=== PATIENT | female | born 1940 | race Caucasian/White ===

== ENCOUNTER → 2016-08-07 | Outpatient (CLI) | payer OTHER, BC ==
[~2016-08-07] MED LIST: ADVAIR HFA 230M12 GM INH; ADVAIR HFA115 MCG/21 INH; ALBUTEROL2.5 MG/31 INH; APAP500 PO; ASPIR 8181 MG PO; ASPIRIN325 PO; BUDEPRION XL300 MG PO; BYSTOLIC 5 MG5 M1 PO; BYSTOLIC10 MG PO; CALCIUM 600 +1 EA15 PO; CALCIUM 600 +1 EAC5 PO; CALCIUM CARBON600 MG PO; CELEXA 10 MG TA10 M1 PO; CELEXA20 MG PO; CENTRUM SILVER1 EAC4 PO; COLACE 100 MG100 MG PO; DIFLUCAN50 MG PO; DIOVAN HCT 1601 EACH PO; DIOVAN HCT 3201 EAC1 PO; DURAGESIC1 EAC2 TD; EFFIENT10 MG PO; ESTRACE1 MG PO; ESTRADIOL 1 MG T1 M1 PO; FISH OIL 1,0001 EAC7 PO; FISH OIL 1,0001 EAC8 PO; FISH OIL300 MG PO; GABAPENTIN 100100 MG PO; HYDROCHLOROTHIA25 M2 PO; IRON325 PO; LIPITOR 20 MG T20 M1 PO; LIPITOR40 MG PO; MAGNESIUM250 M1 PO; MIRALAX17 GM PO; MIRALAX255 GM PO; NORCO 10-325 T1 EACH PO; PLAVIX 75 MG TA75 M1 PO; PROTONIX40 M2 PO; SENNA S TABLET1 EACH PO; SPIRIVA INH; STIOLTO RESPIMAT4 GM INH; TRAMADOL 50 MG50 MG PO; VENTOLIN HFA INH8 GM INH; VITAMIN C500 M1 PO; VITAMINC500 PO; VOLTAREN 50MG T50 MG PO; VOLTAREN GEL 1100 G1 TRANSDERM; VOLTAREN GEL 1100 G2 TOP; WELLBUTRIN XL150 MG PO
== END ==
LOC: HYPER 07:12
DX: L97.212 Non-pressure chronic ulcer of right calf with fat layer exposed (principal); I70.203 Unspecified atherosclerosis of native arteries of extremities, bilateral legs; I50.20 Unspecified systolic (congestive) heart failure; I25.10 Atherosclerotic heart disease of native coronary artery without angina pectoris; I73.9 Peripheral vascular disease, unspecified; K21.9 Gastro-esophageal reflux disease without esophagitis; M19.90 Unspecified osteoarthritis, unspecified site; Z86.718 Personal history of other venous thrombosis and embolism; Z87.891 Personal history of nicotine dependence; Z72.89 Other problems related to lifestyle

== ENCOUNTER → 2016-10-21 | Outpatient (CLI) | payer OTHER, BC | LOC: HYPER 10-10 15:15 | DX: T63.301D Toxic effect of unspecified spider venom, accidental (unintentional), subsequent encounter (principal); L97.212 Non-pressure chronic ulcer of right calf with fat layer exposed; I70.203 Unspecified atherosclerosis of native arteries of extremities, bilateral legs; I50.20 Unspecified systolic (congestive) heart failure; I25.10 Atherosclerotic heart disease of native coronary artery without angina pectoris; K21.9 Gastro-esophageal reflux disease without esophagitis; M19.90 Unspecified osteoarthritis, unspecified site; Z90.710 Acquired absence of both cervix and uterus; Z87.891 Personal history of nicotine dependence; Z72.89 Other problems related to lifestyle ==

== ENCOUNTER → 2016-10-22 | Outpatient (CLI) | payer OTHER, BC ==
[2016-10-22 11:05] VITALS: BP 126/41
[2016-10-22 13:05] VITALS: BP 127/37
== END ==
LOC: OPONC 10-21 08:21
DX: D50.9 Iron deficiency anemia, unspecified (principal)
CPT/HCPCS: 95000

== ENCOUNTER → 2016-10-28 | Outpatient (CLI) | payer OTHER, BC ==
[~2016-10-28] MED LIST changes: +ASPIRIN EC81 M1 PO; +FISH OIL 1,2001 EAC4 PO; +NEURONTIN 300300 M1 PO; +NEURONTIN300 MG PO
[2016-10-28 11:10] VITALS: BP 125/34
[2016-10-28 12:30] VITALS: BP 130/34
== END ==
LOC: OPONC 08:11
DX: D50.9 Iron deficiency anemia, unspecified (principal)
CPT/HCPCS: 95000

== ENCOUNTER → 2016-11-04 | Outpatient (CLI) | payer OTHER, BC ==
[~2016-11-04] MED LIST changes: -ASPIRIN EC81 M1 PO; -FISH OIL 1,2001 EAC4 PO; -NEURONTIN 300300 M1 PO; -NEURONTIN300 MG PO
[2016-11-04 12:17] VITALS: BP 127/38
== END ==
LOC: OPONC 06:23
DX: D50.9 Iron deficiency anemia, unspecified (principal)
CPT/HCPCS: 95000

== ENCOUNTER → 2016-11-11 | Outpatient (CLI) | payer OTHER, BC ==
[2016-11-11 11:20] VITALS: BP 112/32
[2016-11-11 13:30] VITALS: BP 138/46
== END ==
LOC: OPONC 07:01
DX: D50.8 Other iron deficiency anemias (principal)
CPT/HCPCS: 95000; 95001

== ENCOUNTER → 2016-11-29 | Outpatient (CLI) | payer OTHER, BC ==
[~2016-11-29] MED LIST changes: +ASPIRIN EC81 M1 PO; +FISH OIL 1,2001 EAC4 PO; +NEURONTIN 300300 M1 PO; +NEURONTIN300 MG PO
[2016-11-29 09:58] VITALS: BP 145/50; BP 151/55
== END ==
LOC: OPONC 06:20
DX: D50.0 Iron deficiency anemia secondary to blood loss (chronic) (principal)
CPT/HCPCS: 91030

== ENCOUNTER → 2016-12-02 | Outpatient (CLI) | payer OTHER, BC | LOC: HYPER 07:09 | DX: L97.212 Non-pressure chronic ulcer of right calf with fat layer exposed (principal); I70.203 Unspecified atherosclerosis of native arteries of extremities, bilateral legs; I50.20 Unspecified systolic (congestive) heart failure; I25.10 Atherosclerotic heart disease of native coronary artery without angina pectoris; I73.9 Peripheral vascular disease, unspecified; K21.9 Gastro-esophageal reflux disease without esophagitis; M19.90 Unspecified osteoarthritis, unspecified site; Z86.718 Personal history of other venous thrombosis and embolism; Z87.891 Personal history of nicotine dependence; Z72.89 Other problems related to lifestyle ==

== ENCOUNTER → 2017-01-01 | Outpatient (CLI) | payer OTHER, BC | LOC: HYPER 07:09 | DX: T63.301D Toxic effect of unspecified spider venom, accidental (unintentional), subsequent encounter (principal); L97.212 Non-pressure chronic ulcer of right calf with fat layer exposed; I70.203 Unspecified atherosclerosis of native arteries of extremities, bilateral legs; R60.0 Localized edema; I50.20 Unspecified systolic (congestive) heart failure; I25.10 Atherosclerotic heart disease of native coronary artery without angina pectoris; K21.9 Gastro-esophageal reflux disease without esophagitis; M19.90 Unspecified osteoarthritis, unspecified site; Z90.710 Acquired absence of both cervix and uterus; Z87.891 Personal history of nicotine dependence; Z72.89 Other problems related to lifestyle; Z68.27 Body mass index [BMI] 27.0-27.9, adult ==

== ENCOUNTER → 2017-01-08 | Outpatient (CLI) | payer OTHER, BC | LOC: HYPER 07:10 | DX: L97.212 Non-pressure chronic ulcer of right calf with fat layer exposed (principal); I70.203 Unspecified atherosclerosis of native arteries of extremities, bilateral legs; I25.10 Atherosclerotic heart disease of native coronary artery without angina pectoris; I50.9 Heart failure, unspecified; I73.9 Peripheral vascular disease, unspecified; K21.9 Gastro-esophageal reflux disease without esophagitis; M19.90 Unspecified osteoarthritis, unspecified site; Z86.718 Personal history of other venous thrombosis and embolism; Z87.891 Personal history of nicotine dependence; Z72.89 Other problems related to lifestyle ==

== ENCOUNTER → 2017-01-15 | Outpatient (CLI) | payer OTHER, BC ==
[2017-01-15 11:00] VITALS: BP 108/39; BP 116/42
== END ==
LOC: OPONC 06:21
DX: D50.9 Iron deficiency anemia, unspecified (principal)
CPT/HCPCS: 91030

== ENCOUNTER → 2017-01-22 | Outpatient (CLI) | payer OTHER, BC | LOC: HYPER 07:06 | DX: I70.232 Atherosclerosis of native arteries of right leg with ulceration of calf (principal); L97.212 Non-pressure chronic ulcer of right calf with fat layer exposed; I50.20 Unspecified systolic (congestive) heart failure; I25.10 Atherosclerotic heart disease of native coronary artery without angina pectoris; K21.9 Gastro-esophageal reflux disease without esophagitis; M19.90 Unspecified osteoarthritis, unspecified site; Z90.710 Acquired absence of both cervix and uterus; Z87.891 Personal history of nicotine dependence; Z72.89 Other problems related to lifestyle ==

== ENCOUNTER → 2017-01-23 | Outpatient (CLI) | payer OTHER, BC ==
[2017-01-23 12:12] VITALS: BP 114/39
[2017-01-23 12:17] LABS: HEMATOCRIT 24.6 % (37.0-47.0); HEMOGLOBIN 8.2 gm/dL (12.0-15.0)
[2017-01-23 13:05] VITALS: BP 123/66
== END ==
LOC: OPONC 06:24
PROVIDERS: Internal Medicine
DX: D50.9 Iron deficiency anemia, unspecified (principal); R53.83 Other fatigue; R06.02 Shortness of breath
CPT/HCPCS: 95000

== ENCOUNTER → 2017-01-29 | Outpatient (CLI) | payer OTHER, BC ==
[2017-01-29 12:50] VITALS: BP 144/49
[2017-01-29 14:05] VITALS: BP 144/51
== END ==
LOC: OPONC 00:34
DX: D50.9 Iron deficiency anemia, unspecified (principal); R06.02 Shortness of breath; R53.83 Other fatigue
CPT/HCPCS: 95000

== ENCOUNTER → 2017-01-31 | Outpatient (CLI) | payer OTHER, BC ==
[2017-01-31 13:00] VITALS: BP 114/33
[2017-01-31 13:30] VITALS: BP 104/38
== END ==
LOC: OPONC 01:36
DX: D50.9 Iron deficiency anemia, unspecified (principal)
CPT/HCPCS: 95000

== ENCOUNTER → 2017-02-03 | Outpatient (CLI) | payer OTHER, BC ==
[2017-02-03 10:20] VITALS: BP 110/33
[2017-02-03 11:35] VITALS: BP 154/47
== END ==
LOC: OPONC 02:08
DX: D50.9 Iron deficiency anemia, unspecified (principal)
CPT/HCPCS: 95000

== ENCOUNTER → 2017-02-12 | Outpatient (CLI) | payer OTHER, BC | LOC: HYPER 06:56 | DX: L97.212 Non-pressure chronic ulcer of right calf with fat layer exposed (principal); I70.203 Unspecified atherosclerosis of native arteries of extremities, bilateral legs; I25.10 Atherosclerotic heart disease of native coronary artery without angina pectoris; I73.9 Peripheral vascular disease, unspecified; K21.9 Gastro-esophageal reflux disease without esophagitis; I50.9 Heart failure, unspecified; Z86.718 Personal history of other venous thrombosis and embolism; M19.90 Unspecified osteoarthritis, unspecified site; Z90.710 Acquired absence of both cervix and uterus; Z87.891 Personal history of nicotine dependence; Z72.89 Other problems related to lifestyle ==

== ENCOUNTER → 2017-02-28 | Outpatient (CLI) | payer OTHER, BC | LOC: OPONC 01:00 | DX: D50.0 Iron deficiency anemia secondary to blood loss (chronic) (principal) | CPT/HCPCS: 95116 ==

== ENCOUNTER → 2017-03-06 | Outpatient (CLI) | payer OTHER, BC | LOC: HYPER 02-27 13:34 | DX: T63.301D Toxic effect of unspecified spider venom, accidental (unintentional), subsequent encounter (principal); I70.203 Unspecified atherosclerosis of native arteries of extremities, bilateral legs; L97.212 Non-pressure chronic ulcer of right calf with fat layer exposed; R60.0 Localized edema; I50.20 Unspecified systolic (congestive) heart failure; I25.10 Atherosclerotic heart disease of native coronary artery without angina pectoris; I73.9 Peripheral vascular disease, unspecified; K21.9 Gastro-esophageal reflux disease without esophagitis; M19.90 Unspecified osteoarthritis, unspecified site; Z90.710 Acquired absence of both cervix and uterus; Z87.891 Personal history of nicotine dependence; Z72.89 Other problems related to lifestyle; W57.XXXD Bitten or stung by nonvenomous insect and other nonvenomous arthropods, subsequent encounter ==

== ENCOUNTER → 2017-03-13 | Outpatient (CLI) | payer OTHER, BC | LOC: HYPER 07:09 | DX: I70.232 Atherosclerosis of native arteries of right leg with ulceration of calf (principal); L97.212 Non-pressure chronic ulcer of right calf with fat layer exposed; I50.20 Unspecified systolic (congestive) heart failure; I25.10 Atherosclerotic heart disease of native coronary artery without angina pectoris; K21.9 Gastro-esophageal reflux disease without esophagitis; M19.90 Unspecified osteoarthritis, unspecified site; Z90.710 Acquired absence of both cervix and uterus; Z87.891 Personal history of nicotine dependence; Z72.89 Other problems related to lifestyle ==

== ENCOUNTER → 2017-03-20 | Outpatient (CLI) | payer OTHER, BC ==
[~2017-03-20] MED LIST changes: +CALCIUM 600 +1 EAC1 PO; +TYLENOL EXTRA500 MG PO; +VALSARTAN-HCTZ1 EAC1 PO; +VOLTAREN GEL 1100 G1 TOP; -VOLTAREN GEL 1100 G1 TRANSDERM; +ZYVOX600 MG PO
== END ==
LOC: HYPER 03-19 14:31
DX: L97.212 Non-pressure chronic ulcer of right calf with fat layer exposed (principal); I70.203 Unspecified atherosclerosis of native arteries of extremities, bilateral legs; I50.20 Unspecified systolic (congestive) heart failure; B95.62 Methicillin resistant Staphylococcus aureus infection as the cause of diseases classified elsewhere; I25.10 Atherosclerotic heart disease of native coronary artery without angina pectoris; I73.9 Peripheral vascular disease, unspecified; K21.9 Gastro-esophageal reflux disease without esophagitis; M19.90 Unspecified osteoarthritis, unspecified site; Z87.891 Personal history of nicotine dependence; Z72.89 Other problems related to lifestyle; Z90.710 Acquired absence of both cervix and uterus

== ENCOUNTER → 2017-03-21 | Outpatient (CLI) | payer OTHER, BC ==
[~2017-03-21] VITALS: Ht 152.4 cm; Wt 64.4 kg
--- NOTE | ~2017-03-21 | P ---
[facility] [place] [address] PROCEDURE REPORT Name: LUISTHIAGO NELSON Room #: REG [facility]#: [id number] Admission: 03/21/17 Attend Phys: Nikhil Eagle Discharge: Date of : 40 Report #: [id number] THIS REPORT FOR: //name// CC: Nikhil Reid MD DATE OF PROCEDURE: 03/21/2017. PROCEDURE PERFORMED: Upper endoscopy with small bowel enteroscopy and bleeding control. 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 The patient has a history of anticoagulation therapy due to atrial fibrillation, this has been held for the last several days. Plan is for EGD with enteroscopy. DESCRIPTION OF PROCEDURE: The risks and benefits of the procedure were explained to the patient, those risks including but not limited to bleeding, perforation, the risk of sedation. She understood these risks and gave informed consent. Sedation was given using propofol per anesthesia. Next, using [employer] small bowel enteroscope, the scope was placed in the patient's mouth and advanced under direct vision through the esophagus, stomach and into the duodenum and into the jejunum, I was able to advance the scope to approximately 130 cm. The scope was then slowly withdrawn. Two nonbleeding small AVMs were noted within the jejunum both were cauterized with a 7-Tuvaluan bipolar cautery. No evidence of bleeding after cauterization. A single AVM was also noted in the stomach, not nonbleeding also cauterized, otherwise normal exam, the scope was then withdrawn and the procedure terminated. The patient tolerated the procedure well. IMPRESSION: 1. Two small nonbleeding AVMs noted in the jejunum, both were cauterized. 2. Small gastric AVM also cauterized. RECOMMENDATIONS: 1. Observe the patient post-procedure. 2. Continue IV iron therapy and monitoring hemoglobin. Thank you for allowing me to participate in her care. By: [id number] Nikhil Glover MD /nt
== END | disposition home or self-care (01) ==
LOC: GI 08:21
DX: K55.20 Angiodysplasia of colon without hemorrhage (principal); K31.819 Angiodysplasia of stomach and duodenum without bleeding; I13.0 Hypertensive heart and chronic kidney disease with heart failure and stage 1 through stage 4 chronic kidney disease, or unspecified chronic kidney disease; I50.9 Heart failure, unspecified; N18.9 Chronic kidney disease, unspecified; I25.2 Old myocardial infarction; I25.10 Atherosclerotic heart disease of native coronary artery without angina pectoris; J43.9 Emphysema, unspecified; E78.00 Pure hypercholesterolemia, unspecified; M19.90 Unspecified osteoarthritis, unspecified site; K21.9 Gastro-esophageal reflux disease without esophagitis; F32.89 Other specified depressive episodes; G47.33 Obstructive sleep apnea (adult) (pediatric); Z95.5 Presence of coronary angioplasty implant and graft; Z88.8 Allergy status to other drugs, medicaments and biological substances; Z90.710 Acquired absence of both cervix and uterus; Z98.890 Other specified postprocedural states; Z87.891 Personal history of nicotine dependence; Z86.73 Personal history of transient ischemic attack (TIA), and cerebral infarction without residual deficits; Z87.19 Personal history of other diseases of the digestive system; Z79.82 Long term (current) use of aspirin; Z79.899 Other long term (current) drug therapy
CPT/HCPCS: 62110

== ENCOUNTER → 2017-03-27 | Outpatient (CLI) | payer OTHER, BC | LOC: HYPER 07:10 | DX: L97.312 Non-pressure chronic ulcer of right ankle with fat layer exposed (principal); I70.203 Unspecified atherosclerosis of native arteries of extremities, bilateral legs; I50.20 Unspecified systolic (congestive) heart failure; I25.10 Atherosclerotic heart disease of native coronary artery without angina pectoris; K21.9 Gastro-esophageal reflux disease without esophagitis; M19.90 Unspecified osteoarthritis, unspecified site; Z87.891 Personal history of nicotine dependence; Z72.89 Other problems related to lifestyle; Z90.710 Acquired absence of both cervix and uterus ==

== ENCOUNTER → 2017-04-03 | Outpatient (CLI) | payer OTHER, BC | LOC: HYPER 06:55 | DX: T63.301D Toxic effect of unspecified spider venom, accidental (unintentional), subsequent encounter (principal); L97.212 Non-pressure chronic ulcer of right calf with fat layer exposed; I70.203 Unspecified atherosclerosis of native arteries of extremities, bilateral legs; R60.0 Localized edema; I50.20 Unspecified systolic (congestive) heart failure; L03.115 Cellulitis of right lower limb; B95.62 Methicillin resistant Staphylococcus aureus infection as the cause of diseases classified elsewhere; I25.10 Atherosclerotic heart disease of native coronary artery without angina pectoris; I73.9 Peripheral vascular disease, unspecified; K21.9 Gastro-esophageal reflux disease without esophagitis; M19.90 Unspecified osteoarthritis, unspecified site; Z90.710 Acquired absence of both cervix and uterus; Z87.891 Personal history of nicotine dependence; Z72.89 Other problems related to lifestyle; W57.XXXD Bitten or stung by nonvenomous insect and other nonvenomous arthropods, subsequent encounter ==

== ENCOUNTER → 2017-04-15 | Outpatient (CLI) | payer OTHER, BC | LOC: HYPER 06:51 | DX: L97.212 Non-pressure chronic ulcer of right calf with fat layer exposed (principal); I70.203 Unspecified atherosclerosis of native arteries of extremities, bilateral legs; I50.20 Unspecified systolic (congestive) heart failure; I25.10 Atherosclerotic heart disease of native coronary artery without angina pectoris; I73.9 Peripheral vascular disease, unspecified; K21.9 Gastro-esophageal reflux disease without esophagitis; M19.90 Unspecified osteoarthritis, unspecified site; Z87.891 Personal history of nicotine dependence; Z72.89 Other problems related to lifestyle; Z90.710 Acquired absence of both cervix and uterus ==

== ENCOUNTER → 2017-04-21 | Outpatient (CLI) | payer OTHER, BC | LOC: HYPER 06:43 | DX: L97.212 Non-pressure chronic ulcer of right calf with fat layer exposed (principal); I70.203 Unspecified atherosclerosis of native arteries of extremities, bilateral legs; I50.20 Unspecified systolic (congestive) heart failure; B95.62 Methicillin resistant Staphylococcus aureus infection as the cause of diseases classified elsewhere; I25.10 Atherosclerotic heart disease of native coronary artery without angina pectoris; I73.9 Peripheral vascular disease, unspecified; K21.9 Gastro-esophageal reflux disease without esophagitis; M19.90 Unspecified osteoarthritis, unspecified site; Z90.710 Acquired absence of both cervix and uterus; Z87.891 Personal history of nicotine dependence; Z72.89 Other problems related to lifestyle ==

== ENCOUNTER → 2017-05-06 | Outpatient (CLI) | payer OTHER, BC | LOC: HYPER 07:09 | DX: L97.212 Non-pressure chronic ulcer of right calf with fat layer exposed (principal); I70.203 Unspecified atherosclerosis of native arteries of extremities, bilateral legs; I50.20 Unspecified systolic (congestive) heart failure; B95.62 Methicillin resistant Staphylococcus aureus infection as the cause of diseases classified elsewhere; I25.10 Atherosclerotic heart disease of native coronary artery without angina pectoris; K21.9 Gastro-esophageal reflux disease without esophagitis; M19.90 Unspecified osteoarthritis, unspecified site; Z87.891 Personal history of nicotine dependence; Z72.89 Other problems related to lifestyle; Z90.710 Acquired absence of both cervix and uterus ==

== ENCOUNTER → 2017-05-20 | Outpatient (CLI) | payer OTHER, BC | LOC: CAT 05-12 06:32 | DX: R91.1 Solitary pulmonary nodule (principal) ==

== ENCOUNTER → 2017-05-28 | Outpatient (CLI) | payer OTHER, BC | LOC: HYPER 07:01 | DX: T63.301D Toxic effect of unspecified spider venom, accidental (unintentional), subsequent encounter (principal); L97.212 Non-pressure chronic ulcer of right calf with fat layer exposed; R60.0 Localized edema; I50.20 Unspecified systolic (congestive) heart failure; B95.62 Methicillin resistant Staphylococcus aureus infection as the cause of diseases classified elsewhere; I25.10 Atherosclerotic heart disease of native coronary artery without angina pectoris; K21.9 Gastro-esophageal reflux disease without esophagitis; M19.90 Unspecified osteoarthritis, unspecified site; Z90.710 Acquired absence of both cervix and uterus; Z87.891 Personal history of nicotine dependence; Z72.89 Other problems related to lifestyle; W57.XXXD Bitten or stung by nonvenomous insect and other nonvenomous arthropods, subsequent encounter ==

== ENCOUNTER → 2017-06-19 | Outpatient (CLI) | payer OTHER, BC | LOC: HYPER 06-18 10:15 | DX: L97.212 Non-pressure chronic ulcer of right calf with fat layer exposed (principal); I70.203 Unspecified atherosclerosis of native arteries of extremities, bilateral legs; I50.20 Unspecified systolic (congestive) heart failure; B95.62 Methicillin resistant Staphylococcus aureus infection as the cause of diseases classified elsewhere; I25.10 Atherosclerotic heart disease of native coronary artery without angina pectoris; K21.9 Gastro-esophageal reflux disease without esophagitis; M19.90 Unspecified osteoarthritis, unspecified site; Z87.891 Personal history of nicotine dependence; Z72.89 Other problems related to lifestyle; Z90.710 Acquired absence of both cervix and uterus ==

== ENCOUNTER → 2017-07-17 | Outpatient (CLI) | payer OTHER, BC | LOC: HYPER 06-25 10:42 | DX: I70.242 Atherosclerosis of native arteries of left leg with ulceration of calf (principal); L97.212 Non-pressure chronic ulcer of right calf with fat layer exposed; I50.20 Unspecified systolic (congestive) heart failure; I25.10 Atherosclerotic heart disease of native coronary artery without angina pectoris; K21.9 Gastro-esophageal reflux disease without esophagitis; M19.90 Unspecified osteoarthritis, unspecified site; Z90.710 Acquired absence of both cervix and uterus; Z87.891 Personal history of nicotine dependence; Z72.89 Other problems related to lifestyle ==

== ENCOUNTER → 2017-08-05 | Outpatient (CLI) | payer OTHER, BC | LOC: HYPER 06:56 | DX: T63.301D Toxic effect of unspecified spider venom, accidental (unintentional), subsequent encounter (principal); I70.203 Unspecified atherosclerosis of native arteries of extremities, bilateral legs; L97.212 Non-pressure chronic ulcer of right calf with fat layer exposed; R60.0 Localized edema; I50.20 Unspecified systolic (congestive) heart failure; I25.10 Atherosclerotic heart disease of native coronary artery without angina pectoris; K21.9 Gastro-esophageal reflux disease without esophagitis; M19.90 Unspecified osteoarthritis, unspecified site; Z90.710 Acquired absence of both cervix and uterus; Z87.891 Personal history of nicotine dependence; Z72.89 Other problems related to lifestyle; Y83.8 Other surgical procedures as the cause of abnormal reaction of the patient, or of later complication, without mention of misadventure at the time of the procedure ==

== ENCOUNTER → 2017-08-25 | Outpatient (CLI) | payer OTHER, BC | LOC: HYPER 07:02 | DX: I70.203 Unspecified atherosclerosis of native arteries of extremities, bilateral legs (principal); L97.212 Non-pressure chronic ulcer of right calf with fat layer exposed; I11.0 Hypertensive heart disease with heart failure; I50.20 Unspecified systolic (congestive) heart failure; I25.10 Atherosclerotic heart disease of native coronary artery without angina pectoris; K21.9 Gastro-esophageal reflux disease without esophagitis; M19.90 Unspecified osteoarthritis, unspecified site; B95.62 Methicillin resistant Staphylococcus aureus infection as the cause of diseases classified elsewhere; Z90.710 Acquired absence of both cervix and uterus; Z72.89 Other problems related to lifestyle; Z87.891 Personal history of nicotine dependence ==

== ENCOUNTER → 2017-09-01 | Outpatient (CLI) | payer OTHER, BC | LOC: HYPER 06:45 | DX: T63.301D Toxic effect of unspecified spider venom, accidental (unintentional), subsequent encounter (principal); L97.212 Non-pressure chronic ulcer of right calf with fat layer exposed; I70.203 Unspecified atherosclerosis of native arteries of extremities, bilateral legs; R60.0 Localized edema; I50.20 Unspecified systolic (congestive) heart failure; B95.62 Methicillin resistant Staphylococcus aureus infection as the cause of diseases classified elsewhere; I25.10 Atherosclerotic heart disease of native coronary artery without angina pectoris; I73.9 Peripheral vascular disease, unspecified; K21.9 Gastro-esophageal reflux disease without esophagitis; M19.90 Unspecified osteoarthritis, unspecified site; Z90.710 Acquired absence of both cervix and uterus; Z87.891 Personal history of nicotine dependence; Z72.89 Other problems related to lifestyle; Y83.8 Other surgical procedures as the cause of abnormal reaction of the patient, or of later complication, without mention of misadventure at the time of the procedure ==

== ENCOUNTER → 2017-09-15 | Outpatient (CLI) | payer OTHER, BC | LOC: HYPER 07:03 | DX: L97.212 Non-pressure chronic ulcer of right calf with fat layer exposed (principal); I70.203 Unspecified atherosclerosis of native arteries of extremities, bilateral legs; I50.20 Unspecified systolic (congestive) heart failure; I25.10 Atherosclerotic heart disease of native coronary artery without angina pectoris; K21.9 Gastro-esophageal reflux disease without esophagitis; M19.90 Unspecified osteoarthritis, unspecified site; Z90.710 Acquired absence of both cervix and uterus; Z87.891 Personal history of nicotine dependence; Z72.89 Other problems related to lifestyle ==

== ENCOUNTER → 2017-09-29 | Outpatient (CLI) | payer OTHER, BC | LOC: HYPER 07:02 | DX: L97.212 Non-pressure chronic ulcer of right calf with fat layer exposed (principal); I70.238 Atherosclerosis of native arteries of right leg with ulceration of other part of lower leg; I50.20 Unspecified systolic (congestive) heart failure; I25.10 Atherosclerotic heart disease of native coronary artery without angina pectoris; K21.9 Gastro-esophageal reflux disease without esophagitis; M19.90 Unspecified osteoarthritis, unspecified site; Z87.891 Personal history of nicotine dependence; Z72.89 Other problems related to lifestyle; Z90.710 Acquired absence of both cervix and uterus ==

== ENCOUNTER → 2017-10-13 | Outpatient (CLI) | payer OTHER, BC | LOC: HYPER 06:49 | DX: T63.301D Toxic effect of unspecified spider venom, accidental (unintentional), subsequent encounter (principal); I70.203 Unspecified atherosclerosis of native arteries of extremities, bilateral legs; L97.212 Non-pressure chronic ulcer of right calf with fat layer exposed; R60.0 Localized edema; I50.20 Unspecified systolic (congestive) heart failure; I25.10 Atherosclerotic heart disease of native coronary artery without angina pectoris; I50.9 Heart failure, unspecified; I73.9 Peripheral vascular disease, unspecified; K21.9 Gastro-esophageal reflux disease without esophagitis; M19.90 Unspecified osteoarthritis, unspecified site; Z90.710 Acquired absence of both cervix and uterus; Z87.891 Personal history of nicotine dependence; Z72.89 Other problems related to lifestyle; X58.XXXD Exposure to other specified factors, subsequent encounter ==

== ENCOUNTER → 2017-10-27 | Outpatient (CLI) | payer OTHER, BC | LOC: HYPER 07:01 | DX: T63.301D Toxic effect of unspecified spider venom, accidental (unintentional), subsequent encounter (principal); L97.212 Non-pressure chronic ulcer of right calf with fat layer exposed; I70.203 Unspecified atherosclerosis of native arteries of extremities, bilateral legs; R60.0 Localized edema; I50.20 Unspecified systolic (congestive) heart failure; I25.10 Atherosclerotic heart disease of native coronary artery without angina pectoris; I73.9 Peripheral vascular disease, unspecified; M19.90 Unspecified osteoarthritis, unspecified site; K21.9 Gastro-esophageal reflux disease without esophagitis; Z90.710 Acquired absence of both cervix and uterus; Z87.891 Personal history of nicotine dependence; X58.XXXD Exposure to other specified factors, subsequent encounter ==

== ENCOUNTER → 2017-11-10 | Outpatient (CLI) | payer OTHER, BC | LOC: HYPER 06:57 | DX: T63.301D Toxic effect of unspecified spider venom, accidental (unintentional), subsequent encounter (principal); L97.212 Non-pressure chronic ulcer of right calf with fat layer exposed; I70.203 Unspecified atherosclerosis of native arteries of extremities, bilateral legs; R60.0 Localized edema; I50.20 Unspecified systolic (congestive) heart failure; B95.62 Methicillin resistant Staphylococcus aureus infection as the cause of diseases classified elsewhere; I25.10 Atherosclerotic heart disease of native coronary artery without angina pectoris; I50.9 Heart failure, unspecified; K21.9 Gastro-esophageal reflux disease without esophagitis; I73.9 Peripheral vascular disease, unspecified; M19.90 Unspecified osteoarthritis, unspecified site; Z90.710 Acquired absence of both cervix and uterus; Z87.891 Personal history of nicotine dependence; Y83.8 Other surgical procedures as the cause of abnormal reaction of the patient, or of later complication, without mention of misadventure at the time of the procedure ==

== ENCOUNTER → 2017-11-24 | Outpatient (CLI) | payer OTHER, BC | LOC: HYPER 06:49 | DX: T63.301D Toxic effect of unspecified spider venom, accidental (unintentional), subsequent encounter (principal); I70.203 Unspecified atherosclerosis of native arteries of extremities, bilateral legs; L97.212 Non-pressure chronic ulcer of right calf with fat layer exposed; L97.222 Non-pressure chronic ulcer of left calf with fat layer exposed; I50.20 Unspecified systolic (congestive) heart failure; R60.0 Localized edema; I25.10 Atherosclerotic heart disease of native coronary artery without angina pectoris; I73.9 Peripheral vascular disease, unspecified; K21.9 Gastro-esophageal reflux disease without esophagitis; M19.90 Unspecified osteoarthritis, unspecified site; Z90.710 Acquired absence of both cervix and uterus; Z87.891 Personal history of nicotine dependence; X58.XXXD Exposure to other specified factors, subsequent encounter ==

== ENCOUNTER → 2017-12-08 | Outpatient (CLI) | payer OTHER, BC | LOC: HYPER 07:06 | DX: T63.301D Toxic effect of unspecified spider venom, accidental (unintentional), subsequent encounter (principal); I70.203 Unspecified atherosclerosis of native arteries of extremities, bilateral legs; L97.212 Non-pressure chronic ulcer of right calf with fat layer exposed; R60.0 Localized edema; I50.20 Unspecified systolic (congestive) heart failure; L03.115 Cellulitis of right lower limb; B95.62 Methicillin resistant Staphylococcus aureus infection as the cause of diseases classified elsewhere; I25.10 Atherosclerotic heart disease of native coronary artery without angina pectoris; I73.9 Peripheral vascular disease, unspecified; K21.9 Gastro-esophageal reflux disease without esophagitis; M19.90 Unspecified osteoarthritis, unspecified site; Z90.710 Acquired absence of both cervix and uterus; Z87.891 Personal history of nicotine dependence; W57.XXXD Bitten or stung by nonvenomous insect and other nonvenomous arthropods, subsequent encounter ==

== ENCOUNTER → 2017-12-24 | Outpatient (CLI) | payer OTHER, BC | LOC: HYPER 12-22 06:58 | DX: T63.301D Toxic effect of unspecified spider venom, accidental (unintentional), subsequent encounter (principal); L97.212 Non-pressure chronic ulcer of right calf with fat layer exposed; I70.203 Unspecified atherosclerosis of native arteries of extremities, bilateral legs; R60.0 Localized edema; I50.20 Unspecified systolic (congestive) heart failure; B95.62 Methicillin resistant Staphylococcus aureus infection as the cause of diseases classified elsewhere; I25.10 Atherosclerotic heart disease of native coronary artery without angina pectoris; K21.9 Gastro-esophageal reflux disease without esophagitis; M19.90 Unspecified osteoarthritis, unspecified site; Z87.891 Personal history of nicotine dependence ==

== ENCOUNTER → 2018-01-14 | Outpatient (CLI) | payer OTHER, BC | LOC: HYPER 07:05 | DX: S81.802A Unspecified open wound, left lower leg, initial encounter (principal); L97.212 Non-pressure chronic ulcer of right calf with fat layer exposed; T63.301D Toxic effect of unspecified spider venom, accidental (unintentional), subsequent encounter; I50.20 Unspecified systolic (congestive) heart failure; I25.10 Atherosclerotic heart disease of native coronary artery without angina pectoris; I73.9 Peripheral vascular disease, unspecified; K21.9 Gastro-esophageal reflux disease without esophagitis; M19.90 Unspecified osteoarthritis, unspecified site; Z90.710 Acquired absence of both cervix and uterus; Z87.891 Personal history of nicotine dependence; X58.XXXA Exposure to other specified factors, initial encounter; Y93.89 Activity, other specified; Y92.89 Other specified places as the place of occurrence of the external cause; Y99.8 Other external cause status ==

== ENCOUNTER → 2018-03-04 | Outpatient (CLI) | payer OTHER, BC | LOC: HYPER 02-11 10:56 | DX: L97.212 Non-pressure chronic ulcer of right calf with fat layer exposed (principal); S80.862D Insect bite (nonvenomous), left lower leg, subsequent encounter; I70.203 Unspecified atherosclerosis of native arteries of extremities, bilateral legs; I50.20 Unspecified systolic (congestive) heart failure; B95.62 Methicillin resistant Staphylococcus aureus infection as the cause of diseases classified elsewhere; I25.10 Atherosclerotic heart disease of native coronary artery without angina pectoris; K21.9 Gastro-esophageal reflux disease without esophagitis; M19.90 Unspecified osteoarthritis, unspecified site; Z90.710 Acquired absence of both cervix and uterus; Z87.891 Personal history of nicotine dependence; W57.XXXD Bitten or stung by nonvenomous insect and other nonvenomous arthropods, subsequent encounter ==

== ENCOUNTER 2018-03-05 18:01 | Inpatient (IN) | payer OTHER, BC ==
[~2018-03-05] VITALS: Ht 152.4 cm; Wt 64.4 kg
--- NOTE | ~2018-03-05 | HC ---
[facility] [place] [address] CONSULTATION Name: THIAGO SMITH Room #: 227-P ADM IN M.R.#: [id number] Admission: 03/05/18 Attend Phys: Durga Brambila MD Discharge: Date of : 40 Report #: [id number] THIS REPORT FOR: //name// CC: Durga Brambila DATE OF SERVICE: 03/06/2018 PERSONAL PHYSICIAN: Durga Brambila MD. CHIEF COMPLAINT: Right leg ulcerations. HISTORY OF PRESENT ILLNESS: This is a 77-year-old white female who has been a longstanding patient of [facility] for chronic care of ulcerations on her right lower extremity. The patient has currently been admitted for urinary retention. We were asked to follow the patient while she is in the hospital for her ulcerations. PAST MEDICAL HISTORY: Includes peripheral vascular disease, coronary artery disease, arthritis, chronic kidney disease, anemia, sleep apnea, hypertension, congestive heart failure, and gastroesophageal reflux disease. CURRENT MEDICATIONS: Multiple. Review the patient's medication list. DRUG ALLERGIES: VANCOMYCIN and SULINDAC. SOCIAL HISTORY: The patient still smokes approximately one and half pack of cigarettes daily, drinks alcohol socially. FAMILY HISTORY: Not pertinent to current medical condition. REVIEW OF SYSTEMS: CONSTITUTIONAL: The patient denies fevers or chills. NEUROLOGIC: The patient denies numbness, tingling in arms or legs. EYES: No complaints. ENT: No complaints. CARDIAC: The patient denies chest pain, palpitations, peripheral edema. RESPIRATORY: The patient denies shortness breath, cough or wheezes. GASTROINTESTINAL: The patient denies nausea, vomiting or abdominal pain. GENITOURINARY: The patient denies urgency or frequency, but is currently being admitted for urinary retention. MUSCULOSKELETAL: No complaints. SKIN: There is open ulceration on the right lower extremity. PHYSICAL EXAMINATION: VITAL SIGNS: Stable. The patient is afebrile. GENERAL: This is alert and oriented times 3, pleasant white female who is in [address] [place] [address] CONSULTATION Name: THIAGO SMITH Room #: 227-P ADM IN .R.#: [id number] Admission: 03/05/18 Attend Phys: Durga Brambila MD Discharge: Date of : 40 Report #: [id number] absolutely no distress. HEENT: Normocephalic, atraumatic. Extraocular movements are moist. Pupils are round. Sclerae are white. NECK: Supple, nontender, without JVD. LUNGS: Clear. HEART: Regular, without murmur. ABDOMEN: Soft, nontender. EXTREMITIES: The patient moves all extremities without difficulty. Distal pulses are 1+, dorsalis pedis and posterior tibial. Bilateral heels, foot, and toes are all without ulceration. On the right lower extremity, there is an ulceration noted, which is chronic. It is nearly totally epithelialized. There is minimal serous drainage noted without signs of infection. It is limited to breakdown of skin without signs if infection. Periulcer is otherwise intact without signs of erythema and warmth of maceration. There is no significant tunneling, tracking or undermining. Evaluation of the ulceration on the right medial calf, there is an open ulceration, which is clean and granulating, superficial, limited to breakdown of skin. There are no signs of infection. Periulcer is intact without erythema, warmth or cellulitis. There is no tunneling, tracking or undermining. Wound is otherwise clean. There is minimal serosanguineous drainage without odor. NEUROLOGIC: Cranial nerves 2-12 grossly intact. Motor and sensory grossly intact. LABORATORY VALUES: White count 7.0, hemoglobin 7.7. Albumin is 2.7. IMPRESSION: 1. Chronic ulceration, right lower extremity, on both medial and lateral calf, both limited to breakdown of the skin. Both superficial and not infected. 2. Protein-calorie malnutrition - moderate with albumin 2.7. 3. Venous insufficiency. 4. History of peripheral arterial disease. 5. History of urinary obstruction. PLAN: We will start the patient on silver foam dressings to both the ulceration, to be changed 3 times weekly. Use Kerlix and Chris for the toes to knee for control of any minor edema the patient might occur. We will continue all other current medications. We will maximize the patient's oral protein supplementation for healing. We will continue to follow the patient on an outpatient basis once she is discharged. By: [id number] Rogelio Deleon MD /nt
--- NOTE | ~2018-03-05 | HC ---
[facility] [place] [address] CONSULTATION Name: THIAGO SMITH Room #: 453-P ADM IN M.R.#: [id number] Admission: 03/05/18 Attend Phys: Durga Brambila MD Discharge: Date of : 40 Report #: [id number] THIS REPORT FOR: //name// CC: Durga Brambila CHIEF COMPLAINT: Urinary retention. HISTORY OF PRESENT ILLNESS: The patient is a 77-year-old woman who is being seen today at the request of Dr. Brambila for evaluation and management of urinary retention. She reports she has been unable to void for about 2 days prior to coming into the hospital. She does report that she has intermittent constipation and takes MiraLax. She is also under the care of Dr. Deleon for a wound on her right leg. ILLNESSES: Include vascular disease, multiple peripheral cardiac and possibly renal artery stents. Arthritis, chronic kidney disease and anemia, sleep apnea, GERD, congestive heart failure, and hypertension. MEDICATIONS: Home meds are listed and include Protonix, AccuNeb, Wellbutrin, Centrum Silver, Lipitor, Plavix, Ultram, Bystolic, Celexa, Estrace, Voltaren, aspirin, Neurontin, losartan/HCTZ, Caltrate, Tylenol ES, Zyvox, and ascorbic acid. ALLERGIES: SULINDAC, and VANCOMYCIN. SOCIAL HISTORY: She is a smoker. She does drink alcohol daily. REVIEW OF SYSTEMS: She denies shortness of breath or chest pain. PHYSICAL EXAMINATION: GENERAL: She is a comfortable appearing woman. VITAL SIGNS: Temperature is 36.7, pulse 64, respirations 18, and blood pressure 135/53. ABDOMEN: Soft, without masses. Urine is clear in the Spencer. LABORATORY DATA: White count 18.1 thousand, hemoglobin 8.8, hematocrit 26.3, platelets 384,000. Sodium 124, potassium 4.5, chloride 92, BUN 51, and creatinine 3.4. Urinalysis is clear yellow, specific gravity is 1.010, pH is 5.5, negative for protein, ketones, blood, nitrites, bilirubin, and leukocyte esterase and glucose. CT scan shows normal kidneys with a Spencer in the bladder, probable renal cysts. IMPRESSION: Urinary retention, chronic kidney disease. PLAN: 1. Leave Spencer in for several days. 2. Consider tamsulosin. [address] [address] CONSULTATION Name: THIAGO SMITH Room #: 453-P [facility] IN M.R.#: [id number] Admission: 03/05/18 Attend Phys: Durga Brambila MD Discharge: Date of : 40 Report #: [id number] 3. I would recommend that she be discharged with the Spencer and to followup with Dr. Morel who has managed her bladder previously. I am happy to reassess at any time. By: [id number] MD jt Wagner
[2018-03-05 18:03] VITALS: BP 143/121
[2018-03-05 18:39] LABS: URINE BILIRUBIN NEGATIVE (Negative); URINE BLOOD NEGATIVE (Negative); URINE CLARITY CLEAR; URINE COLOR YELLOW; URINE GLUCOSE-RANDOM* NEGATIVE (Negative); URINE KETONES NEGATIVE (Negative); URINE LEUKOCYTES-REFLEX NEGATIVE (Negative); URINE NITRITE-REFLEX NEGATIVE (Negative); URINE PROTEIN (DIPSTICK) NEGATIVE (Negative); URINE UROBILINOGEN 0.2 E.U./dl (0.2-1.0)
[2018-03-05 18:48] LABS: BASOPHILS 0.3 % (0.0-2.0); EOSINOPHILS 1.4 % (0.0-3.0); HEMATOCRIT 26.3 % (37.0-47.0); HEMOGLOBIN 8.8 gm/dL (12.0-15.0); LYMPHOCYTES 2.1 % (24.0-44.0); MCH 28.5 pg (26.0-34.0); MCHC 33.3 g/dL (28.0-37.0); MCV 85.6 fL (80.0-100.0); MONOCYTES 2.3 % (1.0-8.0); PLATELET COUNT 384 thou/uL (150-400); POLYS 93.9 % (36.0-66.0); RBC 3.08 mil/uL (4.20-5.00); RDW 14.5 % (10.5-14.5); WBC 18.1 thou/uL (4.0-11.0)
[2018-03-05 19:04] LABS: CREATININE 3.4 mg/dL (0.6-1.0); POTASSIUM 4.5 mmol/L (3.5-5.1)
[2018-03-05 19:09] LABS: ALBUMIN 2.7 g/dL (3.4-5.0); TOTAL BILIRUBIN 0.5 mg/dL (<0.1-1.0); TOTAL PROTEIN 7.3 g/dL (6.4-8.2)
[2018-03-05 20:38] VITALS: BP 124/44
[2018-03-05 21:08] VITALS: BP 124/44
[2018-03-05 21:21] VITALS: BP 120/51
[2018-03-06 05:06] VITALS: BP 135/53
[2018-03-06 07:50] VITALS: BP 108/47
[2018-03-06 08:06] LABS: HEMATOCRIT 22.3 % (37.0-47.0); HEMOGLOBIN 7.6 gm/dL (12.0-15.0); MCHC 34.1 g/dL (28.0-37.0); MCV 85.2 fL (80.0-100.0); RBC 2.61 mil/uL (4.20-5.00); RDW 14.4 % (10.5-14.5); WBC 8.5 thou/uL (4.0-11.0)
[2018-03-06 08:14] LABS: CALCIUM 8.2 mg/dL (8.5-10.1); CREATININE 2.7 mg/dL (0.6-1.0); POTASSIUM 4.1 mmol/L (3.5-5.1)
[2018-03-06 15:35] VITALS: BP 126/52
[2018-03-06 20:32] VITALS: BP 107/35
[2018-03-07 04:35] VITALS: BP 120/56
[2018-03-07 10:16] LABS: HEMATOCRIT 22.5 % (37.0-47.0); HEMOGLOBIN 7.7 gm/dL (12.0-15.0); MCH 29.8 pg (26.0-34.0); MCHC 34.5 g/dL (28.0-37.0); MCV 86.4 fL (80.0-100.0); RBC 2.6 mil/uL (4.20-5.00); RDW 14.7 % (10.5-14.5)
[2018-03-07 10:19] VITALS: BP 128/48
[2018-03-07 10:22] LABS: CALCIUM 8.3 mg/dL (8.5-10.1); CREATININE 1.7 mg/dL (0.6-1.0); POTASSIUM 4.3 mmol/L (3.5-5.1)
[2018-03-07 10:27] VITALS: BP 128/48
[2018-03-07 17:00] VITALS: BP 120/41
[2018-03-08 07:20] VITALS: BP 136/49
[2018-03-08 19:05] VITALS: BP 141/38
[2018-03-09 08:11] VITALS: BP 138/46
[2018-03-09 19:55] VITALS: BP 144/59
[2018-03-10 07:30] VITALS: BP 140/46
== END 2018-03-10 14:47 | DRG 682 ==
LOC: ER 18:01 → EROBS 20:18 → 4W 20:18 → SICU 03-07 19:00
PROVIDERS: Family Medicine; Physician Assistant
DX: N17.9 Acute kidney failure, unspecified (principal); E43 Unspecified severe protein-calorie malnutrition; L03.115 Cellulitis of right lower limb; I13.0 Hypertensive heart and chronic kidney disease with heart failure and stage 1 through stage 4 chronic kidney disease, or unspecified chronic kidney disease; L97.929 Non-pressure chronic ulcer of unspecified part of left lower leg with unspecified severity; L97.919 Non-pressure chronic ulcer of unspecified part of right lower leg with unspecified severity; E44.0 Moderate protein-calorie malnutrition; R33.8 Other retention of urine; J44.9 Chronic obstructive pulmonary disease, unspecified; N18.9 Chronic kidney disease, unspecified; K21.9 Gastro-esophageal reflux disease without esophagitis; K59.00 Constipation, unspecified; F32.9 Major depressive disorder, single episode, unspecified; I25.10 Atherosclerotic heart disease of native coronary artery without angina pectoris; M19.90 Unspecified osteoarthritis, unspecified site; I87.2 Venous insufficiency (chronic) (peripheral); F17.210 Nicotine dependence, cigarettes, uncomplicated; I73.9 Peripheral vascular disease, unspecified; I50.9 Heart failure, unspecified; Z95.5 Presence of coronary angioplasty implant and graft; Z68.27 Body mass index [BMI] 27.0-27.9, adult; Z90.710 Acquired absence of both cervix and uterus; Z99.81 Dependence on supplemental oxygen; Z79.82 Long term (current) use of aspirin; Z79.899 Other long term (current) drug therapy; Z88.1 Allergy status to other antibiotic agents; Z88.8 Allergy status to other drugs, medicaments and biological substances; Z86.73 Personal history of transient ischemic attack (TIA), and cerebral infarction without residual deficits
CPT/HCPCS: 10045; 15000

== ENCOUNTER → 2018-05-25 | Outpatient (CLI) | payer OTHER, BC | LOC: HYPER 06:51 | DX: L97.218 Non-pressure chronic ulcer of right calf with other specified severity (principal); T63.301D Toxic effect of unspecified spider venom, accidental (unintentional), subsequent encounter; B95.62 Methicillin resistant Staphylococcus aureus infection as the cause of diseases classified elsewhere; I70.203 Unspecified atherosclerosis of native arteries of extremities, bilateral legs; I50.20 Unspecified systolic (congestive) heart failure; I25.10 Atherosclerotic heart disease of native coronary artery without angina pectoris; K21.9 Gastro-esophageal reflux disease without esophagitis; M19.90 Unspecified osteoarthritis, unspecified site; Z87.891 Personal history of nicotine dependence; Z95.828 Presence of other vascular implants and grafts ==

== ENCOUNTER → 2018-06-08 | Outpatient (CLI) | payer OTHER, BC | LOC: HYPER 06:55 | DX: I70.232 Atherosclerosis of native arteries of right leg with ulceration of calf (principal); L97.212 Non-pressure chronic ulcer of right calf with fat layer exposed; B95.62 Methicillin resistant Staphylococcus aureus infection as the cause of diseases classified elsewhere; I50.20 Unspecified systolic (congestive) heart failure; I25.10 Atherosclerotic heart disease of native coronary artery without angina pectoris; K21.9 Gastro-esophageal reflux disease without esophagitis; M19.90 Unspecified osteoarthritis, unspecified site; Z87.891 Personal history of nicotine dependence ==

== ENCOUNTER → 2018-06-23 | Outpatient (CLI) | payer OTHER, BC | LOC: RAD 12:23 | DX: M19.012 Primary osteoarthritis, left shoulder (principal); M19.032 Primary osteoarthritis, left wrist; W19.XXXA Unspecified fall, initial encounter ==

== ENCOUNTER → 2018-07-06 | Outpatient (CLI) | payer OTHER, BC | LOC: HYPER 07:13 | DX: L97.212 Non-pressure chronic ulcer of right calf with fat layer exposed (principal); B95.62 Methicillin resistant Staphylococcus aureus infection as the cause of diseases classified elsewhere; I70.203 Unspecified atherosclerosis of native arteries of extremities, bilateral legs; I50.20 Unspecified systolic (congestive) heart failure; I25.10 Atherosclerotic heart disease of native coronary artery without angina pectoris; K21.9 Gastro-esophageal reflux disease without esophagitis; M19.90 Unspecified osteoarthritis, unspecified site; Z87.891 Personal history of nicotine dependence ==

== ENCOUNTER → 2018-08-06 | Outpatient (CLI) | payer OTHER, BC | LOC: HYPER 05:31 | DX: L97.212 Non-pressure chronic ulcer of right calf with fat layer exposed (principal); B95.62 Methicillin resistant Staphylococcus aureus infection as the cause of diseases classified elsewhere; I70.203 Unspecified atherosclerosis of native arteries of extremities, bilateral legs; I50.20 Unspecified systolic (congestive) heart failure; I25.10 Atherosclerotic heart disease of native coronary artery without angina pectoris; K21.9 Gastro-esophageal reflux disease without esophagitis; M19.90 Unspecified osteoarthritis, unspecified site; Z87.891 Personal history of nicotine dependence; Z95.828 Presence of other vascular implants and grafts ==

== ENCOUNTER → 2018-09-01 | Outpatient (CLI) | payer OTHER, BC | LOC: HYPER 06:41 | DX: L97.212 Non-pressure chronic ulcer of right calf with fat layer exposed (principal); S81.802D Unspecified open wound, left lower leg, subsequent encounter; I70.203 Unspecified atherosclerosis of native arteries of extremities, bilateral legs; B95.62 Methicillin resistant Staphylococcus aureus infection as the cause of diseases classified elsewhere; I50.20 Unspecified systolic (congestive) heart failure; I25.10 Atherosclerotic heart disease of native coronary artery without angina pectoris; K21.9 Gastro-esophageal reflux disease without esophagitis; M19.90 Unspecified osteoarthritis, unspecified site; Z87.891 Personal history of nicotine dependence; X58.XXXD Exposure to other specified factors, subsequent encounter ==

== ENCOUNTER → 2018-09-23 | Outpatient (CLI) | payer OTHER, BC | LOC: HYPER 07:03 | DX: L97.212 Non-pressure chronic ulcer of right calf with fat layer exposed (principal); I70.203 Unspecified atherosclerosis of native arteries of extremities, bilateral legs; I50.20 Unspecified systolic (congestive) heart failure; B95.62 Methicillin resistant Staphylococcus aureus infection as the cause of diseases classified elsewhere; T63.301D Toxic effect of unspecified spider venom, accidental (unintentional), subsequent encounter; I25.10 Atherosclerotic heart disease of native coronary artery without angina pectoris; K21.9 Gastro-esophageal reflux disease without esophagitis; M19.90 Unspecified osteoarthritis, unspecified site; Z87.891 Personal history of nicotine dependence ==

== ENCOUNTER → 2018-10-07 | Outpatient (CLI) | payer OTHER, BC | LOC: HYPER 06:33 | DX: L97.212 Non-pressure chronic ulcer of right calf with fat layer exposed (principal); B95.62 Methicillin resistant Staphylococcus aureus infection as the cause of diseases classified elsewhere; I70.203 Unspecified atherosclerosis of native arteries of extremities, bilateral legs; I50.20 Unspecified systolic (congestive) heart failure; I25.10 Atherosclerotic heart disease of native coronary artery without angina pectoris; K21.9 Gastro-esophageal reflux disease without esophagitis; M19.90 Unspecified osteoarthritis, unspecified site; Z87.891 Personal history of nicotine dependence ==

== ENCOUNTER → 2018-10-21 | Outpatient (CLI) | payer OTHER, BC | LOC: HYPER 06:40 | DX: L97.212 Non-pressure chronic ulcer of right calf with fat layer exposed (principal); T63.301D Toxic effect of unspecified spider venom, accidental (unintentional), subsequent encounter; I50.20 Unspecified systolic (congestive) heart failure; I73.9 Peripheral vascular disease, unspecified; I25.10 Atherosclerotic heart disease of native coronary artery without angina pectoris; K21.9 Gastro-esophageal reflux disease without esophagitis; M19.90 Unspecified osteoarthritis, unspecified site; B95.62 Methicillin resistant Staphylococcus aureus infection as the cause of diseases classified elsewhere; Z87.891 Personal history of nicotine dependence ==

== ENCOUNTER → 2018-11-04 | Outpatient (CLI) | payer OTHER, BC ==
[~2018-11-04] MED LIST changes: +BUPROPION HCL150 M1 PO; +DICLOFENAC SOD50 M1 PO; +DIOVAN320 MG PO
== END ==
LOC: HYPER 06:51
DX: I70.232 Atherosclerosis of native arteries of right leg with ulceration of calf (principal); L97.212 Non-pressure chronic ulcer of right calf with fat layer exposed; T63.301D Toxic effect of unspecified spider venom, accidental (unintentional), subsequent encounter; B95.62 Methicillin resistant Staphylococcus aureus infection as the cause of diseases classified elsewhere; I70.202 Unspecified atherosclerosis of native arteries of extremities, left leg; I50.20 Unspecified systolic (congestive) heart failure; I25.10 Atherosclerotic heart disease of native coronary artery without angina pectoris; K21.9 Gastro-esophageal reflux disease without esophagitis; M19.90 Unspecified osteoarthritis, unspecified site; Z87.891 Personal history of nicotine dependence

== ENCOUNTER 2018-11-18 13:31 | Inpatient (IN) | payer OTHER, BC ==
[~2018-11-18] VITALS: Ht 152.4 cm; Wt 51.3 kg
[~2018-11-18 13:31] MED LIST changes: -BUPROPION HCL150 M1 PO; -DICLOFENAC SOD50 M1 PO; -DIOVAN320 MG PO
[2018-11-18 13:38] VITALS: BP 114/24
[2018-11-18 13:59] LABS: RBC 2.32 mil/uL (4.20-5.00); RDW 17.3 % (10.5-14.5); WBC 3.3 thou/uL (4.0-11.0)
[2018-11-18 14:01] LABS: ABSOLUTE NEUTROPHILS 2.2 thou/uL (1.4-8.2); BASOPHILS 1.1 % (0.0-2.0); EOSINOPHILS 1.1 % (0.0-3.0); MCH 25.7 pg (26.0-34.0); MCHC 31.5 g/dL (28.0-37.0); MCV 81.7 fL (80.0-100.0); MONOCYTES 9.1 % (1.0-8.0); PLATELET COUNT 444 thou/uL (150-400); POLYS 67.7 % (36.0-66.0)
[2018-11-18 14:05] LABS: CALCIUM 9.5 mg/dL (8.5-10.1); CREATININE 1.7 mg/dL (0.6-1.0); POTASSIUM 3.6 mmol/L (3.5-5.1)
[2018-11-18 14:11] LABS: ALBUMIN 2.9 g/dL (3.4-5.0); TOTAL BILIRUBIN 0.3 mg/dL (<0.1-1.0); TOTAL PROTEIN 6.6 g/dL (6.4-8.2)
[2018-11-18 14:20] LABS: TROPONIN-I <0.06 ng/mL (<0.06)
[2018-11-18 14:29] LABS: ANISOCYTOSIS 1+; HYPOCHROMASIA 2+; MICROCYTES 1+
[2018-11-18 14:59] LABS: URINE BILIRUBIN NEGATIVE (Negative); URINE BLOOD NEGATIVE (Negative); URINE CLARITY CLEAR; URINE COLOR YELLOW; URINE GLUCOSE-RANDOM* NEGATIVE (Negative); URINE KETONES NEGATIVE (Negative); URINE LEUKOCYTES-REFLEX NEGATIVE (Negative); URINE NITRITE-REFLEX NEGATIVE (Negative); URINE PROTEIN (DIPSTICK) NEGATIVE (Negative); URINE UROBILINOGEN 0.2 E.U./dl (0.2-1.0)
[2018-11-18] MEDS ORDERED: BUPROPION HCL150 M1 PO (15:22)
[2018-11-18] MEDS ORDERED: DICLOFENAC SOD50 M1 PO (15:24)
[2018-11-18] MEDS ORDERED: DIOVAN320 MG PO (15:27)
[2018-11-18 15:41] VITALS: BP 123/36; BP 127/36; BP 131/41; BP 132/35; BP 133/35
[2018-11-18 16:44] VITALS: BP 110/37
[2018-11-18 18:12] VITALS: BP 157/50
[2018-11-18 19:15] VITALS: BP 161/46
--- NOTE | 2018-11-19 02:22 | NUR ---
ADMITTED FROM ER UNDER 'S CARE. ADMIT WITH SYMPTOMATIC ANEMIA. AXOX4. CTA BILAT, DENIES CHEST PAIN,N/V/C/D, SOB/SOA UPON ARRIVAL. RLE DRESSING PRESENT. PT REFUSED TO HAVE DRESSING TAKEN OFF AND EVALUATED. PER PT, SHE WILL NOT LET ANYONE SEE THE WOUND UNTIL SHE TALKS TO DAHLIA ROBERTSON IN AM. COMPLAINT EVALUATION SUPERVISOR CONSULTED AND WILL GIVE REPORT TO AM RN ABOUT THE REFUSAL. CHRONIC ARTHRITIC KNEE AND SHOULDER PAINS. CALLED AND OBTAINED ORDER TO RESTART HOME MEDS TYLENOL AND TRAMADOL. GI CONSULTED AND PT NOW NPO FOR GI WORK UP IN AM. URINTATED IN . FALL PRECAUTION IN PLACE. NO S/S ACTIVE BLEEDING NOTED OR REPORTED AT THIS TIME. NO S/S ACUTE DISTRESS NOTED OR REPORTED AT THIS TIME. WILL CONT TO MONITOR FOR ANY CHANGES IN CONDITION.
[2018-11-19 04:02] VITALS: BP 151/45
[2018-11-19 05:10] LABS: HEMATOCRIT 20.6 % (37.0-47.0); HEMOGLOBIN 6.7 gm/dL (12.0-15.0)
[2018-11-19 05:54] LABS: % SATURATION 13 % (20-39); IRON 39 ug/dL (50-170); TIBC 311 ug/dL (250-450)
[2018-11-19 06:31] VITALS: BP 139/41; BP 153/43
[2018-11-19 07:32] LABS: FOLIC ACID 61.5 ng/mL (8.6-58.9)
[2018-11-19 07:42] VITALS: BP 138/42
--- NOTE | 2018-11-19 08:57 | EKG ---
[address] [place] [address] ELECTROCARDIOGRAM REPORT Name: THIAGO SMITH Room #: 463-P ADM IN M.R.#: [id number] ������������������ Admission: 11/18/18 ������������������ Attend Phys: Durga Brambila MD Discharge: ������������������ Date of : 40 Report #: [id number] ����������������������������������������������������������������� [id number] THIS REPORT FOR: //name// [facility] ED Test Date: 2018-11-18 Test Time: 13:48:01 Pat Name: THIAGO SMITH Department: Room: 463 Gender: F [employer]icated Local [employer]: [facility] : 1940 Requested By: Luciano Burns Order Number: [id number] MD: Gus Linton Measurements Intervals [place] Rate: 75 P: 75 WI: 196 QRS: 32 QRSD: 102 T: 29 QT: 412 QTc: 461 Interpretive Statements Sinus rhythm Nonspecific ST segment abnormality Compared to ECG 03/21/2018 00:19:38 ST segment abnormality is now present Electronically Signed On 11-19-2018 8:57:34 CDT by Gus Linton [email or web address] ��������������������������������������������� <ELECTRONICALLY SIGNED> ���������������������������������������� By: Gus Linton MD, [facility] ��������������������������������������������� 11/19/18 0857 [id number] Gus Linton MD, [facility] /EPI
[2018-11-19 12:40] LABS: HEMATOCRIT 29.4 % (37.0-47.0)
[2018-11-19 12:41] LABS: HEMOGLOBIN 9.5 gm/dL (12.0-15.0)
--- NOTE | 2018-11-19 16:26 | NUR ---
PT ADMITTED RELATED TO SYMPTOMATIC ANEMIA. CM REVIEWED CHART AND SPOKE WITH CARE TEAM. CM MET WITH PT AT BEDSIDE THIS DAY. PT IS A&O X4. CM ROLE INTRODUCED. PT INDICATED SHE LIVES IN A HOUSE WITH HER BOYFRIEND. PT INDICATED THERE ARE 2 STEPS WITH BILATERAL HANDRAILS AND NO STEPS INSIDE. PT INDICATED SHE HAS ALL NEEDS ON 1 LEVEL UPON ENTRY. PT INDICATED SHE HAD USED A 4WW, FWW, SHOWER CHAIR, AMD WHEELCHAIR FOR HOME USE. PT INDICATED SHE IS ON SERVICE WITH [facility] AND SHE WOULD LIKE TO USE THEM AGAIN UPON DC. CM TO FOLLOW INDICATED WITH DC PLANNING.
--- NOTE | 2018-11-19 17:43 | NUR ---
WOUND CONSULT: PT. WAS SEEN TODAY BY DR. MONROE AND MYSELF. PT. IS WELL KNOWN TO THE WOUND CARE TEAM. PT. HAS A CHRONIC ULCER TO HER RIGHT LOWER EXTREMITY. PT. REPORTS THAT THIS WOUND IS VERY TENDER TO THE TOUCH AT THIS TIME. RECOMMENDATIONS: PURACOL AG TO THE WOUND BED, XEROFORM, ABD, COMPLETE CARES DAILY AND PRN. PT. AND STAFF NURSE WERE INSTRUCTED ON PLAN OF CARE.
--- NOTE | 2018-11-19 18:50 | NUR ---
RECEIVED PATIENT AWAKE ON BED, ON NOTHING PER [place]-ADVISED PATIENT. FOR ENDOSCOPY TODAY, A/W SCHEDULE AND PATIENT ASSESSED BY ENDOSCOPY STAFF, CONSENT SIGNED. WITH IV AT RIGHT AC, ONGOING BLOOD TRANSFUSION 2ND UNIT OF BLOOD STARTED BY BOTTLE SELECTOR AT 6AM. ASSISTED PATIENT IN USING BED COMMODE, ON STAND BY ASSIST SHE HAS PAIN AT LEFT SHOULDER AND LEFT LEG. PATIENT HAS LEG DRESSING ON HER RIGHT LEG, SHE REFUSES TO HAVE IT ASSESSED OR OPENED, ONLY BY HER DOCTOR, SENIOR STAFF INFORMED ABOUT CONSULT, WOUND MANAGEMENT ALREADY AWARE WILL SEE PATIENT LATER. A/W STOOL SAMPLE. BLOOD FINISHED, V/S DONE AT 10:35AM, POST BLOOD TRANSFUSION PROTOCOL OBSERVED-FORMS SIGNED, LINE FLUSHED, H&H REQUESTED AT 11:40AM.
--- NOTE | 2018-11-19 19:38 | NUR ---
DAY SHIFT NURSING NOTES ADDENDUM WITH OXYGEN AT 2LPM VIA NASAL CANNULA NEEDED. PATIENT WENT DOWN FOR ENDOSCOPY, CAME BACK AT AROUND 3PM. V/S TAKEN AND RECORDED; NEGATIVE SOURCE OF BLEEDING, HB RESULT CAME BACK WITH 9.5 HANDED OVER BY POST-OP STAFF. PATIENT ABLE TO HAVE LATE LUNCH, NO N/V NOTED. WOUND CARE MANAGEMENT CAME TO SEE PATIENT AND CHANGED DRESSING, UNABLE TO BE WITH THEM, SEE THE WOUND AND TAKE PHOTO I WAS ASSISTING ANOTHER PATIENT. PATIENT REFUSED TO HAVE PHOTO OF HER RIGHT LEG PHOTO TAKEN THIS AM . ON FALLS PROTOCOL, ABLE TO USE BC WITH A01. OPENED BOWELS TODAY PRE-DINNER TIME, SAMPLE SENT TO LABORATORY. PATIENT ORDERED TO HAVE CT SCAN OF ABDOMEN W AND W/O PELVIS WITH CONTRAST, CT SCAN CALLED UP AND SAID THAT PROCEDURE CANT BE DONE, CREATININE IS 1.7- DR LONG INFORMED, TO DO CT SCAN OF ABDOMEN W/PELVIS W/O CONTRAST INSTEAD- MODIFIED ORDER. CT SCAN DONE TODAY. PATIENT VISITED BY RELATIVE TODAY. DID NOT ASKED PAIN MEDS, OFFERED SEVERAL TIMES. WITH EDEMA ON VISIBLE PART OF RIGHT FOOT BUT REFUSED TO HAVE DRESSING TAKEN OFF, OFFERED WEDGE BUT SAID THAT SHE WILL JUST ASK HER SON TO BRING HER OWN FROM HOME.
[2018-11-19 20:35] VITALS: BP 144/47
[2018-11-20 04:39] VITALS: BP 145/58
[2018-11-20 05:43] LABS: HEMATOCRIT 25.1 % (37.0-47.0); HEMOGLOBIN 8.1 gm/dL (12.0-15.0)
--- NOTE | 2018-11-20 06:06 | NUR ---
PROGRESS PT A/O X 4 , RATES PAIN A 4 TO 6, TAKING TRAMADOL AND TYLENOL WITH EFFECT. ABLE TO BEAR WEIGHT AND PIVOT TO BSC, VOIDING QS, HAD A BM 11/19 WITHOUT DIFFICULTY.ENDOSCOPY PERFORMED YESTERDAY, NOTHING SIGNNIFCANT DIAGNOSED. HAVING DIFFICULTY USING URINAL SO CONDOM CATHETER APPLIED WORKING WELL.
[2018-11-20 07:14] VITALS: BP 147/43
[2018-11-20 08:57] LABS: CREATININE 0.9 mg/dL (0.6-1.0)
[2018-11-20 11:24] VITALS: BP 147/43
[2018-11-20 14:47] VITALS: BP 143/46
--- NOTE | 2018-11-20 15:27 | NUR ---
WOUND FOLLOW UP: PT. WAS SEEN TODAY BY DR. MONROE AND MYSELF. PT. WOUND HAS SHOWN SIGNS OF CLINICAL IMPROVEMENT SINCE YESTERDAY. RECOMMENDATIONS: CONTINUE WITH CURRENT PLAN OF CARE. PT. AND STAFF NURSE WERE INSTRUCTED ON PLAN OF CARE.
--- NOTE | 2018-11-20 16:38 | NUR ---
DISCHARGE PLANNING. DISCHARGE IS PLANNED FOR TOMORROW. HOME HEALTH SERVICES RECOMMENDED AT DISCHARGE. PATIENT REQUESTS REFERRAL FAXED TO [facility]. CALL PLACED TO [facility] INTAKE LIAISON, TO NOTIFY OF REFERRAL AND PATIENTS HH NEEDS. REFERRAL FAXED TO [facility] TO FACILITATE HH NEEDS ONCE PHYSICIAN ORDERS OBTAINED. [facility] INTAKE CONTACT NUMBER FAX SHOULD PATIENT DISCHARGE OVER WEEKEND PLEASE FAX COMPLETED PHYSICIAN ORDERS TO [facility] INTAKE AND CONTACT [place] TO NOTIFY OF PATIENTS DC. THANK YOU.
[2018-11-20 16:39] VITALS: BP 143/46
--- NOTE | 2018-11-20 16:41 | NUR ---
CARE TEAM INDICATED PT WILL LIKLELY BE ABLE TO DISCHARGE HOME WITH [facility] TOMORROW Friday11/21/18. PHONE FAX: .
--- NOTE | 2018-11-20 17:01 | NUR ---
Received awake on bed. With oxygen at 2lpm via nasal cannula. Patient on falls risk, bed alarm on. Assisted in using bedside commode. With Saline lock at Right AC. With dressing at Right leg- still refused to have dressing change and have photo taken- Patient mentioned that doctor will see her today and only allows them to change dressing. Complained of pain at both shoulders- As needed pain killers given as prescribed pain decresed from 7 to 4 (1-no pain, 10 highest). Seen by Dr. Brambila today, ordered to have Chest CT scan with contrast- CT scan called that patient's Creatinine is 1.7(11/18/18). Dr Brambila asked if to redraw blood- agreed. Patient had early AM extraction so lab staff run BUN and Creatinine to that sample. Results came back as Creatinine 0.9- CT scan staff informed. Patient had CT scan of chest with contrast today. For pulmo consult as ordered by Dr Brambila- seen today. For OT/PT as well- seen today. Patient asked to talk to clinical case manager- seen by Caitie today. She also mentioned that she has been taking a lot of medications at home and is only on Pantoprazole, Citalopram and pain medications since admission- Dr Brambila informed thru SMS and said he'll look into it. H pylori stool sample sent to lab this afternoon. Dressing at Right foot changed by wound management team today. Advised patient to keep foot elevated- prefers sitting down on side of bed and hanging her feet. [employer] called today.
[2018-11-20 19:38] VITALS: BP 146/56
--- NOTE | 2018-11-21 02:15 | NUR ---
ASSUMED CARE OF THIS PT ON 11/21/18 AT 0100HRS. PATIENT IS AOX4 UPON ASSESSMENT. COMPLAINING ABOUNT NOT BEING COMFORTABLE. NO PAIN MEDICATION AVAILABLE FOR HER AT THIS TIME. PATIENT IS BEING TRANSFERRED TO . POSSIBLE DISCHARGE TOMORROW.
--- NOTE | 2018-11-21 03:01 | NUR ---
PROGRESS PT A/O X4 UP WITH SBA, RATING RIGHT LEG PAIN AN 8 OUT OF 0/10. TRAMADOL AND TYLENOL GIVEN WITH SOME EFFECT. PT VOIDS QS IN BSC, TAKING ADEQUATE PO FOODS AND FLUIDS. PLANS TO DC HOME TOMORROW.
--- NOTE | 2018-11-21 04:00 | NUR ---
ASSUMED PT CARE 0200, PT TRANSFER FROM 4W. PT ALERT AND ORIENTED. REASSESSMENT COMPLETE. VSS. 2L O2 VIA NC. PT REPORTS PAIN. PT DENIES N/V, SOB. IV DRESSING C/D/I, NO SIGNS OF INFITLRATION. PT CALL LIGHT AND PERSONAL ITEMS IN REACH. WILL CONTINUE POC UNTIL EOS.
[2018-11-21 04:06] VITALS: BP 137/40
[2018-11-21 08:21] VITALS: BP 152/44
[2018-11-21 13:12] VITALS: BP 143/46
[2018-11-21 13:38] VITALS: BP 143/46
--- NOTE | 2018-11-21 14:19 | NUR ---
DC INSTRUCTIONS GIVEN TO PT. PT VERBALIZED UNDERSTANDING. PT DCD IN STABLE CONDITION.
--- NOTE | 2018-11-21 15:49 | NUR ---
PT REFUSED TO HAVE WOUND PICTURE TAKEN.
--- NOTE | 2018-11-21 17:21 | HC ---
[facility] [place] [address] CONSULTATION Name: THIAGO SMITH Room #: 422-P ADM IN M.R.#: [id number] Admission: 11/18/18 ������������������ Attend Phys: Durga Brambila MD Discharge: ������������������ Date of : 40 Report #: [id number] THIS REPORT FOR: //name// CC: Durga Brambila REFERRING PHYSICIAN: Dr. Durga Brambila. REASON FOR REFERRAL: COPD. HISTORY OF PRESENT ILLNESS: The patient is a 78-year-old white female who presents to the ED with generalized weakness and tremors. She was found to be anemic. A pulmonary consultation was requested regarding that she has history of COPD. The patient normally followed in the pulmonary office by Dr. Killian in the past, but she has not been seen in the office more recently. The patient has known COPD. Severity is unknown. She has been feeling weak with mild tremors for the last few months. With worsening symptoms, she presented to the ED. She also notes unintended weight loss of 35 pounds. The patient gives a history of an anemia in the past. She was transfused about few months ago. Otherwise, she denies any fever, night sweats or chills, chest pain or productive cough. PAST MEDICAL HISTORY: Notable for COPD, nocturnal hypoxia on 2.5 liters of O2, had been taking Dulera in the past; peripheral artery disease with multiple stents in the lower extremities; coronary artery disease with myocardial infarction in 2012; osteoarthritis; diffuse chronic kidney disease; history of C. difficile colitis; iron deficiency anemia as mentioned above, requiring transfusions in 2017 and again in 2018; history of heart failure; history of sleep apnea, not on CPAP; nocturnal hypoxia as mentioned above on 2.5 liters of O2; history of nephrolithiasis; depression; gastroesophageal reflux disease; hypertension. PAST SURGICAL HISTORY: As mentioned above including prior back surgery in 2010, hysterectomy, urethral sling surgery, adenoidectomy. ALLERGIES: TO SULINDAC, REACTIONS NOT KNOWN. VANCOMYCIN CAUSES A RASH. HOME MEDICATIONS: Reviewed. This include Plavix, Bystolic, Celexa, Stiolto, Caltrate, bupropion, diclofenac, Diovan, Protonix, nebulized DuoNeb, Centrum, Lipitor, Ultram, Estrace, magnesium supplements, aspirin, Tylenol p.r.n. FAMILY HISTORY: Noncontributory. [address] [address] CONSULTATION Name: THIAGO SMITH Room #: 422-P [facility] IN M.R.#: [id number] Admission: 11/18/18 ������������������ Attend Phys: Durga Brambila MD Discharge: ������������������ Date of : 40 Report #: [id number] SOCIAL HISTORY: The patient has smoked, but quit more than 10 years ago. She drinks occasional alcohol. REVIEW OF SYSTEMS: As mentioned above, otherwise 10-point system review negative. PHYSICAL EXAMINATION: GENERAL: She is awake, alert, in no distress. VITAL SIGNS: Temperature is 97 degrees Fahrenheit, pulse is 60, respiratory rate is 18, blood pressure 147/43 mmHg, saturations 100%. HEENT: Normocephalic, atraumatic. NECK: Supple, without lymphadenopathy or thyromegaly. CHEST: Breath sounds are good bilaterally without any rales or wheezes. CARDIOVASCULAR: Normal S1, S2. There is no murmur or gallop. There is no JVD, no carotid bruit. Pulses are 2+/4+ bilaterally. ABDOMEN: Soft, nontender, no organomegaly or masses felt. GENITOURINARY: Deferred. RECTAL: Deferred. EXTREMITIES: There is no edema, cyanosis or clubbing. LABORATORY DATA: Chest x-ray is unremarkable. It is clear. Without infiltrates. CT abdomen and pelvis was grossly unremarkable. There is colonic diverticulosis without evidence of diverticulitis. CT chest shows diffuse emphysematous changes. Admitting hemoglobin of 6, currently is 8.1; MCV is 81; MCH is 25; platelets are normal. Albumin 2.9. IMPRESSION: 1. Chronic obstructive pulmonary disease, severity unknown, clinically stable, she is on Stiolto along with DuoNeb p.r.n. 2. History of iron deficiency anemia, recurrent, currently being evaluated. 3. Moderate protein-calorie malnutrition, albumin 2.9. 4. History of small bowel and gastric arteriovenous malformations, likely source of recurrent bleed, previously cauterized in 2017. 5. Unexplained weight loss, approximately 30 pounds. 6. Coronary artery disease, status post stent. 7. Peripheral vascular disease, status post multiple lower extremity stents, renal artery stent. 8. Gastroesophageal reflux disease. 9. Hypertension. RECOMMENDATION: The patient is relatively stable from pulmonary standpoint. Continue bronchodilators. The patient is in need of a nebulizer. This will be ordered to the outpatient setting. DVT and GI prophylaxis recommended. SCDs recommended given gastrointestinal bleed. [facility] [address] [place] [address] CONSULTATION Name: THIAGO SMITH Room #: 422-P ADM IN MMatthewR.#: [id number] Admission: 11/18/18 ������������������ Attend Phys: Durga Brambila MD Discharge: ������������������ Date of : 40 Report #: [id number] Thank you for this consultation. ��������������������������������������������� <ELECTRONICALLY SIGNED> ���������������������������������������� By: Dieter Mac MD ��������������������������������������������� 11/21/18 1721 1845 1510 Dieter Mac MD /nt
--- NOTE | 2018-11-23 07:35 | HC ---
[facility] [place] [address] CONSULTATION Name: THIAGO SMITH Room #: 422-P [facility] IN M.R.#: [id number] Admission: 11/18/18 ������������������ Attend Phys: Durga Brambila MD Discharge: 11/21/18 ������������������ Date of : 40 Report #: [id number] THIS REPORT FOR: //name// CC: Durga Brambila DATE OF SERVICE: 11/19/2018 CHIEF COMPLAINT: Ulceration to the right lower leg. HISTORY OF PRESENT ILLNESS: This is a 78-year-old female patient with whom I am familiar from prior evaluation. She has been admitted to the hospital with generalized weakness and tremors. She was found to have significant anemia and she has been losing weight. I have been asked to see her with regard to a chronic ulceration in her right leg. There may be a component of pyoderma gangrenosum present. PAST MEDICAL HISTORY: Positive for history of previous cerebrovascular accident, acute kidney injury, coronary artery disease, previous head injury with scalp hematoma, iron deficiency anemia, possible spider bite to the right leg that has been very slow to heal and history of gastroesophageal reflux. FAMILY HISTORY: Positive for history of a cerebral aneurysm. SOCIAL HISTORY: Positive for cigarettes, 2 packs per day for 50 years. The patient will drink 1-2 glasses of wine on special occasions. ALLERGIES: PATIENT HAS ALLERGIES TO SULINDAC, VANCOMYCIN, FLUTICASONE AND SALMETEROL. REVIEW OF SYSTEMS: CONSTITUTIONAL: The patient denies fever, chills or weight loss. NEUROLOGICAL: The patient denies new focal weakness, numbness or tingling. EYES: The patient denies visual changes, redness or drainage. ENT: The patient denies earache, nasal drainage or sore throat. CARDIOVASCULAR: The patient denies chest pain, palpitation or diaphoresis. PULMONARY: The patient denies cough or shortness of breath. GASTROINTESTINAL: The patient denies nausea, vomiting diarrhea or abdominal pain. ORTHOPEDIC: The patient does have a chronic ulceration involving her right lower leg. Other systems in a 14-point review of systems are negative at this time. PHYSICAL EXAMINATION: VITAL SIGNS: At this time include temperature 36.3, pulse 62, respiratory rate 14, blood pressure 138/42. GENERAL: This is a well-developed, well-nourished female patient who appears to [address] [address] CONSULTATION Name: THIAGO SMITH Room #: 422-P [facility] IN M.R.#: [id number] Admission: 11/18/18 ������������������ Attend Phys: Durga Brambila MD Discharge: 11/21/18 ������������������ Date of : 40 Report #: [id number] be in no distress. HEENT: Head normocephalic. Nose and throat are clear. NECK: Supple. LUNGS: Clear. ABDOMEN: Soft. Bowel sounds present. EXTREMITIES: Demonstrate diminished, but palpable distal pulses. She has a circular ulceration on the right lateral lower leg. It is mildly tender. There is a mixture of granulation and fibrin and is not overtly infected. CLINICAL IMPRESSION: Chronic ulceration to the right lateral lower leg, possibly spider bite in origin. Differential diagnosis would include pyoderma gangrenosum. RECOMMENDATIONS: At this point in time, we will recommend topical Fibracol and Xeroform gauze dressing with ABDs and then light compression with Chris wrap. We will apply no tape to the skin to avoid any further trauma or tearing of the skin. The patient is agreeable to current plan. We will recommend elevation of her leg when possible. I appreciate being asked to see her in consultation. ��������������������������������������������� <ELECTRONICALLY SIGNED> ���������������������������������������� By: Deyvi Hughes MD ��������������������������������������������� 11/23/18 0735 1727 1325 Deyvi Hughes MD /nt
--- NOTE | 2018-11-24 20:57 | P ---
[facility] [place] [address] PROCEDURE REPORT Name: THIAGO SMITH Room #: 422-P [facility] IN M.R.#: [id number] Admission: 11/18/18 ������������������ Attend Phys: Durga Brambila MD Discharge: 11/21/18 ������������������ Date of : 40 Report #: [id number] THIS REPORT FOR: //name// CC: Durga Brambila MD PROCEDURE: Diagnostic EGD. She is a patient of Dr. Durga Brambila. INDICATION FOR PROCEDURE: This patient has a severe iron deficiency anemia with a hemoglobin of 6. She has had severe mid back pain between her scapula. She has had an unintentional 30-pound weight loss due to the development of anorexia and the etiology of all these symptoms is unclear. 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 Nikhil Glover. We thought we would start with an EGD to try to figure this anemia out further. Informed consent for this procedure was obtained prior to the administration of any medication. The risks of the procedure, which include bleeding, perforation, infection, complications of sedation and the possibility I could miss something have been explained to the patient. She has indicated her consent by signing. DESCRIPTION OF PROCEDURE: Propofol was slowly titrated before and during this procedure for the patient comfort by the Anesthesia service. The Olympus upper videoscope was introduced through the upper esophageal sphincter and advanced under direct visualization to the descending duodenum, third portion. Findings are noted on withdrawal of the scope. The visualized portions of the second portion of the duodenum and duodenal bulb appeared normal. Pylorus, normal mucosa. Antrum, normal mucosa. Body, normal mucosa. Cardia and fundus, normal mucosa. Retroflex view did not reveal any abnormalities. Scope was withdrawn into the esophagus. The Z-line is appropriately located at the top of the gastric folds and appears normal. The esophageal mucosa appears normal throughout its entirety. The scope was withdrawn. The patient went to the recovery room in stable condition. She tolerated the procedure well. IMPRESSION: Normal EGD to the third portion of the duodenum. The etiology of the patient's weight loss, anorexia and back pain are not clear from this exam. RECOMMENDATIONS: I would recommend colonoscopy as the next gastrointestinal test as well as CT scan of the chest, abdomen and pelvis to evaluate the pancreas and liver further and to evaluate for the etiology of the mid back pain as well as the weight loss. [address] [address] PROCEDURE REPORT Name: THIAGO SMITH Room #: 422-P [facility] IN [facility]#: [id number] Admission: 11/18/18 ������������������ Attend Phys: Durga Brambila MD Discharge: 11/21/18 ������������������ Date of : 40 Report #: [id number] Thank you very much once again for allowing me to participate in her care. ��������������������������������������������� <ELECTRONICALLY SIGNED> ���������������������������������������� By: Allie Joya DO ��������������������������������������������� 11/24/18 8818 1527 0648 Allie Joya DO /nt
== END 2018-11-21 18:00 | disposition home health service (06) | DRG 377 ==
LOC: ER 13:31 → 4W 15:12 → EROBS 15:12 → 4W 18:20 → 4E 11-21 02:47
PROVIDERS: Emergency Medicine; Internal Medicine Gastroenterology; ADMIT Family Medicine
PROC: 0DJ08ZZ Inspection of Upper Intestinal Tract, Via Natural or Artificial Opening Endoscopic (ICD-10-PCS; principal; 2018-11-18)
PROC: 30233N1 Transfusion of Nonautologous Red Blood Cells into Peripheral Vein, Percutaneous Approach (ICD-10-PCS; principal; 2018-11-18)
DX: K92.2 Gastrointestinal hemorrhage, unspecified (principal); E43 Unspecified severe protein-calorie malnutrition; L97.919 Non-pressure chronic ulcer of unspecified part of right lower leg with unspecified severity; N17.9 Acute kidney failure, unspecified; I13.0 Hypertensive heart and chronic kidney disease with heart failure and stage 1 through stage 4 chronic kidney disease, or unspecified chronic kidney disease; D50.9 Iron deficiency anemia, unspecified; N18.9 Chronic kidney disease, unspecified; J44.9 Chronic obstructive pulmonary disease, unspecified; I50.9 Heart failure, unspecified; F32.9 Major depressive disorder, single episode, unspecified; I25.10 Atherosclerotic heart disease of native coronary artery without angina pectoris; I73.9 Peripheral vascular disease, unspecified; D72.819 Decreased white blood cell count, unspecified; M19.011 Primary osteoarthritis, right shoulder; K21.9 Gastro-esophageal reflux disease without esophagitis; Z95.820 Peripheral vascular angioplasty status with implants and grafts; Z88.1 Allergy status to other antibiotic agents; Z88.8 Allergy status to other drugs, medicaments and biological substances; Z86.73 Personal history of transient ischemic attack (TIA), and cerebral infarction without residual deficits; Z82.49 Family history of ischemic heart disease and other diseases of the circulatory system; I25.2 Old myocardial infarction; Z87.442 Personal history of urinary calculi; Z95.5 Presence of coronary angioplasty implant and graft; Z90.710 Acquired absence of both cervix and uterus; Z68.22 Body mass index [BMI] 22.0-22.9, adult; Z79.82 Long term (current) use of aspirin; Z79.899 Other long term (current) drug therapy; Z87.891 Personal history of nicotine dependence; Z82.3 Family history of stroke
CPT/HCPCS: 10040; 62110; 62900; 70005

== ENCOUNTER 2018-11-24 16:56 | Emergency (ER) | payer OTHER, BC ==
[~2018-11-24] VITALS: Ht 152.4 cm; Wt 53.1 kg
[~2018-11-24 16:56] MED LIST changes: +BUPROPION HCL150 M1 PO; +DICLOFENAC SOD50 M1 PO; +DIOVAN320 MG PO
[2018-11-24 17:27] LABS: URINE BILIRUBIN NEGATIVE (Negative); URINE BLOOD NEGATIVE (Negative); URINE CLARITY CLEAR; URINE COLOR YELLOW; URINE GLUCOSE-RANDOM* NEGATIVE (Negative); URINE KETONES NEGATIVE (Negative); URINE NITRITE-REFLEX NEGATIVE (Negative); URINE PROTEIN (DIPSTICK) NEGATIVE (Negative); URINE SPECIFIC GRAVITY <= 1.005 (1.005-1.035); URINE UROBILINOGEN 0.2 E.U./dl (0.2-1.0)
[2018-11-24 17:29] LABS: URINE LEUKOCYTES-REFLEX 2+ (Negative)
[2018-11-24 17:30] LABS: ABSOLUTE NEUTROPHILS 5.5 thou/uL (1.4-8.2); BASOPHILS 1.1 % (0.0-2.0); EOSINOPHILS 2.6 % (0.0-3.0); HEMATOCRIT 25.1 % (37.0-47.0); HEMOGLOBIN 8.2 gm/dL (12.0-15.0); LYMPHOCYTES 7.6 % (24.0-44.0); MCHC 32.7 g/dL (28.0-37.0); MCV 82.6 fL (80.0-100.0); MONOCYTES 7.9 % (1.0-8.0); PLATELET COUNT 355 thou/uL (150-400); POLYS 80.8 % (36.0-66.0); RBC 3.03 mil/uL (4.20-5.00); RDW 17.6 % (10.5-14.5); WBC 6.8 thou/uL (4.0-11.0)
[2018-11-24 17:32] LABS: CALCIUM 9.4 mg/dL (8.5-10.1); CREATININE 1.5 mg/dL (0.6-1.0); POTASSIUM 3.9 mmol/L (3.5-5.1)
[2018-11-24 17:38] LABS: TOTAL BILIRUBIN 0.3 mg/dL (<0.1-1.0); TOTAL PROTEIN 6.5 g/dL (6.4-8.2)
[2018-11-24 17:48] LABS: BACTERIA-REFLEX None Seen /HPF (None Seen); CRYSTALS None Seen /LPF (None Seen); HYALINE CASTS 0-3 Few /LPF (None Seen); SQUAMOUS 0-3 Few /LPF (0-3); URINE RBC 3-10 Few /HPF (0-2); WBC CLUMPS Few (None Seen)
[2018-11-24 18:00] VITALS: BP 142/46
[2018-11-24] MEDS ORDERED: LASIX 40 MG TAB40 M2 PO (18:05)
[2018-11-24] MEDS ORDERED: KEFLEX500 M1 PO (18:33)
== END 2018-11-24 19:01 | disposition home or self-care (01) ==
LOC: ER 16:56
PROVIDERS: Physician Assistant
DX: N39.0 Urinary tract infection, site not specified (principal); N17.9 Acute kidney failure, unspecified; D64.9 Anemia, unspecified; F17.210 Nicotine dependence, cigarettes, uncomplicated; M19.90 Unspecified osteoarthritis, unspecified site; I13.0 Hypertensive heart and chronic kidney disease with heart failure and stage 1 through stage 4 chronic kidney disease, or unspecified chronic kidney disease; N18.9 Chronic kidney disease, unspecified; I50.9 Heart failure, unspecified; J44.9 Chronic obstructive pulmonary disease, unspecified; G47.30 Sleep apnea, unspecified; F32.9 Major depressive disorder, single episode, unspecified; K21.9 Gastro-esophageal reflux disease without esophagitis; Z88.8 Allergy status to other drugs, medicaments and biological substances; Z88.1 Allergy status to other antibiotic agents; Z86.2 Personal history of diseases of the blood and blood-forming organs and certain disorders involving the immune mechanism; Z90.5 Acquired absence of kidney; Z95.5 Presence of coronary angioplasty implant and graft; Z90.710 Acquired absence of both cervix and uterus; Z98.890 Other specified postprocedural states

== ENCOUNTER → 2018-11-26 | Outpatient (CLI) | payer OTHER, BC ==
[~2018-11-26] MED LIST changes: +KEFLEX500 M1 PO; +LASIX 40 MG TAB40 M2 PO
[2018-11-26 13:28] VITALS: BP 128/46
[2018-11-26 14:35] VITALS: BP 136/42
--- NOTE | 2018-11-26 15:23 | NUR ---
IN FOR 1ST OF 5 VENOFER INFUSIONS. STATED HAS BEEN VERY WEAK AND IS UNSTEADY. USING CANE. PROVIDED MINIMAL ASSISTANCE FOR TRANSFERS WITH USE OF GAIT BELT AND CANE. INFUSED VENOFER OVER 30 MINUTES AND TOLERATED WELL. POST VITAL SIGNS STABLE. REMOVED IV AND TOOK PATIENT FOR WOUND CARE APPT VIA WC. WILL CALL TOMORROW TO LET US KNOW WHAT TIME SHE CAN COME NEXT FRIDAY.
== END ==
LOC: HYPER 11-18 07:04
DX: L97.212 Non-pressure chronic ulcer of right calf with fat layer exposed (principal); T63.301D Toxic effect of unspecified spider venom, accidental (unintentional), subsequent encounter; L03.115 Cellulitis of right lower limb; I70.203 Unspecified atherosclerosis of native arteries of extremities, bilateral legs; B95.62 Methicillin resistant Staphylococcus aureus infection as the cause of diseases classified elsewhere; R60.0 Localized edema; I50.20 Unspecified systolic (congestive) heart failure; I25.10 Atherosclerotic heart disease of native coronary artery without angina pectoris; K21.9 Gastro-esophageal reflux disease without esophagitis; M19.90 Unspecified osteoarthritis, unspecified site; Z87.891 Personal history of nicotine dependence
CPT/HCPCS: 95000

== ENCOUNTER → 2018-12-01 | Outpatient (CLI) | payer OTHER, BC ==
[2018-12-01 12:10] VITALS: BP 124/50
[2018-12-01 13:10] VITALS: BP 128/48
--- NOTE | 2018-12-01 13:41 | NUR ---
IN FOR #2 OF 5 VENOFER INFUSIONS. STATED NO SIDE EFFECTS NOTED AFTER 1ST INFUSION LAST WEEK. TOLERATED INFUSION WELL WITHOUT INCIDENT. POST VITAL SIGNS GOOD. REMOVED IV AND DISMISSED IN STABLE CONDITION.
== END ==
LOC: OPONC 02:11
DX: L03.116 Cellulitis of left lower limb (principal); E61.1 Iron deficiency; Z87.19 Personal history of other diseases of the digestive system
CPT/HCPCS: 95000

== ENCOUNTER → 2018-12-03 | Outpatient (CLI) | payer OTHER, BC ==
[2018-12-03 12:25] VITALS: BP 116/31
[2018-12-03 13:00] VITALS: BP 124/35
--- NOTE | 2018-12-03 13:15 | NUR ---
HERE FOR 3RD DOSE OF VENOFER. REPORTS TOLERATING WELL AND FEELING A BIT BETTER. GIVEN OVER 30 MINUTES WITHOUT INCIDENT, NO S/S REACTION. VSS UPON COMPLETION. DISMISSED IN STABLE CONDITION. SCHEDULED TO RETURN NEXT WEEK ON FRIDAY.
== END ==
LOC: OPONC 07:50
DX: L03.116 Cellulitis of left lower limb (principal); D50.9 Iron deficiency anemia, unspecified; Z87.19 Personal history of other diseases of the digestive system
CPT/HCPCS: 95000

== ENCOUNTER → 2018-12-08 | Outpatient (CLI) | payer OTHER, BC ==
[2018-12-08 12:35] VITALS: BP 102/40
[2018-12-08 13:30] VITALS: BP 122/50
[2018-12-08 13:38] LABS: EOSINOPHILS 1.7 % (0.0-3.0); HEMATOCRIT 25.6 % (37.0-47.0); HEMOGLOBIN 8.5 gm/dL (12.0-15.0); LYMPHOCYTES 11.8 % (24.0-44.0); MCH 28.5 pg (26.0-34.0); MCHC 33.1 g/dL (28.0-37.0); MONOCYTES 9.7 % (1.0-8.0); PLATELET COUNT 360 thou/uL (150-400); POLYS 75.8 % (36.0-66.0); RBC 2.97 mil/uL (4.20-5.00)
--- NOTE | 2018-12-08 13:53 | NUR ---
IN FOR #4 OF 5 VENOFER INFUSIONS. STATED FEELING VERY TIRED AND FEELS LIKE SLEEPING ALL THE TIME. RECEIVED ORDERS TO DO CBC AND IRON. HARJINDER BLOOD FROM PERIPHERAL IV. INFUSED VENOFER OVER 30 MINUTES AND TOLERATED WELL WITH NO ADVERSE REACTION NOTED. POST VITAL SIGNS GOOD. REMOVED IV AND DISMISSED IN STABLE CONDITION. TO RETURN FRIDAY FOR LAST INFUSION.
[2018-12-08 13:55] LABS: % SATURATION 16 % (20-39); IRON 56 ug/dL (50-170); TIBC 347 ug/dL (250-450)
[2018-12-08 14:11] LABS: ANISOCYTOSIS 1+; PLATELET ESTIMATE NORMAL
== END ==
LOC: OPONC 00:34
PROVIDERS: Family Medicine
DX: D50.9 Iron deficiency anemia, unspecified (principal); L03.116 Cellulitis of left lower limb; Z87.19 Personal history of other diseases of the digestive system
CPT/HCPCS: 95000

== ENCOUNTER → 2018-12-10 | Outpatient (CLI) | payer OTHER, BC ==
[2018-12-10 12:20] VITALS: BP 112/38
[2018-12-10 12:45] VITALS: BP 110/38
--- NOTE | 2018-12-10 13:10 | NUR ---
HERE FOR LAST DOSE OF VENOFER ( OF 5). REPORTS TOLERATING EACH ONE WELL AND WITH NO NOTED SIDE EFFECTS. TOLERATED TODAY'S DOSE OVER 30 MINUTES, VSS POST. NO CONCERNS NOTED OTHER THAN PT'S LONGSTANDING ISSUES WITH PAIN, WOUNDS, JOINT ISSUES, ETC. DISMISSED IN STABLE CONDITION.
== END ==
LOC: OPONC 00:43
DX: D50.9 Iron deficiency anemia, unspecified (principal); L03.119 Cellulitis of unspecified part of limb; Z87.19 Personal history of other diseases of the digestive system
CPT/HCPCS: 95000

== ENCOUNTER → 2018-12-14 | Outpatient (CLI) | payer OTHER, BC | LOC: HYPER 06:50 | DX: T63.301D Toxic effect of unspecified spider venom, accidental (unintentional), subsequent encounter (principal); L97.212 Non-pressure chronic ulcer of right calf with fat layer exposed; I70.203 Unspecified atherosclerosis of native arteries of extremities, bilateral legs; I50.20 Unspecified systolic (congestive) heart failure; L03.115 Cellulitis of right lower limb; B95.62 Methicillin resistant Staphylococcus aureus infection as the cause of diseases classified elsewhere; I25.10 Atherosclerotic heart disease of native coronary artery without angina pectoris; K21.9 Gastro-esophageal reflux disease without esophagitis; M19.90 Unspecified osteoarthritis, unspecified site; R60.0 Localized edema; Z87.891 Personal history of nicotine dependence ==

== ENCOUNTER → 2018-12-30 | Outpatient (CLI) | payer OTHER, BC | LOC: HYPER 06:42 | DX: L97.212 Non-pressure chronic ulcer of right calf with fat layer exposed (principal); S50.312A Abrasion of left elbow, initial encounter; T63.301D Toxic effect of unspecified spider venom, accidental (unintentional), subsequent encounter; I73.9 Peripheral vascular disease, unspecified; R60.0 Localized edema; I50.20 Unspecified systolic (congestive) heart failure; B95.62 Methicillin resistant Staphylococcus aureus infection as the cause of diseases classified elsewhere; I25.10 Atherosclerotic heart disease of native coronary artery without angina pectoris; K21.9 Gastro-esophageal reflux disease without esophagitis; M19.90 Unspecified osteoarthritis, unspecified site; Z87.891 Personal history of nicotine dependence; X58.XXXA Exposure to other specified factors, initial encounter; Y93.89 Activity, other specified; Y92.89 Other specified places as the place of occurrence of the external cause; Y99.8 Other external cause status ==

== ENCOUNTER 2019-01-13 06:42 | Inpatient (IN) | payer OTHER, BC ==
[~2019-01-13] VITALS: Ht 152.4 cm; Wt 50.7 kg
[2019-01-13 16:02] VITALS: BP 141/54
[2019-01-13 17:30] LABS: ABSOLUTE NEUTROPHILS 4.3 thou/uL (1.4-8.2); BASOPHILS 1.5 % (0.0-2.0); EOSINOPHILS 1.8 % (0.0-3.0); HEMATOCRIT 25.3 % (37.0-47.0); HEMOGLOBIN 8.3 gm/dL (12.0-15.0); LYMPHOCYTES 11.1 % (24.0-44.0); MCH 31.4 pg (26.0-34.0); MCHC 32.8 g/dL (28.0-37.0); MCV 95.6 fL (80.0-100.0); MONOCYTES 8.4 % (1.0-8.0); PLATELET COUNT 470 thou/uL (150-400); POLYS 77.2 % (36.0-66.0); RBC 2.64 mil/uL (4.20-5.00); RDW 20.7 % (10.5-14.5); WBC 5.5 thou/uL (4.0-11.0)
[2019-01-13 17:40] LABS: ALBUMIN 3.1 g/dL (3.4-5.0); CALCIUM 9.7 mg/dL (8.5-10.1); CREATININE 1.4 mg/dL (0.6-1.0); POTASSIUM 3.6 mmol/L (3.5-5.1); TOTAL BILIRUBIN 0.3 mg/dL (<0.1-1.0); TOTAL PROTEIN 7.4 g/dL (6.4-8.2)
[2019-01-13 19:35] VITALS: BP 149/44
[2019-01-14 04:05] VITALS: BP 109/37
[2019-01-14 05:35] LABS: ABSOLUTE NEUTROPHILS 4.9 thou/uL (1.4-8.2); BASOPHILS 0.9 % (0.0-2.0); EOSINOPHILS 1.8 % (0.0-3.0); HEMATOCRIT 21.5 % (37.0-47.0); HEMOGLOBIN 7.1 gm/dL (12.0-15.0); LYMPHOCYTES 9.2 % (24.0-44.0); MCH 31.3 pg (26.0-34.0); MONOCYTES 8.3 % (1.0-8.0); PLATELET COUNT 449 thou/uL (150-400); POLYS 79.8 % (36.0-66.0); RBC 2.26 mil/uL (4.20-5.00); RDW 20.4 % (10.5-14.5); WBC 6.2 thou/uL (4.0-11.0)
[2019-01-14 05:50] LABS: CALCIUM 9.1 mg/dL (8.5-10.1); CREATININE 1.6 mg/dL (0.6-1.0); MAGNESIUM 2.1 mg/dL (1.8-2.4); POTASSIUM 3.2 mmol/L (3.5-5.1)
[2019-01-14 08:24] VITALS: BP 112/40
[2019-01-14 17:56] VITALS: BP 132/58
[2019-01-14 19:35] VITALS: BP 115/43
[2019-01-15 02:35] VITALS: BP 122/36
[2019-01-15 05:31] LABS: HEMATOCRIT 22.9 % (37.0-47.0); HEMOGLOBIN 7.6 gm/dL (12.0-15.0); MCH 31.1 pg (26.0-34.0); MCV 94.4 fL (80.0-100.0); RBC 2.43 mil/uL (4.20-5.00); RDW 20.4 % (10.5-14.5); WBC 4.3 thou/uL (4.0-11.0)
[2019-01-15 05:49] LABS: CALCIUM 8.6 mg/dL (8.5-10.1); CREATININE 1.4 mg/dL (0.6-1.0); MAGNESIUM 1.9 mg/dL (1.8-2.4); POTASSIUM 3.3 mmol/L (3.5-5.1)
[2019-01-15 07:20] VITALS: BP 126/88
--- NOTE | 2019-01-15 10:06 | HC ---
[facility] [place] [place] [address] CONSULTATION Name: THIAGO SMITH Room #: 420-P ADM IN M.R.#: [id number] Admission: 01/13/19 ������������������ Attend Phys: Kashif Avendaño MD Discharge: ������������������ Date of : 40 Report #: [id number] THIS REPORT FOR: //name// CC: Kashif Avendaño Durga Deleon DATE OF SERVICE: 01/14/2019 INFECTIOUS DISEASE CONSULTATION ATTENDING PHYSICIAN: Kashif Avendaño MD REASON FOR CONSULTATION: Antibiotic management. HISTORY OF PRESENT ILLNESS: A 78-year-old white woman admitted [facility] with nonhealing ulcer, right leg -- cellulitis. The patient had been fighting this problem for some 3 years. The problem started with spider bite to the right leg. The patient is having significant pain on the right leg. PAST MEDICAL HISTORY: Peripheral vascular disease, hypertension, obstructive sleep apnea, COPD, previous C. difficile colitis, anemia of chronic disease, stasis dermatitis legs, previous urinary retention and urinary tract infection. DRUG ALLERGIES: SULINDAC, VANCOMYCIN, , SALMETEROL. MEDICATIONS: The patient is currently on treatment with lactobacillus acidophilus 1 capsule daily, tramadol 50 mg every 6 hours if needed, acetaminophen 500 mg every 6 hours p.r.n., Zosyn 3.375 grams IV every 12 hours, polyethylene glycol 17 grams daily, nitroglycerin sublingual p.r.n., ondansetron 4 mg IV q. 4h p.r.n. SOCIAL HISTORY: See H and P, old records. FAMILY HISTORY: See H and P, old records. REVIEW OF SYSTEMS: Pain, right leg. PHYSICAL EXAMINATION: GENERAL: Well-developed, chronically ill-appearing woman. VITAL SIGNS: Temperature 97.6, pulse 62, respirations 18, BP 112/40, height 5 feet, weight 111.7 pounds. HEENMT: Missing teeth. Pupils reactive. Mouth: No thrush, hairy leukoplakia. NECK: Supple. BREASTS: Deferred. LUNGS: Clear to auscultation. [facility] [address] [place] [address] CONSULTATION Name: THIAGO SMITH Room #: 420-P [facility] IN .R.#: [id number] Admission: 01/13/19 ������������������ Attend Phys: Kashif Avendaño MD Discharge: ������������������ Date of : 40 Report #: [id number] HEART: S1, S2. No gallop or murmur. ABDOMEN: Soft, no masses or megaly. EXTREMITIES: Reveal stasis dermatitis both legs and ulceration on the lateral aspect of the distal right leg with some surrounding erythema and cellulitic changes. Peripheral pulses not palpable. LABORATORY DATA: Sodium 143, potassium 3.2, BUN 53, creatinine 1.6, albumin 3.1 g/dL. WBC 6.2, hemoglobin 7.1, platelets 449,000. Sedimentation rate 123 mm per hour. Previous wound culture reveal Enterococcus faecalis, Pseudomonas aeruginosa and Staphylococcus aureus. X-ray of the right foot, no acute osseous abnormalities on the feet. Tibia and fibular right-sided, no acute fracture or dislocation and bilateral knee osteoarthritis. ASSESSMENT: 1. Chronic ulceration, right leg with cellulitis. 2. Chronic kidney disease. 3. Anemia of chronic disease. 4. Previous history of Clostridium difficile colitis. 5. Peripheral vascular disease. 6. Chronic obstructive pulmonary disease. SUGGESTIONS: Recommend culture right leg wound. Continue treatment with Zosyn 3.375 grams IV every 8 hours. Elevation of the leg. Improve nutrition. Dr. Hugehs, thank you for requesting my suggestions in the care of your patient. ��������������������������������������������� <ELECTRONICALLY SIGNED> ���������������������������������������� By: Evan Crenshaw MD ��������������������������������������������� 01/15/19 1006 1039 1620 Evan Crenshaw MD /nt
--- NOTE | 2019-01-15 11:08 | HC ---
[facility] [place] [address] CONSULTATION Name: THIAGO SMITH Room #: 420-P ADM IN .R.#: [id number] Admission: 01/13/19 ������������������ Attend Phys: Kashif Avendaño MD Discharge: ������������������ Date of : 40 Report #: [id number] THIS REPORT FOR: //name// CC: Kashif Deleon DATE OF SERVICE: 01/14/2019 CHIEF COMPLAINT: Ulcerations bilateral lower extremities. HISTORY OF PRESENT ILLNESS: This is a 78-year-old female patient who lives at home normally. We have seen her multiple times for lower extremity ulcerations. She has had recurring episodes of persisting ulceration and cellulitis and multiple antibiotic courses. She was felt to have increasing pain and drainage. She is admitted for intravenous antibiotic therapy as well as debridement and placement of a skin substitute. PAST MEDICAL HISTORY: Positive for history of cerebrovascular accident, coronary artery disease, COPD, congestive heart failure, hypertension, history of small brain aneurysm found in 2016, iron deficiency anemia, possible previous spider bite causing the right leg ulceration. ALLERGIES: TO SULINDAC, SALMETEROL, VANCOMYCIN, AND FLUTICASONE. CURRENT MEDICATIONS: Include Tylenol, acidophilus, Nitrostat, ondansetron, Zosyn, polyethylene glycol, tramadol, Lasix, Bystolic, pantoprazole, tramadol, valsartan. FAMILY HISTORY: Noncontributory. REVIEW OF SYSTEMS: CONSTITUTIONAL: The patient denies fever, chills or weight loss. NEUROLOGICAL: The patient denies focal weakness, numbness or tingling. EYES: The patient denies visual changes, redness or drainage. ENT: The patient denies earache, nasal drainage or sore throat. CARDIOVASCULAR: The patient denies chest pain, palpitations or diaphoresis. PULMONARY: The patient denies cough or shortness of breath. GASTROINTESTINAL: The patient denies nausea, vomiting, diarrhea or abdominal pain. ORTHOPEDIC: The patient admits to pain, swelling and some drainage to her right leg as well as pain to a small ulceration on the left lower leg. GENITOURINARY: The patient denies frequency or urgency. The patient denies dysuria. Other systems in a 14-point review of systems are negative. [address] [address] CONSULTATION Name: THIAGO SMITH Room #: 420-P [facility] IN ..#: [id number] Admission: 01/13/19 ������������������ Attend Phys: Kashif Avendaño MD Discharge: ������������������ Date of : 40 Report #: [id number] PHYSICAL EXAMINATION: VITAL SIGNS: At this time include temperature 36.4, pulse 62, respiratory rate 18, blood pressure 112/40. GENERAL: This is a chronically ill-appearing female patient who appears to be in no distress. HEENT: Head is normocephalic. Nose and throat clear. NECK: Supple. LUNGS: Clear. ABDOMEN: Soft. Bowel sounds present. EXTREMITIES: The lower extremities demonstrate 1-2+ edema bilaterally. She has a large circular ulceration on the right lower leg with surrounding erythema. There is a thick coating of yellow green fibrinous material with moderate drainage. It is very tender to palpation. She has two small ulcers on the left pretibial region that are relatively superficial, clean, but very, very tender to palpation. NEUROLOGIC: The patient is alert and oriented and appropriate. LABORATORY DATA: Includes white blood cell count 6.2 with a hemoglobin of 7.1, hematocrit of 21.5. Sodium 143, potassium 3.2, chloride 106, CO2 29, BUN 53, creatinine 1.6, albumin is 3.1. CLINICAL IMPRESSION: 1. Chronic ulcerations in bilateral lower extremities, right much greater than left. 2. Cellulitis and wound infection of the right lower extremity. 3. Venous insufficiency. 4. History of coronary artery disease. 5. Chronic diastolic heart failure. 6. Hypertension. 7. History of peripheral arterial disease. Lower extremity arterial Doppler in 03/2018 demonstrated 50% restenosis of proximal right anterior tibial artery within prior stent, unchanged occlusion of the right tibioperoneal trunk, no flow limiting stenosis in the left lower extremity. RECOMMENDATIONS: At this point in time, we will recommend topical Xeroform, ABD, Kerlix and Chris wrap for now. She is scheduled for a Misonix debridement and placement of skin substitute tomorrow. Culture and sensitivity has been obtained from the surface. She has been started on empiric antibiotic therapy that will be tailored pending her culture results. It will be worthwhile I [address] [address] CONSULTATION Name: LUISTHIAGO NELSON Room #: 420-P [facility] IN M.R.#: [id number] Admission: 01/13/19 ������������������ Attend Phys: Kashif Avendaño MD Discharge: ������������������ Date of : 40 Report #: [id number] think rechecking an arterial Doppler for surveillance of previous stents and current vascular status. I appreciate being asked to see her in consultation. ��������������������������������������������� <ELECTRONICALLY SIGNED> ���������������������������������������� By: Deyvi Hughes MD ��������������������������������������������� 01/15/19 1108 1223 1836 Deyvi Hughes MD /nt
[2019-01-15 15:30] VITALS: BP 111/42
[2019-01-15 20:00] VITALS: BP 131/41
[2019-01-16 05:09] LABS: HEMATOCRIT 22.8 % (37.0-47.0); HEMOGLOBIN 7.5 gm/dL (12.0-15.0); MCH 31.5 pg (26.0-34.0); MCHC 32.8 g/dL (28.0-37.0); RBC 2.38 mil/uL (4.20-5.00); RDW 19.4 % (10.5-14.5); WBC 3.1 thou/uL (4.0-11.0)
[2019-01-16 05:17] LABS: CALCIUM 8.7 mg/dL (8.5-10.1); CREATININE 1.2 mg/dL (0.6-1.0); POTASSIUM 3.8 mmol/L (3.5-5.1)
[2019-01-16 05:49] VITALS: BP 155/62
[2019-01-16 18:08] VITALS: BP 127/51
[2019-01-16 19:50] VITALS: BP 117/35
[2019-01-17 05:52] VITALS: BP 144/62
[2019-01-17 06:08] LABS: HEMOGLOBIN 7.1 gm/dL (12.0-15.0); MCH 30.7 pg (26.0-34.0); MCHC 32.1 g/dL (28.0-37.0); MCV 95.8 fL (80.0-100.0); RBC 2.29 mil/uL (4.20-5.00); RDW 19.2 % (10.5-14.5); WBC 4.2 thou/uL (4.0-11.0)
[2019-01-17 06:21] LABS: CALCIUM 8.5 mg/dL (8.5-10.1); CREATININE 1.1 mg/dL (0.6-1.0); MAGNESIUM 2.3 mg/dL (1.8-2.4); POTASSIUM 3.7 mmol/L (3.5-5.1)
[2019-01-17 11:55] VITALS: BP 131/40
[2019-01-17 20:14] VITALS: BP 141/54
[2019-01-18 03:00] VITALS: BP 149/55
[2019-01-18 06:02] LABS: HEMOGLOBIN 6.7 gm/dL (12.0-15.0); MCH 30.9 pg (26.0-34.0); WBC 4.9 thou/uL (4.0-11.0)
[2019-01-18 06:04] LABS: HEMATOCRIT 20.5 % (37.0-47.0); MCHC 32.5 g/dL (28.0-37.0); RBC 2.16 mil/uL (4.20-5.00); RDW 19.3 % (10.5-14.5)
[2019-01-18 06:11] LABS: CALCIUM 8.4 mg/dL (8.5-10.1); MAGNESIUM 1.8 mg/dL (1.8-2.4); POTASSIUM 4.5 mmol/L (3.5-5.1)
[2019-01-18 07:07] VITALS: BP 191/83
[2019-01-18 10:39] VITALS: BP 139/44; BP 141/50
[2019-01-18 22:25] VITALS: BP 132/45
[2019-01-19 08:09] LABS: HEMATOCRIT 23.6 % (37.0-47.0); HEMOGLOBIN 7.8 gm/dL (12.0-15.0)
[2019-01-19 08:12] VITALS: BP 161/50
[2019-01-19 15:40] VITALS: BP 131/38
[2019-01-19 20:50] VITALS: BP 135/48
[2019-01-20 02:20] VITALS: BP 120/60
[2019-01-20 07:16] VITALS: BP 161/53
--- NOTE | 2019-01-26 06:38 | HC ---
[facility] [place] [address] CONSULTATION Name: THIAGO SMITH Room #: 420-P [facility] IN M.R.#: [id number] Admission: 01/13/19 ������������������ Attend Phys: Durga Brambila MD Discharge: 01/20/19 ������������������ Date of : 40 Report #: [id number] THIS REPORT FOR: //name// CC: Durga Deleon DATE OF SERVICE: 01/19/2019 HISTORY OF PRESENT ILLNESS: The patient is a 78-year-old white female with bilateral lower extremity nonhealing wounds with the development of cellulitis. She has peripheral vascular disease. She has a history of repeated falls and has had to call the fire department to help her get up quite often. She was noted to have bilateral venous stasis ulcers of her lower extremities and these were debrided on 01/15/2019. She does have some acute renal insufficiency superimposed on chronic kidney disease. We are seeing her in rehabilitation medicine consultation. PAST MEDICAL HISTORY: Includes peripheral vascular disease with a history of 10 stents, history of hypertension, hyperlipidemia, obstructive sleep apnea, intolerant to CPAP, COPD, C. diff and bilateral shoulder rotator cuff tears. MEDICATIONS: Please see the full medication listing. ALLERGIES: SULINDAC, VANCOMYCIN, FLUTICASONE AND SALMETEROL. HABITS: Former tobacco smoker 50 years, 2 packs a day. Alcohol, on special occasions. FAMILY HISTORY: Stroke aneurysm. SOCIAL HISTORY: She lives with significant other who is at the [facility] for therapy after a broken hip. He is apparently to go back home later this week. The patient premorbidly utilized a front-wheeled walker. There is note that she also has a wheelchair. There is a son that is involved. REVIEW OF SYSTEMS: Did not offer any current complaints of chest pain, shortness of breath or abdominal discomfort. PHYSICAL EXAMINATION: GENERAL: A 78-year-old white female, in no obvious distress. She is alert and pleasant. VITAL SIGNS: Last recorded temperature 98.3, pulse 62, respirations 20 and blood pressure 161/50. HEENT: Appeared to be benign. NEUROLOGIC: Cranial nerves are grossly intact. Facies are symmetric. She has very limited movement of both shoulders with her chronic rotator cuff tears. She has significant degenerative arthritis of both hands. Strength in elbows, [address] [address] CONSULTATION Name: THIAGO SMITH Room #: 420-P [facility] IN M.R.#: [id number] Admission: 01/13/19 ������������������ Attend Phys: Durga Brambila MD Discharge: 01/20/19 ������������������ Date of : 40 Report #: [id number] wrists, and hands are a grade 4- to 3+. Lower extremities wrapped from the surgical procedure. Strength is probably a grade 4- to 3+/5. Tone appeared to be intact. Sit to stand is min assist. Gait was 15 feet, min assist with a front-wheeled walker. Lower extremity dressing is mod assist. ASSESSMENT: A 78-year-old white female with the following problem list: 1. Nonhealing bilateral lower extremity venous stasis ulcers, concerning for cellulitis. 2. Status post bilateral lower extremity ulcer excision and debridement on 01/15/2019. 3. History of gait instability with frequent falls. 4. Peripheral vascular disease with multiple stents. 5. Hyperlipidemia. 6. Hypertension. 7. Chronic obstructive pulmonary disease. 8. Obstructive sleep apnea noted to be intolerant to CPAP. 9. Bilateral shoulder rotator cuff tears. PLAN: I am uncertain if the patient would qualify for an acute in-hospital inpatient rehabilitation stay. We will follow along with you regarding rehab therapy options. ��������������������������������������������� <ELECTRONICALLY SIGNED> ���������������������������������������� By: Primitivo Valadez MD ��������������������������������������������� 01/26/19 0638 1156 1338 Primitivo Valadez MD /nt
== END 2019-01-20 18:22 | DRG 570 ==
LOC: HYPER 06:42 → 4E 15:01 → 3W 15:01 → 4E 20:33
PROVIDERS: Internal Medicine; Nurse Practitioner; Surgery; ADMIT Family Medicine
PROC: 0JU Subcutaneous Tissue and Fascia, Supplement (ICD-10-PCS; principal; 2019-01-15)
PROC: 0JBN0ZZ Excision of Right Lower Leg Subcutaneous Tissue and Fascia, Open Approach (ICD-10-PCS; principal; 2019-01-15)
PROC: 0JBP0ZZ Excision of Left Lower Leg Subcutaneous Tissue and Fascia, Open Approach (ICD-10-PCS; principal; 2019-01-15)
PROC: 30233N1 Transfusion of Nonautologous Red Blood Cells into Peripheral Vein, Percutaneous Approach (ICD-10-PCS; 2019-01-18)
DX: L03.115 Cellulitis of right lower limb (principal); N17.0 Acute kidney failure with tubular necrosis; L97.819 Non-pressure chronic ulcer of other part of right lower leg with unspecified severity; I13.0 Hypertensive heart and chronic kidney disease with heart failure and stage 1 through stage 4 chronic kidney disease, or unspecified chronic kidney disease; L97.829 Non-pressure chronic ulcer of other part of left lower leg with unspecified severity; I50.32 Chronic diastolic (congestive) heart failure; N17.9 Acute kidney failure, unspecified; Z66 Do not resuscitate; M19.90 Unspecified osteoarthritis, unspecified site; I73.9 Peripheral vascular disease, unspecified; L03.116 Cellulitis of left lower limb; G47.33 Obstructive sleep apnea (adult) (pediatric); N18.9 Chronic kidney disease, unspecified; R29.6 Repeated falls; E78.5 Hyperlipidemia, unspecified; M75.102 Unspecified rotator cuff tear or rupture of left shoulder, not specified as traumatic; M75.101 Unspecified rotator cuff tear or rupture of right shoulder, not specified as traumatic; F32.9 Major depressive disorder, single episode, unspecified; K21.9 Gastro-esophageal reflux disease without esophagitis; E87.6 Hypokalemia; D63.8 Anemia in other chronic diseases classified elsewhere; B95.61 Methicillin susceptible Staphylococcus aureus infection as the cause of diseases classified elsewhere; I25.10 Atherosclerotic heart disease of native coronary artery without angina pectoris; I87.2 Venous insufficiency (chronic) (peripheral); J44.9 Chronic obstructive pulmonary disease, unspecified; Z95.820 Peripheral vascular angioplasty status with implants and grafts; Z95.5 Presence of coronary angioplasty implant and graft; Z90.710 Acquired absence of both cervix and uterus; Z87.891 Personal history of nicotine dependence; Z86.73 Personal history of transient ischemic attack (TIA), and cerebral infarction without residual deficits; Z79.899 Other long term (current) drug therapy; Z88.1 Allergy status to other antibiotic agents; Z88.8 Allergy status to other drugs, medicaments and biological substances; Z82.3 Family history of stroke; Z82.49 Family history of ischemic heart disease and other diseases of the circulatory system
CPT/HCPCS: 10783; 50010; 50101; 50386; 51412; 56524; 57119; 57120; 57141; 57192; 62110; 62900; 70005

== ENCOUNTER → 2019-02-09 | Outpatient (CLI) | payer OTHER, BC ==
[2019-02-09 16:53] LABS: HEMATOCRIT 26.3 % (37.0-47.0); HEMOGLOBIN 8.6 gm/dL (12.0-15.0)
== END ==
LOC: HYPER 06:51
PROVIDERS: Emergency Medicine
DX: L97.212 Non-pressure chronic ulcer of right calf with fat layer exposed (principal); L03.115 Cellulitis of right lower limb; T63.301D Toxic effect of unspecified spider venom, accidental (unintentional), subsequent encounter; I70.203 Unspecified atherosclerosis of native arteries of extremities, bilateral legs; I50.20 Unspecified systolic (congestive) heart failure; B95.62 Methicillin resistant Staphylococcus aureus infection as the cause of diseases classified elsewhere; I25.10 Atherosclerotic heart disease of native coronary artery without angina pectoris; K21.9 Gastro-esophageal reflux disease without esophagitis; M19.90 Unspecified osteoarthritis, unspecified site; R60.0 Localized edema; Z87.891 Personal history of nicotine dependence

== ENCOUNTER 2019-02-17 12:37 | Emergency (ER) | payer OTHER, BC ==
[~2019-02-17] VITALS: Ht 160 cm; Wt 49.9 kg
[2019-02-17 13:41] LABS: ABSOLUTE NEUTROPHILS 2.9 thou/uL (1.4-8.2); BASOPHILS 1.3 % (0.0-2.0); EOSINOPHILS 3.1 % (0.0-3.0); HEMATOCRIT 21.7 % (37.0-47.0); HEMOGLOBIN 7.2 gm/dL (12.0-15.0); MCH 31.5 pg (26.0-34.0); MCHC 32.9 g/dL (28.0-37.0); MCV 95.6 fL (80.0-100.0); MONOCYTES 7.5 % (1.0-8.0); PLATELET COUNT 341 thou/uL (150-400); POLYS 73.1 % (36.0-66.0); RBC 2.27 mil/uL (4.20-5.00); RDW 15.8 % (10.5-14.5)
[2019-02-17 13:47] LABS: ANION GAP 8 mmol/L (7-16); BUN 43 mg/dL (7-18); CALCIUM 10.3 mg/dL (8.5-10.1); CHLORIDE 104 mmol/L (98-107); CO2 28 mmol/L (21-32); CREATININE 1.2 mg/dL (0.6-1.0); GLUCOSE 119 mg/dL (74-106); POTASSIUM 3.8 mmol/L (3.5-5.1); SODIUM 140 mmol/L (136-145)
[2019-02-17 13:56] LABS: TROPONIN-I <0.06 ng/mL (<0.06)
[2019-02-17 14:26] VITALS: BP 116/36
--- NOTE | 2019-02-21 17:50 | EKG ---
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: 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 : 1940 Requested By: Luciano Burns Order Number: [id number] MD: Gus Linton Measurements Intervals [place] Rate: 66 P: 83 NJ: 221 QRS: 3 QRSD: 110 T: 42 QT: 399 QTc: 418 Interpretive Statements Sinus rhythm Prolonged [place] interval Compared to ECG 11/18/2018 13:48:01 First degree AV block now present ST (T wave) deviation no longer present Electronically Signed On 02-21-2019 17:49:55 CDT by Gus Linton [email or web address] ��������������������������������������������� <ELECTRONICALLY SIGNED> ���������������������������������������� By: Gus Linton MD, [facility] ��������������������������������������������� 02/21/19 1749 1257 1257 Gus Linton MD, [facility] /EPI
== END 2019-02-17 14:31 | disposition home or self-care (01) ==
LOC: ER 12:37
PROVIDERS: Emergency Medicine
DX: S80.921A Unspecified superficial injury of right lower leg, initial encounter (principal); R06.00 Dyspnea, unspecified; D64.9 Anemia, unspecified; M19.90 Unspecified osteoarthritis, unspecified site; I25.10 Atherosclerotic heart disease of native coronary artery without angina pectoris; J44.9 Chronic obstructive pulmonary disease, unspecified; G47.33 Obstructive sleep apnea (adult) (pediatric); F32.9 Major depressive disorder, single episode, unspecified; I10 Essential (primary) hypertension; F17.210 Nicotine dependence, cigarettes, uncomplicated; Z88.1 Allergy status to other antibiotic agents; Z90.710 Acquired absence of both cervix and uterus; Z88.8 Allergy status to other drugs, medicaments and biological substances; X58.XXXA Exposure to other specified factors, initial encounter; Y93.89 Activity, other specified; Y92.89 Other specified places as the place of occurrence of the external cause; Y99.8 Other external cause status

== ENCOUNTER → 2019-02-17 | Outpatient (CLI) | payer OTHER, BC | LOC: HYPER 06:15 | DX: L97.212 Non-pressure chronic ulcer of right calf with fat layer exposed (principal); T63.301D Toxic effect of unspecified spider venom, accidental (unintentional), subsequent encounter; I73.9 Peripheral vascular disease, unspecified; L03.115 Cellulitis of right lower limb; I50.20 Unspecified systolic (congestive) heart failure; B95.62 Methicillin resistant Staphylococcus aureus infection as the cause of diseases classified elsewhere; I25.10 Atherosclerotic heart disease of native coronary artery without angina pectoris; K21.9 Gastro-esophageal reflux disease without esophagitis; M19.90 Unspecified osteoarthritis, unspecified site; R60.0 Localized edema; Z87.891 Personal history of nicotine dependence ==

== ENCOUNTER 2019-02-22 13:53 | Inpatient (IN) | payer OTHER, BC ==
[~2019-02-22] VITALS: Ht 152.4 cm; Wt 52.1 kg
[2019-02-22 13:54] VITALS: BP 88/40
[2019-02-22 15:10] LABS: ABSOLUTE NEUTROPHILS 3.8 thou/uL (1.4-8.2); BASOPHILS 1.1 % (0.0-2.0); EOSINOPHILS 0.9 % (0.0-3.0); LYMPHOCYTES 11.6 % (24.0-44.0); MCH 30.7 pg (26.0-34.0); MCHC 32.2 g/dL (28.0-37.0); MCV 95.5 fL (80.0-100.0); MONOCYTES 7.2 % (1.0-8.0); PLATELET COUNT 373 thou/uL (150-400); POLYS 79.2 % (36.0-66.0); RBC 2.07 mil/uL (4.20-5.00); RDW 15.5 % (10.5-14.5); WBC 4.8 thou/uL (4.0-11.0)
[2019-02-22 15:11] LABS: HEMATOCRIT 19.8 % (37.0-47.0); HEMOGLOBIN 6.4 gm/dL (12.0-15.0)
[2019-02-22 15:15] LABS: ANION GAP 9 mmol/L (7-16); BUN 62 mg/dL (7-18); CALCIUM 9.5 mg/dL (8.5-10.1); CHLORIDE 101 mmol/L (98-107); CO2 28 mmol/L (21-32); CREATININE 1.6 mg/dL (0.6-1.0); GLUCOSE 105 mg/dL (74-106); POTASSIUM 3.4 mmol/L (3.5-5.1); SODIUM 138 mmol/L (136-145)
[2019-02-22 15:26] LABS: ALBUMIN 3.1 g/dL (3.4-5.0); MAGNESIUM 2.3 mg/dL (1.8-2.4); SGOT 15 U/L (15-37); SGPT 14 U/L (30-65); TOTAL BILIRUBIN 0.2 mg/dL (<0.1-1.0); TOTAL PROTEIN 6.8 g/dL (6.4-8.2); TROPONIN-I <0.06 ng/mL (<0.06)
[2019-02-22 18:16] VITALS: BP 98/61
[2019-02-22 19:45] VITALS: BP 122/47
[2019-02-23] VITALS (7 sets, daily range): BP systolic 83–151; BP diastolic 39–72
[2019-02-23 05:35] LABS: WBC 3.9 thou/uL (4.0-11.0)
[2019-02-23 05:38] LABS: MCH 31.8 pg (26.0-34.0); MCHC 33.3 g/dL (28.0-37.0); MCV 95.5 fL (80.0-100.0); RBC 1.69 mil/uL (4.20-5.00); RDW 15.8 % (10.5-14.5)
[2019-02-23 05:55] LABS: HEMATOCRIT 16.2 % (37.0-47.0); HEMOGLOBIN 5.4 gm/dL (12.0-15.0)
--- NOTE | 2019-02-23 06:13 | NUR ---
PATIENTS CARES WERE ASSUMED AT SHIFT CHANGE. PATIENT WAS ASSESSED AND MEDS WERE PASSED. CRITICAL LABS WAS CALLED THIS MORNING hBG 5.4.DR. LONG AWEAR THE RESULTS WERE GIVIN. ORDER FROM DR. DELAROSA. HOURLY ROUNDING WAS DONOVAN. THE BED IS IN A LOW AND LOCK
--- NOTE | 2019-02-23 10:14 | NUR ---
REST OF ADMISSION COMPLETED. CONSENTS SIGNED. RF TELEMTRY SAFETY SHEET DISCUSSSED WITH AND SIGNED. PT COMMUNICATES UNDERSTANDING.
--- NOTE | 2019-02-23 16:44 | NUR ---
Met with patient, recent dc to January 20, dc home with HH with [facility] care. Patient reports all needs on one level in home. She utilizes a walker and wc at home. She lives with s/o who recently dc home from [facility] for rehab. Supportive children. Updated [facility] care.
--- NOTE | 2019-02-23 17:21 | NUR ---
ASSUMED CARE OF PT AT SHIFT CHANGE. ASSESSMENTS CHARTED. MEDS GIVEN PER OCT. PT ALERT AND ORIENTED, VSS, DENIES CP, SOB, O2 SATS WNL ON RA. WOUND ON RIGHT LEG WRAPPED, WOUND CARE CONSULTED, PT SEEN BY WOUND PHYSICIAN- WOUND CARE PER ORDERS. PT TO HAVE EGD AND COLONOSCOPY IN AM. BOWEL PREP INITIATED. PT DENIES CONCERNS AT THIS TIME. WILL CONT TO MONITOR AND FOLLOW POC.
[2019-02-24 04:38] VITALS: BP 129/45
[2019-02-24 05:07] LABS: HEMATOCRIT 25.3 % (37.0-47.0); HEMOGLOBIN 8.3 gm/dL (12.0-15.0); MCH 30.8 pg (26.0-34.0); MCHC 32.9 g/dL (28.0-37.0); MCV 93.8 fL (80.0-100.0); RBC 2.7 mil/uL (4.20-5.00); RDW 16.6 % (10.5-14.5); WBC 3.6 thou/uL (4.0-11.0)
[2019-02-24 08:21] VITALS: BP 136/48
[2019-02-24 14:07] VITALS: BP 136/48
--- NOTE | 2019-02-24 14:08 | NUR ---
no plan for dc today patient reports cp to RN. Updated [facility].
--- NOTE | 2019-02-24 14:47 | 2DMMODE ---
[facility] [place] [address] 2 D/M-MODE ECHOCARDIOGRAM Name: LUISTHIAGO NELSON Room #: 209-P [facility] IN .R.#: [id number] Admission: 02/22/19 Attend Phys: Durga Brambila, Discharge: Date of : 40 Date of Service: 02/24/19 1446 Report #: [id number] THIS REPORT FOR: //name// APPROVED REPORT Study performed: 02/24/2019 13:26:51 EXAM: Comprehensive 2D, Doppler, and color-flow Echocardiogram Patient Location: In-Patient Room #: 209 Status: routine BSA: 1.45 HR: 78 bpm BP: 136/48 mmHg Rhythm: NSR Other Information Study Quality: Adequate Indications Chest Pain Hx; COPD, CAD, Stent, CHF, HTN. 2D Dimensions RVDd: 36.21 mm IVSd: 10.05 (7-11mm) LVOT Diam: 20.05 (18-24mm) LVDd: 36.21 mm PWd: 10.06 (7-11mm) LVDs: 26.65 (25-40mm) Aortic Root: 29.92 mm Volumes Left Atrial Volume (Systole) Single Plane 4CH: 25.11 mL Single Plane 2CH: 60.43 mL LA ESV Index: 36.00 mL/m2 Aortic Valve AoV Peak Jasbir.: 1.72 m/s AO Peak Gr.: 11.89 mmHg LVOT Max P.76 mmHg LVOT Max V: 1.30 m/s EVAN Vmax: 2.38 cm2 AI Vmax: 3.42 m/s AI [place]: 1.75 m/s2 AI PHT: 571.[address] [facility] [place] [address] [place] [address] 2 D/M-MODE ECHOCARDIOGRAM Name: THIAGO SMITH Room #: 209-P [facility] IN .R.#: [id number] Admission: 02/22/19 Attend Phys: Durga Brambila, Discharge: Date of : 40 Date of Service: 02/24/19 1446 Report #: [id number] Mitral Valve E/A Ratio: 0.8 MV Decel. Time: 121.77 ms MV E Max Jasbir.: 0.66 m/s MV A Jasbir.: 0.85 m/s MV PHT: 35.31 ms Pulmonary Valve PV Peak Jasbir.: 1.10 m/s PV Peak Gr.: 4.87 mmHg Pulmonary Vein P Vein S: 0.50 m/s P Vein A: 0.28 m/s P Vein D: 0.51 m/s P Vein A Dur.: 58.8 msec P Vein S/D Ratio: 0.98 Tricuspid Valve TR Peak Jasbir.: 2.18 m/s RAP Estimate: 5.00 mmHg TR Peak Gr.: 19.03 mmHg PA Pressure: 24.00 mmHg Left Ventricle The left ventricle is normal size. Mild basal septal hypertrophy is present. Left ventricular systolic function is normal. LVEF is 60%. Mild diastolic dysfunction is present (impaired relaxation pattern). Right Ventricle The right ventricle is normal size. The right ventricular systolic function is normal. Atria Left atrium is at the upper limits of normal. The right atrium size is normal. Aortic Valve The aortic valve is normal in structure. Mild to moderate aortic regurgitation. There is no aortic valvular stenosis. Mitral Valve The mitral valve is normal in structure. Trace mitral regurgitation. No evidence of mitral valve stenosis. Tricuspid Valve The tricuspid valve is normal in structure. Mild tricuspid regurgitation. Estimated PAP is 24mmHg. [place] [id number] 2 D/M-MODE ECHOCARDIOGRAM Name: THIAGO SMITH Room #: 209-P [facility] IN .R.#: [id number] Admission: 02/22/19 Attend Phys: Durga Brambila, Discharge: Date of : 40 Date of Service: 02/24/19 1446 Report #: [id number] Pulmonic Valve Pulmonic valve is not well visualized. Great Vessels The aortic root is normal in size. IVC is normal in size and collapses >50% with inspiration. Pericardium There is no pericardial effusion. <Conclusion> The left ventricle is normal size. LVEF is 60%. Mild diastolic dysfunction is present (impaired relaxation pattern). The right ventricle is normal size. Left atrium is at the upper limits of normal. Mild to moderate aortic regurgitation. Trace mitral regurgitation. Mild tricuspid regurgitation. Estimated PAP is 24mmHg. The aortic root is normal in size. There is no pericardial effusion. <ELECTRONICALLY SIGNED> By: Neo Salinas MD, FACC 02/24/19 1446 1446 1446 Neo Salinas MD, FACC /INF
--- NOTE | 2019-02-24 15:52 | NUR ---
ASSESSMENT CHARTED - MEDS PER [facility] - AISSATOU DIET AND FLUIDS. NO CO'S OF PAIN OR NAUSEA. UP IN ROOM WITH STANDBY ASSIT TO THE BATHROOM AND TO THE CHAIR. PT HOME THIS AFTERNOON. INSTRUCTION RE HOME MEDS/ CARE AND FOLLOW UP GIVEN TO PATIENT - STATED UNDERSTANDING OF INSTRUCTION GIVEN. IV AND MONITOR REMOVED PRIOR TO D/C. PT LEFT UNIT VIA WHEELCHAIR - HOME VIA PVT VEHIC;LE ACCOMPANIED BY SON. NO CO'S AT TIME OF D/C.
[2019-02-24 16:23] VITALS: BP 97/40
--- NOTE | 2019-02-24 16:37 | NUR ---
ASSESSMENT CHARTED - MEDS PER OCT - PT GIVEN YYLENOL FOR PAIN IN SHOULDERS WITH NO RELIEF - GIVEN MORPHINE IV WITH MIN RELIEF - PATIENT STATES PAIN IN SHOULDERS WORSE NO THAT SHE HAS HAD EGD AND COLONOSCOPY THIS AM - PT WITH CO'S OF RIB PAIN ON THE LEFT - STATES SHE THINKS SHE HAS BROKEN RIBS - CHEST XRAY NEGATIVE. SEEN BY CARDIOLOGY POST PROCEDURE DUE TO PAIN - ECHO/ EKG COMPLETED - SEE CONSULT NOTE. PT UP TO TE BSC WITH ASSIST - BP LOW ON RETURN FROM PROCEDURE - LACE BACK ON FLUIDS. BP LAST CHECK 99 SYS. ABLE TO GIVEN 500CC BOLUS OF FLUID IF SYS LESS THAT 90 SYS. PT WITH PILL CAM INSITU TO BE REMOVED AT 1800. TO HAVE REG DIET FOR DINNER - AISSATOU LIQUIDS. PT RESTING IN BED AT THE PRESENT TIME.
--- NOTE | 2019-02-24 16:54 | HC ---
[facility] [place] [address] CONSULTATION Name: THIAGO SMITH Room #: 209-P ADM IN M.R.#: [id number] Admission: 02/22/19 Attend Phys: Durga Brmabila MD Discharge: Date of : 40 Report #: [id number] THIS REPORT FOR: //name// CC: Durga Brambila DATE OF SERVICE: 02/23/2019 CHIEF COMPLAINT: Chronic ulceration to the right lower extremity. HISTORY OF PRESENT ILLNESS: This is a 78-year-old female patient with whom I am familiar from multiple previous hospitalizations as well as outpatient evaluation who was admitted with weakness and shortness of breath. She was noted to have significant anemia and transfusions have been started. She has a chronic ulcer on the right lower extremity following a brown recluse bite 3 years ago and we have been following her steadily. She has had cultures during her last hospitalization about a month ago. At that time, she was treated with Misonix debridement, Xeroform, ABD, and Tubigrip stockings. She was evaluated by Interventional Radiology for her PVD and there was felt to be no further intervention required at that time. The patient states her leg is doing quite well. PAST MEDICAL HISTORY: As detailed in history of present illness and also includes arthritis, coronary artery disease, COPD, congestive heart failure, obstructive sleep apnea, depression, brain aneurysm, currently being watched; iron deficiency anemia; and peripheral vascular disease, having had a stent placed in her right leg in 11/2016. SOCIAL HISTORY: The patient is a former smoker. No alcohol use. FAMILY HISTORY: Positive for history of a cerebral aneurysm. MEDICATIONS: Include Lasix, Bystolic, Celexa, Stiolto, Caltrate, bupropion, Diovan, Protonix, AccuNeb, Centrum Silver, Lipitor, Ultram, esterase, aspirin, Tylenol, and vitamin C. ALLERGIES: SULINDAC, VANCOMYCIN, FLUTICASONE, and SALMETEROL. REVIEW OF SYSTEMS: CONSTITUTIONAL: The patient denies fever, chills, or weight loss. NEUROLOGICAL: The patient denies focal weakness, numbness, or tingling. EYES: The patient denies visual changes, redness, or drainage. ENT: The patient denies earache, nasal drainage, or sore throat. CARDIOVASCULAR: The patient denies chest pain, palpitations, or diaphoresis. PULMONARY: The patient denies cough or shortness of breath. GASTROINTESTINAL: The patient denies nausea, vomiting, diarrhea, or abdominal pain. [address] [address] CONSULTATION Name: THIAGO SMITH Room #: 209-P [facility] IN ..#: [id number] Admission: 02/22/19 Attend Phys: Durga Brambila MD Discharge: Date of : 40 Report #: [id number] ORTHOPEDIC: The patient does complain of the ulceration on her right lower extremity. Other systems in a 14-point review of systems are negative. PHYSICAL EXAMINATION: VITAL SIGNS: At this time include temperature 97.7, pulse 67, respiratory rate 16, and blood pressure 110/46. GENERAL: This is a chronically ill-appearing female patient who appears to be in minimal distress. HEENT: Head normocephalic. Nose and throat are clear. NECK: Supple. LUNGS: Clear. HEART: Regular rhythm. ABDOMEN: Soft, bowel sounds present. EXTREMITIES: Without clubbing or cyanosis. NEUROLOGIC: She has a circular ulceration on the right lower leg. It is relatively clean, granulating, does not appear to be infected. There is trace edema. It is actually improved. LABORATORY DATA: Include sodium 138, potassium 3.4, chloride 101, CO2 28, BUN 62, creatinine 1.6, glucose 105, albumin 3.1. White blood cell count 3.9 with hemoglobin of 7.3 following a low of 5.4 earlier today. CLINICAL IMPRESSION: 1. Chronic ulceration, right lower extremity following a brown recluse bite 3 years ago, slowly improving. 2. History of wound infection, cellulitis, which is also improving. 3. Venous insufficiency. 4. Peripheral arterial disease, status post right anterior tibial stent placement and has a history of prior cerebrovascular accident. RECOMMENDATIONS: At this point in time, we will recommend Silvadene, morphine, compound with Xeroform gauze, ABD, and Kerlix to be changed daily. We will not recommend elevation of her legs. She is a little bit of cellulitis to her left lower extremity. We will place her on Levaquin 250 daily. We will continue to follow here in the hospital, recommend ongoing nutritional support to maximize wound healing. <ELECTRONICALLY SIGNED> By: Deyvi Hughes MD 02/24/19 1654 1506 34 Deyvi Hughes MD /nt
[2019-02-24 20:15] VITALS: BP 86/35
--- NOTE | 2019-02-24 23:32 | EKG ---
[address] [place] [address] ELECTROCARDIOGRAM REPORT Name: LUISTHIAGO LESLIE Room #: 209-P ADM IN M.R.#: [id number] Admission: 02/22/19 Attend Phys: Durga Brambila MD Discharge: Date of : 40 Report #: [id number] THIS REPORT FOR: //name// 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
--- NOTE | 2019-02-24 23:33 | EKG ---
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 Engine Tester: Effie SIMPSON : 1940 Requested By: Aleyda Hamilton Order Number: [id number] MD: Tacho Crenshaw Measurements Intervals [place] Rate: 82 P: 78 MN: 184 QRS: -3 QRSD: 98 T: 43 QT: 394 QTc: 461 Interpretive Statements Sinus rhythm Atrial premature complex Borderline low voltage, extremity leads Compared to ECG 02/17/2019 12:57:07 Atrial premature complex(es) now present First degree AV block no longer present Electronically Signed On 02-24-2019 23:33:37 CDT by Tacho Crenshaw [email or web address] <ELECTRONICALLY SIGNED> By: Tacho Crenshaw MD 02/24/19 2333 1425 1425 Tacho Crenshaw MD /EPI
[2019-02-25] VITALS (8 sets, daily range): BP systolic 80–131; BP diastolic 35–96
--- NOTE | 2019-02-25 02:48 | NUR ---
patients care was assumed at shift change. patient was assessed andmeds were passed.patient requested a penn due to her shoulder pain. encuraged this patient to sit longer and even stand up and sit back down to void again. patient also requested that the pill cam belt to be removed. patient was bladder scaned and 596 was found and patient was placed on the bsc and she voided 200. hourly rounding was done and the bed was in low and locked position.
--- NOTE | 2019-02-25 05:42 | NUR ---
ASSUMED CARE AT 0200, PT ALERT AND ORIENTED. C/O RIB PAIN AND SHOULDER PAIN. PT REFUSES TO GET UP DUE TO PAIN. UNABLE TO URINATE. BLADDER SCAN RESIDUAL 722. STRAIGHT CATH 550 OUT. REPORTS FEELING BETTER.ABDOMEN FEELS FIRM AND HURTS ON PALPATION. ACTIVE BOWEL SOUNDS. WILL CONTINUE TO FOLLOW PLAN OF CARE.
[2019-02-25 08:55] LABS: MCH 30.7 pg (26.0-34.0); MCHC 31.6 g/dL (28.0-37.0); MCV 97.1 fL (80.0-100.0); RBC 1.6 mil/uL (4.20-5.00); RDW 16.5 % (10.5-14.5); WBC 7.9 thou/uL (4.0-11.0)
[2019-02-25 08:58] LABS: HEMATOCRIT 15.5 % (37.0-47.0); HEMOGLOBIN 4.9 gm/dL (12.0-15.0)
--- NOTE | 2019-02-25 09:00 | EKG ---
[place] [address] [employer] [facility] [place] [address] ELECTROCARDIOGRAM REPORT Name: THIAGO SMITH Room #: 209-P ADM IN M.R.#: [id number] Admission: 02/22/19 Attend Phys: Durga Brambila MD Discharge: Date of : 40 Report #: [id number] THIS REPORT FOR: //name// [facility] Test Date: 2019-02-25 Test Time: 07:24:32 Pat Name: THIAGO SMITH Department: Room: 209 P Gender: F Agricultural Consultant: Campbell MORILLO : 1940 Requested By: Neo Salinas Order Number: [id number] MD: Gus Linton Measurements Intervals [place] Rate: 94 P: 74 PA: 213 QRS: 0 QRSD: 102 T: 20 QT: 358 QTc: 448 Interpretive Statements Sinus rhythm Borderline prolonged PA interval Nonspecific ST segment abnormality Compared to ECG 02/24/2019 14:25:21 ST (T wave) deviation now present Atrial premature complex(es) no longer present Electronically Signed On 02-25-2019 9:00:22 CDT by Gus Linton [email or web address] <ELECTRONICALLY SIGNED> By: Gus Linton MD, [facility] 02/25/19 0900 3 3 Gus Linton MD, [facility] /EPI
[2019-02-25 09:01] LABS: CALCIUM 8.1 mg/dL (8.5-10.1); CREATININE 1.1 mg/dL (0.6-1.0); POTASSIUM 4.1 mmol/L (3.5-5.1)
--- NOTE | 2019-02-25 14:24 | NUR ---
Following along for dc planning. Pt was scoped yesterday. Hgb 4.9 today. Getting blood and finished capsule study. Rehab and therapy evals requested as appropriate to eval for recommendations to aid dc planning. [facility] being updated. Pt had acute rehab stay at [facility] last month. Will follow.
[2019-02-25 16:13] LABS: HEMOGLOBIN 6.4 gm/dL (12.0-15.0)
--- NOTE | 2019-02-25 16:47 | NUR ---
ASSESSMENT CHARTED - MEDS PER OCT - PT WITH CO'S OF PAIN IN SHOULDERS - GIVEN TYLENOL REQUESTED WITH MIN/MOD EFFECT. PT WITH CO'S OF FEELING BLOATED GIVEN SIMETHICON CHEWS X 2 MOD RELIEF. PT WITH HEAM 4.9 THIS AM - TRANSFUSED WITH 1 UN PRBC'S HEAM UP TO 6.4 POST INFUSION - ANOTHER UNIT ORDERED FOR TOMORROW 02/26. PT TO BE NPO AFTER MN FOR GI PROCEDURE IN THE AM. PT CONTINUE TO CO OF PAIN ON DEEP INSPIRATION IN RIB CAGE AREA - DOC AWARE. SEEN BY OCC THERAPY THIS AFTERNOON - REHAB CONSULT COMPLETED - UNABLE TO BE SEEN BY PHYS THERAPY DUE TO BLOOD TRANSFUSION. PT UP TO THE BSC TO VOID - REQIRED MUCH ENCOURAGMENT PATIENT JUST WANTING BLADDER SCAN DONE AND THEN CATHED. INFORMED PATIENT THAT THIS WAS NOT A GOOD IDEA DUE TO THE INCREAWSED RISK OF INFECTION - IRRITATION. PT HAS VOIDED SMALL AMOUNG X 2. IV FLUIDS D/C'D ORDERED. FAMILY IN AT THE BEDSIDE FOR W WHILE THIS SHIFT. NO CO'S AT THE PRESENT TIME.
--- NOTE | 2019-02-26 03:58 | NUR ---
Assumed care at 1900. pt alert and oriented. C/o shoulder pain. Alleviated with tylenol. Abdominal pain/bloating, simethine given x1. pt refused to sign consent for scheduled procedure. sol palacios like more opinion and also wishes to feel better before undergoing procedure. Blood bank with 1 Unit of PRBC on standby. Pt encouraged to get up and use bedside commode as much as possible. Will continue to follow plan of care.
[2019-02-26 05:30] VITALS: BP 131/43
[2019-02-26 06:16] LABS: MCV 94.8 fL (80.0-100.0); RDW 15.5 % (10.5-14.5)
[2019-02-26 06:17] LABS: MCH 31.3 pg (26.0-34.0); RBC 1.8 mil/uL (4.20-5.00); WBC 6.8 thou/uL (4.0-11.0)
[2019-02-26 06:19] LABS: HEMATOCRIT 17.1 % (37.0-47.0); HEMOGLOBIN 5.6 gm/dL (12.0-15.0)
[2019-02-26 07:39] VITALS: BP 111/45
[2019-02-26 08:08] VITALS: BP 134/45; BP 138/48; BP 144/50
[2019-02-26 10:49] LABS: HEMATOCRIT 25.1 % (37.0-47.0); HEMOGLOBIN 8.3 gm/dL (12.0-15.0)
[2019-02-26 15:16] VITALS: BP 136/48
--- NOTE | 2019-02-26 15:16 | NUR ---
FAXED REFERRAL TO [facility] SPOKE WITH LINN IN ADM. SHE RECEIVED REFERRAL AND WILL REVIEW. DCP TO FOLLOW.
--- NOTE | 2019-02-26 15:17 | NUR ---
DC PLANNING VISIT WITH PT AT BEDSIDE THIS AFTERNOON. PT DOES NOT FEEL STRONG ENOUGH TO RETURN HOME WITH HH AT [place]. SNF AND ACUTE REHAB DISCUSSED. PT INTERESTED IN 5N. REFERRAL DISCUSSED WITH THE [facility]N [facility] AND THE PT HAS HAD A RECENT [facility] STAY IN JANUARY WITH [facility] THERE THEY CAN NOT RECONSIDER HER AT THIS TIME. PT UPDATED. SHE IS AGREEABLE TO SNF AND WOULD LIKE TO GO TO [facility] SHE THERE LAST YEAR. [facility] CONTACTED AND DC CLOTH WASHER OPERATOR FAXED REFERRAL FOR THEIR REVEIW. THEY MAY HAVE A BED AVAILABLE THIS WEEKEND IF THE PT IS STABLE FOR DC. [facility] STAFF TO CALL BRENDA IN ADMISSIONS AT [phone] IF THE PT IS DC READY. PT HAD GI PROCEDURE TODAY. POSSIBLE REFERRAL FOR AN ADDITIONAL GI ENDOSCOPE AN OUTPT IF THE PT REMAINS STABLE. WILL FOLLOW.
[2019-02-26 15:32] VITALS: BP 138/45
--- NOTE | 2019-02-26 16:15 | NUR ---
WOUND CARE FOLLOW UP; ROUNDING WITH DR MONROE AND [employer] AREA SUPERVISOR. THE WOUNDBED IS CLEAN, RED WITH NO NON- VIABLE TISSUE IN THE WOUND BED. THE3 WOUND IS TENDER BUT LESS THAN BEFORE. RECOMMENDATION- CONT CURRENT ORDERS DISCUSSED WITH STAFF
--- NOTE | 2019-02-26 16:58 | NUR ---
ASSESSMENT CHARTED - MEDS PER OCT. AISSATOU DIET AND FLUIDS, NO CO'S OF NAUSEA. GIVEN TYLENOL FOR CO'S OF PAIN ACROSS STOMACH - RIB AREA - GIVEN SIMETHICONE FOR CO'S OF ABDO BLOATINE - EACH WITH EFFECT. UP TO THE BSC TO VOID. PT WITH HEAM 6.8 THIS AM - GIVEN 1 UNIT OF PRBC HEAM UP TO 8.3. PT HAD PUSH ENDOSCOPY COMPLETED THIS AM. VSS POST PROCEDURE - WOUND CARE TENDED TO DRESING CHANGE THIS PM. PT HAS BEEN RESTING POST PROCEDURE. NO CO'S AT THE PRESENT TIME.
[2019-02-26 20:13] VITALS: BP 118/47
[2019-02-27 04:33] VITALS: BP 141/48
[2019-02-27 05:11] LABS: HEMATOCRIT 22.8 % (37.0-47.0); HEMOGLOBIN 7.5 gm/dL (12.0-15.0); MCH 31.1 pg (26.0-34.0); MCV 94.1 fL (80.0-100.0); RBC 2.42 mil/uL (4.20-5.00); RDW 15.8 % (10.5-14.5); WBC 6.4 thou/uL (4.0-11.0)
--- NOTE | 2019-02-27 06:10 | NUR ---
PT ALERT AND ORIENTED. C/O SHOULDER AND ABD PAIN. PRN TYLENOL AND SEMETHACONE. HGB THIS MORNING 7.5. PT APPEAR TO BE IN NO DISTRESS. VOIDING TO BEDSIDE COMMODE. NO FURTHER C/O /. WILL CONTINUE TO FOLLOW PLAN OF CARE.
[2019-02-27 08:03] VITALS: BP 148/52
[2019-02-27 11:55] VITALS: BP 148/49
--- NOTE | 2019-02-27 15:03 | NUR ---
ALERT AND ORIENTED. VITALS STABLE C/O SHOULDER PAIN/SORENESS THIS AFTERNOON AND MEDICATED WITH PRN TYLENOL. UP TO THE [facility] WITH MOD ASSIST OF 1 WITH GAIT BELT. TOLERATING DIET W/O NAUSEA. DRESSING ON RT. DENISE WOUND CHANGED BY WOUND CARE PHYSICIAN AND IS TO BE CHANGED DAILY PER ORDERS. WILL CONTINUE TO MONITOR CLOSELY.
[2019-02-27 15:41] VITALS: BP 134/42
[2019-02-27 19:58] VITALS: BP 161/50
[2019-02-28 00:23] VITALS: BP 144/62
--- NOTE | 2019-02-28 03:56 | NUR ---
ASSUMED CARE OF PATIENT AT 1900. PT C/O SOA AND CHEST PRESSURE. UNABLE TO VOID FULLY. DR LONG NOTIFIED, ORDERS OBTAINED FOR CXR AND LABS. RESULTS REPORT TO DR LONG. ORDERS OBTAINED FOR CTA PROTOCOL, GRIFFITHS AND FUROSEMIDE. PATIENT UPDATED TO PLACE OF CARE, ALL QUESTIONS ANSWERED. URINE OUTPUT SIGNIFICANT. WILL CONTINUE TO MONITOR CLOSELY.
[2019-02-28 05:05] VITALS: BP 141/52
[2019-02-28 05:29] LABS: CALCIUM 8.3 mg/dL (8.5-10.1); CREATININE 0.8 mg/dL (0.6-1.0); POTASSIUM 3.4 mmol/L (3.5-5.1)
[2019-02-28 05:40] LABS: HEMATOCRIT 25.1 % (37.0-47.0); HEMOGLOBIN 8.3 gm/dL (12.0-15.0); MCH 31.7 pg (26.0-34.0); MCHC 33.2 g/dL (28.0-37.0); MCV 95.4 fL (80.0-100.0); RBC 2.63 mil/uL (4.20-5.00); RDW 15.9 % (10.5-14.5); WBC 8.6 thou/uL (4.0-11.0)
[2019-02-28 08:35] VITALS: BP 147/57
[2019-02-28 11:11] VITALS: BP 129/43
[2019-02-28 15:45] VITALS: BP 138/76
--- NOTE | 2019-02-28 18:45 | NUR ---
ASSUMED CARE AT 0700, SHIFT ASSESSMENT DONE, MEDS GIVEN, VSS. DENIES NAUSEA, REPORTED GAS, PRN SIMETHICONE GIVEN. REPORTED SOME BACK PAIN, TYLENOL GIVEN. SR ON THE MONITOR. HAD A SMALL BM TODAY. STILL WEAK AND REMAINS ON 2LNC. FOLOEY IN PLACE, ADEQUATE URINE OUTPUT. WILL CONTINUE TO ASSESS AND ASSIST WITH ADLs NEEDED.
[2019-02-28 20:37] VITALS: BP 135/47
[2019-03-01 04:39] VITALS: BP 154/62
--- NOTE | 2019-03-01 07:57 | NUR ---
PATIENT SEEN BY DR. BANSAL LAST WEEK. PATIENT WAS RECENTLY ADMITTED TO [facility] FOR SAME DIAGNOSIS AND IS NOT ELIGIBLE FOR ACUTE REHAB STAY ON 5. SOCIAL WORKERS WERE INFORMED ON 02/26/19 THAT UNABLE TO ACCEPT.
[2019-03-01 08:25] VITALS: BP 141/51
[2019-03-01 09:30] LABS: HEMATOCRIT 27.7 % (37.0-47.0); HEMOGLOBIN 9.1 gm/dL (12.0-15.0); MCH 31.3 pg (26.0-34.0); MCHC 32.8 g/dL (28.0-37.0); MCV 95.2 fL (80.0-100.0); RBC 2.91 mil/uL (4.20-5.00); RDW 15.7 % (10.5-14.5); WBC 8.7 thou/uL (4.0-11.0)
[2019-03-01 09:38] LABS: CREATININE 0.8 mg/dL (0.6-1.0); POTASSIUM 3.7 mmol/L (3.5-5.1)
--- NOTE | 2019-03-01 09:46 | NUR ---
PT DISCHARGING TODAY TO [facility] SKILLED FAXED DC ORDERS/SUMMARY TO FACILITY SPOKE WITH LINN IN ADM SHE RECEIVED DC ORDERS AND ARRANGED TRANSPORTATION VIA WC VAN AND 2L 02 FOR 1100 TODAY. LEFT MSG WITH PT'S SON (ALBINO) OF DC AND TIME OF TRANSPORT. UNIT NOTITIFED AND CHART COPY PER US. RN TO CALL REPORT TO [phone].
--- NOTE | 2019-03-01 11:06 | NUR ---
assessment as charted - meds as per mar - given simethicone for co's fo gas pain. pt incont of stool this am - joe diet and fluids. no co's of nausea. pt with chonic pain. pt up to the chair and bsc with the use of gait belt. pt transfered to [facility] [place] this am - report called to Donna at facility. pt transfered via sheelchair van with belongings. no co's at time of d/c.
--- NOTE | 2019-03-05 15:16 | HC ---
[facility] [place] [address] CONSULTATION Name: THIAGO SMITH Room #: 209-P [facility] IN M.R.#: [id number] Admission: 02/22/19 Attend Phys: Durga Brambila MD Discharge: 03/01/19 Date of : 40 Report #: [id number] THIS REPORT FOR: //name// CC: Durga Brambila DATE OF SERVICE: 02/25/2019 HISTORY OF PRESENT ILLNESS: A 78-year-old white female admitted with increased shortness of breath, noted to have symptomatic anemia, hemoglobin 5.4. EGD was normal. From my review, colonoscopy showed diverticulosis, internal hemorrhoids. Video capsule was placed in the small bowel. She had some chest discomfort post-procedure, was seen by Cardiology as she does have a prior cardiac history and was thought to likely be musculoskeletal in etiology. She has medical complexity with generalized debilitation. We are seeing her in rehabilitation medicine consultation. PAST MEDICAL HISTORY: Includes COPD on 2 liters at night and p.r.n. during the day, premorbidly history of coronary artery disease with prior PTCA, left lower extremity cellulitis, right lower extremity has a chronic wound after a brown recluse, history of acute renal insufficiency, bilateral rotator cuff tears, severe degenerative arthritis of both knees, prior history also includes an aneurysm in the brain, growth on kidney, iron deficiency anemia, history of C. diff, obstructive sleep apnea, depression, hypertension, multi-joint degenerative arthritis. MEDICATIONS: Please see the full medication listing. This includes vitamins, herbals, and supplements per report. ALLERGIES: She does have multiple allergies, please see list. HABITS: Former tobacco abuse, quit greater than year ago. PAST SURGICAL HISTORY: 9 Stents: 4 legs, 2 cardiac, 2 kidney, 1 left shoulder; back surgery in 2011, urethra sling, five hand surgeries, arthritis. REVIEW OF SYSTEMS: No current complaints of chest pain. He does have some discomfort that she thinks is more or abdominal discomfort and recently received a Gas-X. She has severe chronic musculoskeletal pain, complaints involving her shoulders and knees with creaking of the joints. She is on chronic O2. SOCIAL HISTORY: She lives in a house with her male significant other. One floor, 2 steps, uses a walker or wheelchair. Her son assist with transportation or she hires transport. PHYSICAL EXAMINATION: GENERAL: A 78-year-old white female, in no obvious distress. [address] [address] CONSULTATION Name: THIAGO SMITH Room #: 209-P [facility] IN M.R.#: [id number] Admission: 02/22/19 Attend Phys: Durga Brambila MD Discharge: 03/01/19 Date of : 40 Report #: [id number] VITAL SIGNS: Last recorded temperature 98.5, pulse 97, respirations 16, blood pressure 103/42. NEUROLOGIC: The patient is alert, pleasant, appears appropriate. Nasal prong O2 is in place. Facies appeared symmetric. She has significant crepitus of both shoulders, decreased range of motion, which is chronic. Elbows, wrists reveal chronic degenerative changes. Strength is probably a grade 3+4-/5. LOWER EXTREMITIES: Bilateral knee degenerative arthritis with crepitation. She has the left lower extremity, some venous stasis changes, right distal lower extremity reveals a dressing over her leg, which she notes is a chronic wound from a spider bite. Strength of the lower extremities is probably a grade 3+/5. She has not been seen by PT or OT as of yet. ASSESSMENT: A 78-year-old white female with the following problem list: 1. Symptomatic anemia with workup as noted above. She still is markedly anemic with hemoglobin 4.9 this morning and we will be receiving a transfusion, which is underway as discussed with nursing. 2. Video capsule, placed in small bowel with results pending. 3. Chest pain, which appears musculoskeletal per Cardiology. 4. Coronary artery disease. 5. Hypertension. 6. Hyperlipidemia. 7. Chronic right lower extremity ulcer with wound care involved. 8. Carotid arterial disease. 9. Chronic obstructive pulmonary disease, on nasal prong O2. 10. History of congestive heart failure. 11. Multi-joint degenerative arthritis. 12. Bilateral shoulder rotator cuff tears. PLAN: Therapy to work with her when medically stabilized as she does have significant anemia as noted above. We will continue to follow and consider her for an acute in-hospital inpatient rehabilitation stay as she further medically stabilizes. We will follow along with you. <ELECTRONICALLY SIGNED> By: Primitivo Valadez MD 03/05/19 1516 1136 1626 Primitivo Valadez MD /LYNDA
== END 2019-03-01 11:31 | DRG 377 ==
LOC: ER 13:53 → 2N 16:23 → EROBS 16:23 → 2N 18:47
PROVIDERS: Emergency Medicine; Internal Medicine Gastroenterology; Nurse Practitioner; ADMIT Family Medicine
PROC: 30233N1 Transfusion of Nonautologous Red Blood Cells into Peripheral Vein, Percutaneous Approach (ICD-10-PCS; 2019-02-23)
PROC: 0DJD8ZZ Inspection of Lower Intestinal Tract, Via Natural or Artificial Opening Endoscopic (ICD-10-PCS; principal; 2019-02-24)
PROC: 0DJ07ZZ Inspection of Upper Intestinal Tract, Via Natural or Artificial Opening (ICD-10-PCS; principal; 2019-02-24)
DX: K57.31 Diverticulosis of large intestine without perforation or abscess with bleeding (principal); N17.0 Acute kidney failure with tubular necrosis; L97.919 Non-pressure chronic ulcer of unspecified part of right lower leg with unspecified severity; I13.0 Hypertensive heart and chronic kidney disease with heart failure and stage 1 through stage 4 chronic kidney disease, or unspecified chronic kidney disease; L03.116 Cellulitis of left lower limb; E46 Unspecified protein-calorie malnutrition; J44.9 Chronic obstructive pulmonary disease, unspecified; M19.90 Unspecified osteoarthritis, unspecified site; I25.10 Atherosclerotic heart disease of native coronary artery without angina pectoris; I50.9 Heart failure, unspecified; G47.33 Obstructive sleep apnea (adult) (pediatric); F32.9 Major depressive disorder, single episode, unspecified; I73.9 Peripheral vascular disease, unspecified; R07.9 Chest pain, unspecified; E78.5 Hyperlipidemia, unspecified; M75.102 Unspecified rotator cuff tear or rupture of left shoulder, not specified as traumatic; M75.101 Unspecified rotator cuff tear or rupture of right shoulder, not specified as traumatic; K21.9 Gastro-esophageal reflux disease without esophagitis; N18.9 Chronic kidney disease, unspecified; D50.9 Iron deficiency anemia, unspecified; K64.8 Other hemorrhoids; E87.6 Hypokalemia; Z88.1 Allergy status to other antibiotic agents; Z88.8 Allergy status to other drugs, medicaments and biological substances; Z79.82 Long term (current) use of aspirin; Z79.51 Long term (current) use of inhaled steroids; Z79.899 Other long term (current) drug therapy; Z99.81 Dependence on supplemental oxygen; Z95.5 Presence of coronary angioplasty implant and graft; Z95.820 Peripheral vascular angioplasty status with implants and grafts; Z90.710 Acquired absence of both cervix and uterus; Z87.891 Personal history of nicotine dependence; I25.2 Old myocardial infarction; Z86.73 Personal history of transient ischemic attack (TIA), and cerebral infarction without residual deficits; Z68.22 Body mass index [BMI] 22.0-22.9, adult; Q27.33 Arteriovenous malformation of digestive system vessel
CPT/HCPCS: 10081; 62110; 62900; 70005

== ENCOUNTER → 2019-04-21 | Outpatient (CLI) | payer OTHER, BC | LOC: HYPER 02-24 08:55 | DX: I70.232 Atherosclerosis of native arteries of right leg with ulceration of calf (principal); L97.212 Non-pressure chronic ulcer of right calf with fat layer exposed; T63.391D Toxic effect of venom of other spider, accidental (unintentional), subsequent encounter; I70.202 Unspecified atherosclerosis of native arteries of extremities, left leg; B95.62 Methicillin resistant Staphylococcus aureus infection as the cause of diseases classified elsewhere; I50.20 Unspecified systolic (congestive) heart failure; I25.10 Atherosclerotic heart disease of native coronary artery without angina pectoris; I87.2 Venous insufficiency (chronic) (peripheral); K21.9 Gastro-esophageal reflux disease without esophagitis; R60.0 Localized edema; M19.90 Unspecified osteoarthritis, unspecified site; Z87.891 Personal history of nicotine dependence ==

== ENCOUNTER → 2019-05-03 | Outpatient (CLI) | payer OTHER, BC | LOC: HYPER 07:40 | DX: L97.212 Non-pressure chronic ulcer of right calf with fat layer exposed (principal); I73.9 Peripheral vascular disease, unspecified; L03.115 Cellulitis of right lower limb; I50.20 Unspecified systolic (congestive) heart failure; B95.62 Methicillin resistant Staphylococcus aureus infection as the cause of diseases classified elsewhere; I25.10 Atherosclerotic heart disease of native coronary artery without angina pectoris; K21.9 Gastro-esophageal reflux disease without esophagitis; M19.90 Unspecified osteoarthritis, unspecified site; R60.0 Localized edema; Z87.891 Personal history of nicotine dependence ==

== ENCOUNTER → 2019-05-18 | Outpatient (CLI) | payer OTHER, BC | LOC: HYPER 09:31 | DX: I70.232 Atherosclerosis of native arteries of right leg with ulceration of calf (principal); L97.212 Non-pressure chronic ulcer of right calf with fat layer exposed; T63.301D Toxic effect of unspecified spider venom, accidental (unintentional), subsequent encounter; S50.312D Abrasion of left elbow, subsequent encounter; L03.115 Cellulitis of right lower limb; I70.202 Unspecified atherosclerosis of native arteries of extremities, left leg; B95.62 Methicillin resistant Staphylococcus aureus infection as the cause of diseases classified elsewhere; R60.0 Localized edema; I50.20 Unspecified systolic (congestive) heart failure; I25.10 Atherosclerotic heart disease of native coronary artery without angina pectoris; K21.9 Gastro-esophageal reflux disease without esophagitis; M19.90 Unspecified osteoarthritis, unspecified site; Z87.891 Personal history of nicotine dependence; W19.XXXD Unspecified fall, subsequent encounter ==

== ENCOUNTER → 2019-06-02 | Outpatient (CLI) | payer OTHER, BC | LOC: HYPER 08:22 | DX: L97.212 Non-pressure chronic ulcer of right calf with fat layer exposed (principal); T63.301D Toxic effect of unspecified spider venom, accidental (unintentional), subsequent encounter; L03.115 Cellulitis of right lower limb; I70.203 Unspecified atherosclerosis of native arteries of extremities, bilateral legs; I50.20 Unspecified systolic (congestive) heart failure; I25.10 Atherosclerotic heart disease of native coronary artery without angina pectoris; K21.9 Gastro-esophageal reflux disease without esophagitis; M19.90 Unspecified osteoarthritis, unspecified site; B95.62 Methicillin resistant Staphylococcus aureus infection as the cause of diseases classified elsewhere; R60.0 Localized edema; Z87.891 Personal history of nicotine dependence ==

== ENCOUNTER → 2019-06-15 | Outpatient (CLI) | payer OTHER, BC | LOC: HYPER 08:54 | DX: L97.212 Non-pressure chronic ulcer of right calf with fat layer exposed (principal); I73.9 Peripheral vascular disease, unspecified; I50.20 Unspecified systolic (congestive) heart failure; I25.10 Atherosclerotic heart disease of native coronary artery without angina pectoris; L03.115 Cellulitis of right lower limb; M19.90 Unspecified osteoarthritis, unspecified site; K21.9 Gastro-esophageal reflux disease without esophagitis; B95.62 Methicillin resistant Staphylococcus aureus infection as the cause of diseases classified elsewhere; R60.0 Localized edema; Z87.891 Personal history of nicotine dependence ==

== ENCOUNTER → 2019-07-12 | Outpatient (CLI) | payer OTHER, BC | LOC: HYPER 14:15 | DX: L97.212 Non-pressure chronic ulcer of right calf with fat layer exposed (principal); I73.9 Peripheral vascular disease, unspecified; S50.312D Abrasion of left elbow, subsequent encounter; L03.115 Cellulitis of right lower limb; I50.20 Unspecified systolic (congestive) heart failure; I25.10 Atherosclerotic heart disease of native coronary artery without angina pectoris; K21.9 Gastro-esophageal reflux disease without esophagitis; M19.90 Unspecified osteoarthritis, unspecified site; B95.62 Methicillin resistant Staphylococcus aureus infection as the cause of diseases classified elsewhere; R60.0 Localized edema; Z87.891 Personal history of nicotine dependence; T63.301D Toxic effect of unspecified spider venom, accidental (unintentional), subsequent encounter; X58.XXXD Exposure to other specified factors, subsequent encounter ==

== ENCOUNTER → 2019-08-02 | Outpatient (CLI) | payer OTHER, BC | LOC: HYPER 08:50 | DX: I83.012 Varicose veins of right lower extremity with ulcer of calf (principal); I70.232 Atherosclerosis of native arteries of right leg with ulceration of calf; L97.212 Non-pressure chronic ulcer of right calf with fat layer exposed; I70.202 Unspecified atherosclerosis of native arteries of extremities, left leg; S50.312D Abrasion of left elbow, subsequent encounter; T63.301D Toxic effect of unspecified spider venom, accidental (unintentional), subsequent encounter; L03.115 Cellulitis of right lower limb; R60.0 Localized edema; I50.20 Unspecified systolic (congestive) heart failure; B95.62 Methicillin resistant Staphylococcus aureus infection as the cause of diseases classified elsewhere; I87.8 Other specified disorders of veins; I25.10 Atherosclerotic heart disease of native coronary artery without angina pectoris; K21.9 Gastro-esophageal reflux disease without esophagitis; M19.90 Unspecified osteoarthritis, unspecified site; Z87.891 Personal history of nicotine dependence; W19.XXXD Unspecified fall, subsequent encounter ==

== ENCOUNTER → 2019-08-10 | Outpatient (CLI) | payer OTHER, BC | LOC: HYPER 13:05 | DX: I83.012 Varicose veins of right lower extremity with ulcer of calf (principal); I70.232 Atherosclerosis of native arteries of right leg with ulceration of calf; L97.212 Non-pressure chronic ulcer of right calf with fat layer exposed; T63.301D Toxic effect of unspecified spider venom, accidental (unintentional), subsequent encounter; L03.115 Cellulitis of right lower limb; L84 Corns and callosities; I70.202 Unspecified atherosclerosis of native arteries of extremities, left leg; B95.62 Methicillin resistant Staphylococcus aureus infection as the cause of diseases classified elsewhere; R60.0 Localized edema; I50.20 Unspecified systolic (congestive) heart failure; I25.10 Atherosclerotic heart disease of native coronary artery without angina pectoris; K21.9 Gastro-esophageal reflux disease without esophagitis; M19.90 Unspecified osteoarthritis, unspecified site; Z87.891 Personal history of nicotine dependence ==

== ENCOUNTER → 2019-08-31 | Outpatient (CLI) | payer OTHER, BC | LOC: HYPER 11:46 | DX: T63.301D Toxic effect of unspecified spider venom, accidental (unintentional), subsequent encounter (principal); I70.232 Atherosclerosis of native arteries of right leg with ulceration of calf; I83.012 Varicose veins of right lower extremity with ulcer of calf; L97.212 Non-pressure chronic ulcer of right calf with fat layer exposed; B95.62 Methicillin resistant Staphylococcus aureus infection as the cause of diseases classified elsewhere; I70.202 Unspecified atherosclerosis of native arteries of extremities, left leg; I50.20 Unspecified systolic (congestive) heart failure; I25.10 Atherosclerotic heart disease of native coronary artery without angina pectoris; K21.9 Gastro-esophageal reflux disease without esophagitis; M19.90 Unspecified osteoarthritis, unspecified site; Z95.5 Presence of coronary angioplasty implant and graft; Z87.891 Personal history of nicotine dependence; Z79.82 Long term (current) use of aspirin ==

== ENCOUNTER → 2019-09-14 | Outpatient (CLI) | payer OTHER, BC | LOC: HYPER 14:13 | DX: T63.301D Toxic effect of unspecified spider venom, accidental (unintentional), subsequent encounter (principal); L97.212 Non-pressure chronic ulcer of right calf with fat layer exposed; L03.115 Cellulitis of right lower limb; I70.232 Atherosclerosis of native arteries of right leg with ulceration of calf; I83.012 Varicose veins of right lower extremity with ulcer of calf; I70.202 Unspecified atherosclerosis of native arteries of extremities, left leg; B95.62 Methicillin resistant Staphylococcus aureus infection as the cause of diseases classified elsewhere; I50.20 Unspecified systolic (congestive) heart failure; I25.10 Atherosclerotic heart disease of native coronary artery without angina pectoris; K21.9 Gastro-esophageal reflux disease without esophagitis; M19.90 Unspecified osteoarthritis, unspecified site; Z87.891 Personal history of nicotine dependence; Z79.01 Long term (current) use of anticoagulants; Z95.5 Presence of coronary angioplasty implant and graft ==

== ENCOUNTER → 2019-10-05 | Outpatient (CLI) | payer OTHER, BC | LOC: HYPER 13:54 | DX: T63.301D Toxic effect of unspecified spider venom, accidental (unintentional), subsequent encounter (principal); I70.232 Atherosclerosis of native arteries of right leg with ulceration of calf; I83.012 Varicose veins of right lower extremity with ulcer of calf; L97.212 Non-pressure chronic ulcer of right calf with fat layer exposed; L03.115 Cellulitis of right lower limb; B95.62 Methicillin resistant Staphylococcus aureus infection as the cause of diseases classified elsewhere; I70.202 Unspecified atherosclerosis of native arteries of extremities, left leg; I50.20 Unspecified systolic (congestive) heart failure; I25.10 Atherosclerotic heart disease of native coronary artery without angina pectoris; K21.9 Gastro-esophageal reflux disease without esophagitis; M19.90 Unspecified osteoarthritis, unspecified site; Z87.891 Personal history of nicotine dependence; Z79.82 Long term (current) use of aspirin ==

== ENCOUNTER 2019-10-23 06:52 | Emergency (ER) | payer OTHER, BC ==
[~2019-10-23] VITALS: Ht 152.4 cm; Wt 51.7 kg
[~2019-10-23 06:52] MED LIST changes: -BUPROPION HCL150 M1 PO; +BUPROPION XL150 MG PO
[2019-10-23 07:18] LABS: HEMATOCRIT 36.4 % (37.0-47.0); HEMOGLOBIN 12.3 gm/dL (12.0-15.0); MCH 31.2 pg (26.0-34.0); MCHC 33.7 g/dL (28.0-37.0); MCV 92.5 fL (80.0-100.0); RBC 3.93 mil/uL (4.20-5.00); RDW 16.7 % (10.5-14.5); WBC 8.1 thou/uL (4.0-11.0)
[2019-10-23 07:29] LABS: CALCIUM 9.4 mg/dL (8.5-10.1); CREATININE 0.9 mg/dL (0.6-1.0); POTASSIUM 3.3 mmol/L (3.5-5.1)
[2019-10-23 07:31] LABS: URINE BILIRUBIN NEGATIVE (Negative); URINE BLOOD 2+ (Negative); URINE CLARITY CLEAR; URINE COLOR YELLOW; URINE GLUCOSE-RANDOM* NEGATIVE (Negative); URINE KETONES 1+ (Negative); URINE LEUKOCYTES-REFLEX NEGATIVE (Negative); URINE NITRITE-REFLEX NEGATIVE (Negative); URINE PROTEIN (DIPSTICK) 3+ (Negative); URINE UROBILINOGEN 0.2 E.U./dl (0.2-1.0)
[2019-10-23 07:35] LABS: ALBUMIN 3.3 g/dL (3.4-5.0); DIRECT BILIRUBIN 0.3 mg/dL (<0.1-0.2); TOTAL BILIRUBIN 1.3 mg/dL (<0.1-1.0); TOTAL PROTEIN 6.7 g/dL (6.4-8.2)
[2019-10-23 07:45] LABS: AMORPHOUS URATES Few /LPF (None Seen); CASTS None Seen /LPF (None Seen); SQUAMOUS None Seen /LPF (0-3)
[2019-10-23 07:46] LABS: BACTERIA-REFLEX 1-9 Few /HPF (None Seen); URINE RBC None Seen /HPF (0-2); URINE WBC-REFLEX None Seen /HPF (0-5)
[2019-10-23] MEDS ORDERED: ZPAK PO ×2 (11:07→11:22)
[2019-10-23 11:30] VITALS: BP 153/81
== END 2019-10-23 13:03 | disposition home or self-care (01) ==
LOC: ER 06:52
PROVIDERS: Emergency Medicine
DX: E86.0 Dehydration (principal); K59.00 Constipation, unspecified; R06.00 Dyspnea, unspecified; R11.0 Nausea; F17.210 Nicotine dependence, cigarettes, uncomplicated; I11.0 Hypertensive heart disease with heart failure; I50.9 Heart failure, unspecified; J44.9 Chronic obstructive pulmonary disease, unspecified; M19.90 Unspecified osteoarthritis, unspecified site; I25.10 Atherosclerotic heart disease of native coronary artery without angina pectoris; Z79.899 Other long term (current) drug therapy; Z90.710 Acquired absence of both cervix and uterus; Z90.89 Acquired absence of other organs; Z88.1 Allergy status to other antibiotic agents

== ENCOUNTER 2019-10-24 16:04 | Inpatient (IN) | payer OTHER, BC ==
[~2019-10-24] VITALS: Ht 162.6 cm; Wt 51.9 kg
[~2019-10-24 16:04] MED LIST changes: +ZPAK PO
[2019-10-24 16:05] VITALS: BP 174/74
[2019-10-24 16:45] LABS: HEMATOCRIT 38.8 % (37.0-47.0); HEMOGLOBIN 12.9 gm/dL (12.0-15.0); MCH 30.8 pg (26.0-34.0); MCHC 33.3 g/dL (28.0-37.0); MCV 92.5 fL (80.0-100.0); PLATELET COUNT 202 thou/uL (150-400); RDW 16.5 % (10.5-14.5); WBC 8.2 thou/uL (4.0-11.0)
[2019-10-24 16:53] LABS: CALCIUM 9.1 mg/dL (8.5-10.1); CREATININE 0.8 mg/dL (0.6-1.0); POTASSIUM 3.4 mmol/L (3.5-5.1)
[2019-10-24 17:03] LABS: ALBUMIN 2.9 g/dL (3.4-5.0); DIRECT BILIRUBIN 0.2 mg/dL (<0.1-0.2); TOTAL BILIRUBIN 0.9 mg/dL (<0.1-1.0); TOTAL PROTEIN 6.6 g/dL (6.4-8.2); TROPONIN-I 0.2 ng/mL (<0.06)
[2019-10-24 17:05] LABS: ABSOLUTE NEUTROPHILS 7.1 thou/uL (1.4-8.2)
[2019-10-24 17:06] LABS: ANISOCYTOSIS 1+; PLATELET ESTIMATE NORMAL
[2019-10-24 17:51] LABS: URINE BILIRUBIN 1+ (Negative); URINE BLOOD 3+ (Negative); URINE CLARITY SL CLOUDY; URINE COLOR YELLOW; URINE GLUCOSE-RANDOM* NEGATIVE (Negative); URINE KETONES 2+ (Negative); URINE LEUKOCYTES-REFLEX NEGATIVE (Negative); URINE NITRITE-REFLEX NEGATIVE (Negative); URINE PROTEIN (DIPSTICK) 3+ (Negative); URINE SPECIFIC GRAVITY >= 1.030 (1.005-1.035); URINE UROBILINOGEN 0.2 E.U./dl (0.2-1.0)
[2019-10-24 17:53] LABS: ICTOTEST (BILI CONFIRMATORY) Negative (Negative)
[2019-10-24 18:04] LABS: COARSE GRANULAR CASTS 0-3 Few /LPF (None Seen); FINE GRANULAR CASTS 0-3 Few /LPF (None Seen); HYALINE CASTS 0-3 Few /LPF (None Seen)
[2019-10-24 18:05] LABS: AMORPHOUS URATES Moderate /LPF (None Seen); SQUAMOUS 4-10 Moderate /LPF (0-3)
[2019-10-24 18:06] LABS: URINE RBC 3-10 Few /HPF (0-2); URINE WBC-REFLEX 0-5 Rare /HPF (0-5)
[2019-10-24 18:07] LABS: BACTERIA-REFLEX 1-9 Few /HPF (None Seen); MUCUS 0-3 Light strn/LPF (None Seen)
[2019-10-24 18:23] LABS: BE(vivo) -3.2 mmol/L (-2 to +3); HCO3 19.3 mmol/L (22.0-26.0); PCO2 27.5 mmHg (35.0-45.0); pH 7.463 (7.360-7.450); sO2 96.7 % (92.0-98.0)
[2019-10-24 18:34] VITALS: BP 169/76
[2019-10-24 18:57] VITALS: BP 168/71
[2019-10-24 20:00] VITALS: BP 168/67
[2019-10-25 00:31] VITALS: BP 151/65
[2019-10-25 01:43] LABS: HEMOGLOBIN 12.7 gm/dL (12.0-15.0); MCH 30.9 pg (26.0-34.0); MCHC 33.5 g/dL (28.0-37.0); MCV 92.4 fL (80.0-100.0); RBC 4.11 mil/uL (4.20-5.00); RDW 16.8 % (10.5-14.5); WBC 6.1 thou/uL (4.0-11.0)
[2019-10-25 01:59] LABS: ALBUMIN 2.6 g/dL (3.4-5.0); CALCIUM 8.5 mg/dL (8.5-10.1); MAGNESIUM 1.9 mg/dL (1.8-2.4); POTASSIUM 3.2 mmol/L (3.5-5.1); TOTAL BILIRUBIN 0.8 mg/dL (<0.1-1.0); TOTAL PROTEIN 5.8 g/dL (6.4-8.2)
[2019-10-25 02:20] LABS: APTT 26.5 Seconds (24.5-32.8)
--- NOTE | 2019-10-25 02:42 | NUR ---
PT ARRIVED AT THE UNIT AT AROUND 1915, PT IS ALERT AND ORIENTED TO SELF, PLEASANTLY CONFUSED, ADMISSION ASSESSMENT DONE AND CHARTED, SR ON THE MONITOR, COMPLAINED OF ABDOMINAL PAIN AND SHOULDER PAIN, MEDICATED PRN, PT SLEEPING AT THIS TIME WITH NO S/S OFV DISTRESS, WILL CONTINUE TO MONITOR
--- NOTE | 2019-10-25 04:42 | NUR ---
PT IS AWAKE,ALERT AND ORIENTED TO PERASON, LAYING IN BED, COMPALAINS OF ABDOMINAL AND RIGHT SHOULDER PAIN, PRN MEDS GIVEN, DENIES CHEST PAIN OR SOB, SR ON THE MONITOR, NO FURTHER COMPLAINS, WILL CONTINUE TO MONITOR
[2019-10-25 05:12] VITALS: BP 157/57
--- NOTE | 2019-10-25 07:56 | EKG ---
[facility] [address] ELECTROCARDIOGRAM REPORT Name: THIAGO SMITH Room #: 215-P ADM IN M.R.#: [id number] Admission: 10/24/19 Attend Phys: Grant Dumont MD Discharge: Date of : 40 Report #: [id number] THIS REPORT FOR: cc: Durga Brambila MD, Neal A. MD Lundgren,Gus Stallings MD [facility] ~ THIS REPORT FOR: //name// [facility] ED Test Date: 2019-10-24 Test Time: 16:24:39 Pat Name: THIAGO SMITH Department: Room: [facility] Gender: F Auger Supervisor: LAWRENCE : 1940 Requested By: Kingston Field Order Number: [id number] MD: Gus Linton Measurements Intervals [place] Rate: 87 P: 68 GA: 203 QRS: -16 QRSD: 99 T: 12 QT: 396 QTc: 477 Interpretive Statements Sinus rhythm Poor R wave progression Inferior infarct, old Compared to ECG 02/25/2019 07:24:32 Inferior Q waves are more prominent Electronically Signed On 10-25-2019 7:55:34 CDT by Gus Linton [email or web address] <ELECTRONICALLY SIGNED> By: Gus Linton MD, [facility] 10/25/19 0755 1624 1624 Gus Linton MD, [facility] /EPI
[2019-10-25 08:09] VITALS: BP 171/74
--- NOTE | 2019-10-25 08:13 | EKG ---
[facility] [place] [address] ELECTROCARDIOGRAM REPORT Name: THIAGO SMITH Room #: 215-P ADM IN M.R.#: [id number] Admission: 10/24/19 Attend Phys: Grant Dumont MD Discharge: Date of : 40 Report #: [id number] THIS REPORT FOR: cc: Durga Brambila MD, Neal A. MD Lundgren,Gus Stallings MD [facility] ~ THIS REPORT FOR: //name// [facility] Test Date: 2019-10-25 Test Time: 07:11:44 Pat Name: THIAGO SMITH Department: Room: 215 P Gender: F Stunner And Shackler: Xuan TAFOYA : 1940 Requested By: Grant Dumont Order Number: [id number] MD: Gus Linton Measurements Intervals [place] Rate: 70 P: 20 WV: 169 QRS: -8 QRSD: 99 T: 6 QT: 496 QTc: 536 Interpretive Statements Sinus rhythm Possible inferior infarct, old Prolonged QT interval Compared to ECG 02/25/2019 07:24:32 Inferior Q waves are less prominent Electronically Signed On 10-25-2019 8:12:17 CDT by Gus Linton [email or web address] <ELECTRONICALLY SIGNED> By: Gus Linton MD, [facility] 10/25/19811 0 0 Gus Linton MD, [facility] /EPI
--- NOTE | 2019-10-25 13:24 | 2DMMODE ---
[facility] [place] [address] 2 D/M-MODE ECHOCARDIOGRAM Name: THIAGO SMITH Room #: 215-P ADM IN M.R.#: [id number] Admission: 10/24/19 Attend Phys: Grant Dumont MD Discharge: Date of : 40 Report #: [id number] THIS REPORT FOR: cc: Durga Brambila MD, Neal A. MD Park, Jin S. MD ~ APPROVED REPORT Study performed: 10/25/2019 11:53:43 EXAM: Comprehensive 2D, Doppler, and color-flow Echocardiogram Patient Location: Bedside Room #: 215 Status: routine BSA: 1.54 HR: 70 bpm BP: 171/74 mmHg Rhythm: NSR Other Information Study Quality: Adequate 2D Dimensions RVDd: 34.09 mm IVSd: 10.60 (7-11mm) LVOT Diam: 17.86 (18-24mm) LVDd: 41.68 mm PWd: 11.77 (7-11mm) Ascending Ao: 26.00 (22-36mm) LVDs: 30.23 (25-40mm) Aortic Root: 26.90 mm IVC: 17.00 mm Volumes Left Atrial Volume (Systole) Single Plane 4CH: 60.36 mL Single Plane 2CH: 46.19 mL LA ESV Index: 39.00 mL/m2 Aortic Valve AoV Peak Jasbir.: 1.55 m/s AO Peak Gr.: 9.88 mmHg LVOT Max P.93 mmHg LVOT Max V: 0.99 m/s EVAN Vmax: 1.61 cm2 AI Vmax: 4.25 m/s AI Christian: 2.47 m/s2 AI PHT: 499.01 ms [facility] [address] [place] [address] 2 D/M-MODE ECHOCARDIOGRAM Name: THIAGO SMITH Room #: 215-P [facility] IN [facility].#: [id number] Admission: 10/24/19 Attend Phys: Grant Dumont MD Discharge: Date of : 40 Report #: [id number] Mitral Valve E/A Ratio: 0.6 MV Decel. Time: 306.44 ms MV E Max Jasbir.: 0.54 m/s MV A Jasbir.: 0.84 m/s MV PHT: 88.87 ms IVRT: 134.95 ms Pulmonary Valve PV Peak Jasbir.: 0.99 m/s PV Peak Gr.: 3.93 mmHg Pulmonary Vein P Vein S: 0.33 m/s P Vein A: 0.34 m/s P Vein D: 0.29 m/s P Vein A Dur.: 134.9 msec P Vein S/D Ratio: 1.14 Tricuspid Valve TR Peak Jasbir.: 2.76 m/s RAP Estimate: 5.00 mmHg TR Peak Gr.: 30.55 mmHg PA Pressure: 36.00 mmHg Left Ventricle The left ventricle is normal size. There is normal LV segmental wall motion. Mild concentric left ventricular hypertrophy. The left ventricular systolic function is normal. The left ventricular ejection fraction is within the normal range. LVEF is 55-60%. Mild diastolic dysfunction is present (impaired relaxation pattern). Right Ventricle The right ventricle is normal size. The right ventricular systolic function is normal. Atria Left atrium is mildly dilated. The right atrium size is normal. Aortic Valve Aortic valve is mildly thickened but has adequate excursion. Mild to moderate aortic regurgitation. There is no aortic valvular stenosis. Mitral Valve Mild mitral annular calcification. Mild mitral regurgitation. No evidence of mitral valve stenosis. [facility] [address] [place] [address] 2 D/M-MODE ECHOCARDIOGRAM Name: THIAGO SMITH Room #: 215-P [facility] IN .R.#: [id number] Admission: 10/24/19 Attend Phys: Grant Dumont MD Discharge: Date of : 40 Report #: [id number] Tricuspid Valve The tricuspid valve is normal in structure. Trace tricuspid regurgitation. PAP is estimated at 36 mmHg. Pulmonic Valve Pulmonic valve is not well visualized. Trace pulmonic regurgitation. Great Vessels The aortic root is normal in size. IVC is normal in size and collapses >50% with inspiration. Pericardium There is no pericardial effusion. <Conclusion> The left ventricle is normal size. Mild concentric left ventricular hypertrophy. The left ventricular systolic function is normal. Mild diastolic dysfunction is present (impaired relaxation pattern). The right ventricle is normal size. Left atrium is mildly dilated. Mild to moderate aortic regurgitation. Mild mitral regurgitation. Trace tricuspid regurgitation. PAP is estimated at 36 mmHg. <ELECTRONICALLY SIGNED> By: Tavon Griffin MD 10/25/19 1323 22 132 Tavon Griffin MD /INF
--- NOTE | 2019-10-25 15:02 | NUR ---
Patient admits with AMS. Sp with son patient resides at home with s/o. All needs on one level. She uses a wc in the home. She is able to transfer herself to/from . She has caregiver 4 hours a day M-F provate dty. Patient with hx of Adrien care and rehab stay at [facility] and [facility]. Son reports patient would be agreeable to and C if needed at [place]. Therapy evals in process. Son reports patient rec outpatient infusions and wants medical team to be aware. Updated RN
--- NOTE | 2019-10-25 15:39 | NUR ---
ASSUMED CARE AT SHIFT CHANGE, ASSESSMENT DOCUMENTED. C/O PAPIN TO LT SHOULDER AND LLE, REPOSITIONED AND MEDICATED NEEDED. BP WAS ELEVATED THIS MORNING, BP MORNING MEDS GIVEN EARLY, AND BP IMPROVEMENT NOTED, SEE VS FLOW SHEET. WD CARE CONSULT COMPLETED BY WD CARE TEAM. K+ REPLACED PER ORDERS AND WILL TO MONITOR. AND WILL CONTINUE WITH POC.
[2019-10-25 16:00] VITALS: BP 143/58
[2019-10-25 19:47] VITALS: BP 147/3
[2019-10-26 04:01] VITALS: BP 150/50
[2019-10-26 06:22] LABS: HEMATOCRIT 32.3 % (37.0-47.0); MCH 31.3 pg (26.0-34.0); MCHC 33.2 g/dL (28.0-37.0); MCV 94.3 fL (80.0-100.0); RBC 3.42 mil/uL (4.20-5.00); RDW 16.8 % (10.5-14.5); WBC 5.9 thou/uL (4.0-11.0)
[2019-10-26 06:24] LABS: HEMOGLOBIN 10.7 gm/dL (12.0-15.0)
[2019-10-26 06:42] LABS: ALBUMIN 2.3 g/dL (3.4-5.0); CALCIUM 7.8 mg/dL (8.5-10.1); CREATININE 0.8 mg/dL (0.6-1.0); POTASSIUM 3.8 mmol/L (3.5-5.1); TOTAL BILIRUBIN 0.4 mg/dL (<0.1-1.0); TOTAL PROTEIN 5.1 g/dL (6.4-8.2)
--- NOTE | 2019-10-26 07:29 | NUR ---
ALERT,FORGETFUL.PAIN WELL CONTROLLED WITH TRAMADOL.REPOSITIONED Q2 HOURS AND NEEDED.NPO SINCE MIDNIGHT FOR A POSSIBLE PROCEDURE TODAY.MONITOR SHOWS SR.POC CONTINUED.
[2019-10-26 08:00] VITALS: BP 165/59
[2019-10-26 08:05] VITALS: BP 165/59
[2019-10-26 12:00] VITALS: BP 147/61
--- NOTE | 2019-10-26 13:35 | NUR ---
PT CARE ASSUMED APPROXIMATELY 0700. PT ASSESSMENT CHARTED. PT MEDICATIONS CHARTED. WOUND CAR PERFORMED. MRI COMPLETED. PT TO 436.
--- NOTE | 2019-10-26 13:54 | NUR ---
5n evaled and accepting. Sp with son Cuate, offered option of [facility] or 5n and Cuate agreeable to 5N once stable. updated phys.
[2019-10-26 14:17] VITALS: BP 145/49
--- NOTE | 2019-10-26 17:31 | NUR ---
VSS-AFEBRILE. LUNGS CLEAR/DIMINISHED IN ALL ZEPEDA BILATERALLY. 2LNC IN PLACE. ACCEPTED FOR THERAPY ON 5N. OOB WITH ASSIST X 1, CALLS APPROPRIATELY FOR ANY NEEDED ASSISTANCE.
[2019-10-26 19:10] VITALS: BP 145/41
--- NOTE | 2019-10-27 03:14 | NUR ---
ASSUMED CARE OF PT @1900 PT ASSESSED AT START OF SHIFT A7&OX4 FORGETFUL. IV INTACT AND FLUIDS INFUISING. PAIN MEDS GIVEN FOR NECK AND ABD PAIN SEE EMAR. PT REPOSITIONED FOR COMFORT FREQ. HAD X1 BM THIS SHIFT. FALL PREQ IN PLACE AND WILL CONT WITH POC TILL EOS.
[2019-10-27 03:20] VITALS: BP 164/48
[2019-10-27 06:42] LABS: ALBUMIN 2.2 g/dL (3.4-5.0); DIRECT BILIRUBIN 0.1 mg/dL (<0.1-0.2); TOTAL BILIRUBIN 0.5 mg/dL (<0.1-1.0); TOTAL PROTEIN 5.3 g/dL (6.4-8.2)
[2019-10-27 07:27] VITALS: BP 166/57
--- NOTE | 2019-10-27 08:35 | HC ---
[facility] [place] [address] CONSULTATION Name: THIAGO SMITH Room #: 436-P ADM IN M.R.#: [id number] Admission: 10/24/19 Attend Phys: Grant Dumont MD Discharge: Date of : 40 Report #: [id number] THIS REPORT FOR: cc: Durga Brambila MD, Neal A. MD Althoff, Jeffrey R. MD ~ CC: Tavon Dumont DATE OF SERVICE: 10/25/2019 CHIEF COMPLAINT: Ulcer, right lateral lower leg. HISTORY OF PRESENT ILLNESS: This is a 79-year-old female patient with whom I am familiar from previous wound care evaluation, has a chronic ulceration on her right lower leg that may have started several years ago as a consequence of a brown recluse spider bite. The patient is admitted to the hospital currently with some mild shortness of breath. She denies any complaints with pain in her leg. She feels things have been doing better. She denies pain or swelling. PAST MEDICAL HISTORY: Positive for history of coronary artery disease, COPD, congestive heart failure, chronic obstructive sleep apnea, depression, brain aneurysm, iron deficiency anemia, peripheral vascular disease, having had a stent in her leg in 11/2016. SOCIAL HISTORY: The patient is a former smoker. No alcohol use. FAMILY HISTORY: Positive for history of a cerebral aneurysm. MEDICATIONS: Include acetaminophen, AccuNeb, aspirin, atorvastatin, Zithromax, Wellbutrin, ceftriaxone, citalopram, losartan, Bystolic, ondansetron, Protonix, Silvadene cream, tramadol. ALLERGIES: SULINDAC, SALMETEROL, VANCOMYCIN, AND FLUTICASONE. REVIEW OF SYSTEMS: CONSTITUTIONAL: The patient denies fever, chills or weight loss. NEUROLOGICAL: The patient denies focal weakness, numbness or tingling. EYES: The patient denies visual changes, redness, or drainage. ENT: The patient denies earache, nasal drainage, sore throat. CARDIOVASCULAR: The patient denies chest pain, palpitations or diaphoresis. PULMONARY: The patient does complain of shortness of breath and orthopnea. GASTROINTESTINAL: The patient denies nausea, vomiting, diarrhea or abdominal pain. ORTHOPEDIC: The patient is aware of the ulceration on her right lower leg. [address] [address] CONSULTATION Name: THIAGO SMITH Campbell Room #: 436-P [facility] IN M.R.#: [id number] Admission: 10/24/19 Attend Phys: Grant Dumont MD Discharge: Date of : 40 Report #: [id number] Other systems in a 14-point review of systems are negative. PHYSICAL EXAMINATION: VITAL SIGNS: At this time include temperature 96.8, pulse 69, respiratory rate 18, blood pressure 171/74. GENERAL: This is a chronically ill-appearing female patient who appears to be in minimal distress. HEENT: Head normocephalic. Nose and throat are clear. NECK: Supple. LUNGS: Clear. HEART: Regular rhythm without murmur. ABDOMEN: Soft. Bowel sounds present. EXTREMITIES: Demonstrate skin is pink, warm and dry. Distal pulses are diminished. There is an ulceration on the right lateral leg that is covered with a dry thin crust that appears to be noninfected and nontender. CLINICAL IMPRESSION: 1. Chronic ulceration to the right lower leg may be originated with brown recluse spider bite, perhaps also compounded by underlying venous insufficiency. 2. Congestive heart failure. 3. Peripheral arterial disease, status post right anterior tibial artery stent in 2017. 4. Prior cerebrovascular accident. 5. Moderate protein-calorie malnutrition with albumin of 2.4. RECOMMENDATION: Recommend Xeroform and Kerlix to the right leg, elevation of the lower extremities. PT and OT as able and continuation of current medications. I appreciate being asked to see her in consultation. <ELECTRONICALLY SIGNED> By: Deyvi Hughes MD 10/27/19 0835 1538 1600 Deyvi Hughes MD /nt
[2019-10-27 15:14] LABS: HEMATOCRIT 29.9 % (37.0-47.0); HEMOGLOBIN 10.2 gm/dL (12.0-15.0); MCH 31.8 pg (26.0-34.0); MCV 93.4 fL (80.0-100.0); RBC 3.2 mil/uL (4.20-5.00); RDW 16.3 % (10.5-14.5); WBC 6.5 thou/uL (4.0-11.0)
[2019-10-27 15:30] LABS: CALCIUM 7.9 mg/dL (8.5-10.1); CREATININE 0.7 mg/dL (0.6-1.0); POTASSIUM 3.4 mmol/L (3.5-5.1)
--- NOTE | 2019-10-27 15:31 | NUR ---
CARE TEAM INDICATED THAT PT WILL LIKELY BE MEDICALLY STABLE TO DISHCARGE TO 5N THIS AFTERNOON. CM CALLED PT'S SON CRISTOFER AND HE IS AWARE AND AGREEABLE WITH ANTICIPATED DC TO 5N THIS DAY. REPORT TO BE CALLED TO . PLEASE CALL AND NOTIFY ELIZABETH [place] ONCE 5N ROOM IS ASSIGNED AND OF TIME OF TRANSFER.
--- NOTE | 2019-10-27 15:41 | NUR ---
ASSUMED CARE OF PT AT 0700. PT ALERT AND ORIENTED. C/O NECK PAIN. NO OTHER COMPLAINTS AT THIS TIME. PIV INFUSING WITHOUT COMPLICATIONS. TOLERATING PO FINE, VOIDING WITHOUT DIFFICULTY USING BEDPAN. NO BM TODAY. PLAN TO TRANSFER TO REHAB FLOOR WHEN ABLE. WILL CONTINUE TO MONITOR
[2019-10-27] MEDS ORDERED: ZITHROMAX500 MG PO (16:39)
[2019-10-27] MEDS ORDERED: SSD CREAM 1% 5050 GM TOP (16:39)
[2019-10-27] MEDS ORDERED: CEFUROXIME500 MG PO (16:39)
[2019-10-27 16:42] VITALS: BP 151/51
== END 2019-10-27 20:00 | DRG 280 ==
LOC: ER 16:04 → EROBS 18:09 → 4S 18:09 → 2N 18:09 → ENTRNSPT 10-26 12:58 → 4S 10-26 13:22
PROVIDERS: Emergency Medicine; Nurse Practitioner; ADMIT Internal Medicine
DX: I21.4 Non-ST elevation (NSTEMI) myocardial infarction (principal); J18.9 Pneumonia, unspecified organism; J96.01 Acute respiratory failure with hypoxia; G93.41 Metabolic encephalopathy; I50.32 Chronic diastolic (congestive) heart failure; L97.919 Non-pressure chronic ulcer of unspecified part of right lower leg with unspecified severity; E44.0 Moderate protein-calorie malnutrition; Z68.1 Body mass index [BMI] 19.9 or less, adult; I25.10 Atherosclerotic heart disease of native coronary artery without angina pectoris; J44.9 Chronic obstructive pulmonary disease, unspecified; G47.33 Obstructive sleep apnea (adult) (pediatric); M19.90 Unspecified osteoarthritis, unspecified site; F32.9 Major depressive disorder, single episode, unspecified; R41.0 Disorientation, unspecified; I73.9 Peripheral vascular disease, unspecified; G47.00 Insomnia, unspecified; I11.0 Hypertensive heart disease with heart failure; I87.2 Venous insufficiency (chronic) (peripheral); E53.8 Deficiency of other specified B group vitamins; M17.0 Bilateral primary osteoarthritis of knee; E87.6 Hypokalemia; E78.5 Hyperlipidemia, unspecified; K80.50 Calculus of bile duct without cholangitis or cholecystitis without obstruction; Z95.5 Presence of coronary angioplasty implant and graft; Z90.710 Acquired absence of both cervix and uterus; Z88.1 Allergy status to other antibiotic agents; Z88.8 Allergy status to other drugs, medicaments and biological substances; Z87.891 Personal history of nicotine dependence; Z95.820 Peripheral vascular angioplasty status with implants and grafts; Z86.73 Personal history of transient ischemic attack (TIA), and cerebral infarction without residual deficits; Z82.3 Family history of stroke; Z82.49 Family history of ischemic heart disease and other diseases of the circulatory system
CPT/HCPCS: 10081; 10100; 10102

== ENCOUNTER 2019-10-27 09:36 | Inpatient (IN) | payer OTHER, BC ==
[~2019-10-27] VITALS: Ht 152.4 cm; Wt 48.2 kg
[2019-10-27] MEDS ORDERED: CEFUROXIME500 MG PO (16:39)
[2019-10-27] MEDS ORDERED: ZITHROMAX500 MG PO (16:39)
[2019-10-27] MEDS ORDERED: SSD CREAM 1% 5050 GM TOP (16:39)
[2019-10-27 20:06] VITALS: BP 134/42
--- NOTE | 2019-10-28 02:13 | NUR ---
ADMITTED FROM 4S UNDER 'S CARE. AXOX4. RLE DRESSING C,D,I. GI DR MAN ORDERED 238G MIRALAX FOR CONSTIPATION. PT INITAILLY REFUSED IT. CALLED AND REPORTED. REALLY THINKS THAT ONLY MIRALAX WILL BE EFFECTIVE AT THIS TIME. SPOLE TO PT AGAIN. PT AGREEABLE TO TAKE IT SLOW. TOLERATING OK WITH SMEAR BM. NO S/S ACUTE DISTRESS NOTED OR REPORTED AT THIS TIME. WILL CONT TO MONITOR FOR ANY CHANGES IN CONDITION.
[2019-10-28 06:09] LABS: HEMATOCRIT 29.8 % (37.0-47.0); MCH 31.2 pg (26.0-34.0); MCHC 33.4 g/dL (28.0-37.0); MCV 93.5 fL (80.0-100.0); RBC 3.19 mil/uL (4.20-5.00); RDW 15.9 % (10.5-14.5); WBC 5.8 thou/uL (4.0-11.0)
[2019-10-28 06:15] LABS: CALCIUM 8.5 mg/dL (8.5-10.1); CREATININE 0.8 mg/dL (0.6-1.0); POTASSIUM 3.6 mmol/L (3.5-5.1)
[2019-10-28 08:00] VITALS: BP 138/58
--- NOTE | 2019-10-28 09:40 | NUR ---
Pt. reported having difficulty sleeping last night. She was slow to awaken for meds administered one at a time in between yogurt and Miralax in apple juice. Lungs with diminished sounds, heart with slightly irregular with an occasional beat. Pulses BUE and BLE present. Abdomen distended with discomfort upon light palpation. Has had two loose stools so far in shift. Says she has had rotator cuff injuries/pain--is not sure of their exact nature of origin. Is not able to reach and pull herself over to her side. She became engaged in conversation when discussing travels. Right leg dressing changed--does not look significantly different from the picture. Wound care procedure followed. Heels off loaded. Pills swallowed without difficulty.
--- NOTE | 2019-10-28 10:26 | NUR ---
cm tried x 2 to call pt in room, she working with therapy at these times. will cont following as needed for dc needs.
--- NOTE | 2019-10-28 19:26 | NUR ---
Total of 5 loose stools. Declined to follow order of 1 cup Miralax q 4 hours. She dreds getting on bedpan with diarrhea. Abdomen firm, tender to touch.
[2019-10-28 20:05] VITALS: BP 151/57
--- NOTE | 2019-10-29 04:05 | NUR ---
assumed care at approx 1900 evening 10/27. pt sitting up in bed at change of shift resting and watching tv. pt alert and oriented x4, appropriate and cooperative. pt took hs meds with water tolerating well. pt unable to fall asleep until late in evening however appears to be sleeping at present. bed alarm on and call light in reach. will continue to monitor.
--- NOTE | 2019-10-29 18:46 | NUR ---
ASSUMED CARE AT 0700, PT A&0 X 4 NO ACUTE DISTRESS DURING SHIFT. VSS O2 ON RA. PT C/O SHOULDER PAIN RELIEVED PRN TRAMADOL. CONTINENT OF B&B, SEVERAL LOOSE BM'S TODAY USED BSC AND BR. MEDS GIVEN PER ORDERS. BED IN LOWEST POSITION, CALL LIGHT WITHIN REACH, WILL CONTINUE TO MONITOR PER POC.
[2019-10-29 20:00] VITALS: BP 105/42
--- NOTE | 2019-10-30 02:46 | NUR ---
assumed care at approx 1900 evening 10/28. pt sitting up in bed at change of shift resting and watching tv. pt alert and oriented x4, appropriate and cooperative. assisted pt into w/c and to toilet to void. pt max assist and stated she was getting tired. pt took hs meds with applesauce tolerating well. pt given pain pill as ordered. pt sleeping better tonight than last night seems to be less anxious. bed alarm on and call light in reach. will continue to monitor.
[2019-10-30 04:38] LABS: ALBUMIN 2.1 g/dL (3.4-5.0); DIRECT BILIRUBIN 0.2 mg/dL (<0.1-0.2); TOTAL BILIRUBIN 0.7 mg/dL (<0.1-1.0); TOTAL PROTEIN 5.5 g/dL (6.4-8.2)
[2019-10-30 20:19] VITALS: BP 144/66
--- NOTE | 2019-10-30 20:37 | NUR ---
ASSUMED CARE OF PT AT 0700. PT IS A&OX4 AND VITAL SIGNS ARE STABLE. PT REPORTS PAIN TO BACK, LOWER EXTREMITIES, AND SHOULDERS. REPORTS THAT PAIN IS 3/10 AND IS REFUSING MEDICATIONS AT THIS TIME. PARTICIPATED WITH THERAPIES TODAY. RESTING IN BED, HR REGULAR, LUNG SOUNDS CLEAR IN ALL LOBES, BOWEL SOUNDS ACTIVE. FALL PRECAUTIONS IN PLACE, NURSING WILL CONTINUE TO MONITOR.
--- NOTE | 2019-10-30 23:45 | NUR ---
PT ASSESSMENT COMPLETED AND VSS. MEDS GIVEN ORDERED AND WELL TOLERATED. SLEEPING MEDICATION HELPFUL. ASST WITH REPOSITION SEVERAL TIMES FOR COMFORT. UP TO THE BSC WITH 2 ASST/GAIT/WALKER. VOIDING MODERATE AMOUNT OF YELLOW URINE. CALLING FREQUENTLY. ANXIOUS. PROVIDED MUCH EMOTIONAL SUPPORT. SLEEPING WELL. WILL CONTINUE TO MONITOR FREQUENTLY.
[2019-10-31 07:46] VITALS: BP 153/60
--- NOTE | 2019-10-31 08:14 | NUR ---
ASSUMED CARE AT 0700. PATIENT IS ALERT AND ORIENTED X4. PATIENT LIVIER, DIGITAL DATA ANALYST ARE EQUAL. LUNGS ARE CLEAR AND DEMINISHED. ABD IS SOFT WITH BSX4. UP TO THE BSC WITH ASSIST OF 2 STAFF, GAIT BELT AND WALKER. UP IN BED FOR MEALS. FALL AND SAFETY PROTOCOLS IN PLACE. C/O BILATERAL SHOULDER PAIN D/T ROTATOR CUFF PROBLEMS. MEDICATED WITH PRN PAIN MED. CONTINUES TO PROGRESS SLOWLY TOWARDS D/C GOALS. WILL CONTINUE TO MONITER.
[2019-10-31 20:52] VITALS: BP 143/64
--- NOTE | 2019-11-01 02:38 | NUR ---
patient aox4 makes needs known. patient needs maximum assistance with adl bed mobility,transfer and toileting. patient encouraged fluids. pain controlled this shift.patient uses a walker to pivot from bed to commode. call light and personal items within reach. patient in bed asleep at this time breathing regular and unlaboured
[2019-11-01 05:18] LABS: HEMATOCRIT 28.9 % (37.0-47.0); HEMOGLOBIN 9.9 gm/dL (12.0-15.0); MCH 31.7 pg (26.0-34.0); MCHC 34.1 g/dL (28.0-37.0); RBC 3.11 mil/uL (4.20-5.00); RDW 15.5 % (10.5-14.5); WBC 7.6 thou/uL (4.0-11.0)
[2019-11-01 05:35] LABS: CALCIUM 8.3 mg/dL (8.5-10.1); CREATININE 0.8 mg/dL (0.6-1.0); POTASSIUM 3.3 mmol/L (3.5-5.1)
[2019-11-01 07:15] VITALS: BP 133/54
--- NOTE | 2019-11-01 18:07 | NUR ---
ASSUMED CARE OF PT AT 0700. REPORTS SLEPT FAIR ALST NIGHT. PT IS A&OX4 AND VITAL SIGNS ARE STABLE ON 2L. PT REPORTS PAIN TO BACK, LOWER EXTREMITIES, AND SHOULDERS. REPORTS THAT PAIN IS 8/10 GAVE PRN TYLENOL. PT REQUESTS TO BE ON VOLTARENE GEL FOR HER CHRONIC ARTHRITIS. OBTAINED ORDERS. APPLIED VOLTERENE GEL THIS AFTERNOON. SHE SAID IT HELPS. REFUSES THE DOSE AT 1800. SHE SAID SHE WANTS TO PUT IN AT BEDTIME INSTEAD. PT WAS UP AND PARTICIPATED WITH THERAPIES TODAY. HAS POOR APPETITE. OFFERED DIFFERENT FOOD, PT REFUSES. MEDS TAKE WITH APPLE SAUCES. HAS SUPPORTIVE SON. CONT B&B. HAD 500CC DARK TIGRE. ENCOURAGED PT TO DRINK MORE. ASSISTED TO BSC. UP WITH MOD STAND PIVOT WITH WALKER. HAS GOOD BM THIS EVENING. FALL PRECAUTIONS IN PLACE, CALL LIGHT WITHIN REACH. CHECK FREQUENTLY FOR NEEDS AND SAFETY. WOUND CARE ON LEFT POSTERIOR CALF FROM SPIDER BITE DONE. WOUND NURSE SAID IT LOOKS BETTER STOPPED SILVERDENE CREAM. WILL GIVE REPORT TO NIGHT NURSE TO CONTINUE TO MONITOR.
[2019-11-01 20:04] VITALS: BP 155/70
--- NOTE | 2019-11-01 23:06 | NUR ---
pt care assumed at 1900 with pt asleep.pt is with assist to bedside commode with walker and gait with max assist.pt takes medication whole in apple sauce.pt care handed to another nurse at 2300
--- NOTE | 2019-11-01 23:33 | NUR ---
TOOK OVER CARE OF PT AT 2300 FROM OFF GOING NURSE. HOURLY ROUNDING. WILL CONTINUE TO MONITOR.
[2019-11-02 07:20] VITALS: BP 158/65
--- NOTE | 2019-11-02 10:57 | NUR ---
PATIENT REFUSING ALL BREATHING TREATMENTS, SHE STATES THAT THEY MAKE HER MOUTH HURT AND THAT SHE DOES NOT LIKE THEM, PLEASE CHANGE TO PRN
--- NOTE | 2019-11-02 12:50 | NUR ---
team meeting, recommendation: pt reported to therapy has home oxygen. discuss with son's that will need to be assistance at home, needs assistance with toilet transfers. dc 11/12/2019 HH ( pt, ot, st, and nursing ), she will needs assistance on weekends as well, prior to hospital she had 4 hrs m-f of private duty. will cont following as needed for dc needs.
[2019-11-02 19:35] VITALS: BP 150/49
--- NOTE | 2019-11-02 19:44 | NUR ---
ASSUMED CARE AT 0700, PT A&O X 4, NO ACUTE DISTRESS NOTED. VSS 02 ON RA, 2L VIA NC AT HS. PT DENIED ANY PAIN OR DISCOMFORT. TOLERATED MEDS WHOLE IN APPLESAUCE. PARTICIPATED IN JOSIAH THERAPIES. RESTING IN BED, CALL LIGHT WITHIN REACH, WILL CONTINUE TO MONITOR PER POC.
--- NOTE | 2019-11-03 02:57 | NUR ---
UP TO BSC WITH GAIT BELT AND WALKER AND MODERATE ASSIST WITH THE WALKER BEING THE MOST HELP TO HER. STATES EPIGASTRIC PAIN EVERY TIME SHE EATS DESPITE HER PROTONIX TWICE DAILY, APPRECIATES TRAMADOL.
[2019-11-03 08:34] VITALS: BP 151/60
--- NOTE | 2019-11-03 10:54 | NUR ---
ISAEL reviewed chart. Pt's discharge home with HH is anticipated for 11/11. ISAEL spoke with pt via phone to discuss HH provider. Pt states that she has used [facility] in the past and would like to use them again. Pt is aware of anticipated discharge timeframe. ISAEL faxed HH referral to [facility] and spoke with Bj in intake to notify of new HH referral. Pt was recently discharged from their service yesterday. ISAEL provided anticipated discharge date. Following to assist as needed with discharge planning.
--- NOTE | 2019-11-03 12:14 | NUR ---
patient still refusing all breathing tretaments, please change treatments to prn
--- NOTE | 2019-11-03 14:43 | NUR ---
ASSUMED CARES AT 0700. PT AWAKE, ALERT AND ORIENTED*4. C/O RIGHT SHOULDER AND EARLINE KNEE PAIN WITH ACTIVITY, VOLTAREN GEL APPLIED NEEDED. C/O EPIGASTRIC PAIN, GAS-X ORDERED ADMINISTERED ORDERED. WOUND ON RLE CLEANED AND DRESSING CHANGED. PICTURE TAKEN. PT UP WITH 1 MOD ASSIST, PIVOT TRANSFERS. PARTICIPATED IN ALL THERAPIES. Q1H VISUAL CHECK. CALL LIGHT WITHIN REACH. FALL PRECAUTIONS IN PLACE
[2019-11-03 20:00] VITALS: BP 141/57
--- NOTE | 2019-11-04 03:36 | NUR ---
Assumed pt care at 2300. Pt's A/OX4, VSS.Denies pain on assessment. Verbalized feeling reliefed from the Simethicone. Up with moderate assist,WC/GB. Continent of B&B,having small BMs. Drsg intact on RLE. Fall precautions in place,calls approp. Resting quietly w/o distress noted,will continue to monitor pt.
[2019-11-04 05:37] LABS: ALBUMIN 2.5 g/dL (3.4-5.0); DIRECT BILIRUBIN 0.2 mg/dL (<0.1-0.2); TOTAL BILIRUBIN 0.5 mg/dL (<0.1-1.0); TOTAL PROTEIN 6.5 g/dL (6.4-8.2)
[2019-11-04 08:00] VITALS: BP 124/74
--- NOTE | 2019-11-04 14:31 | NUR ---
Nutrition: Consult received related to "poor intake/food too peppery". Noted PO 25-50% past week. No recent weight change seen. Supplements provided are magic cup and beneprotein which documentation of refusals past 2 days. Pt sleeping soundly this afternoon and nsg requests RD not awaken. Will followup 4/3 for assessment.
--- NOTE | 2019-11-04 16:19 | NUR ---
ASSUMED CARE OF PT AT 1100. PT IS A&OX4 AND VITAL SIGNS ARE STABLE. PT REPORTS PAIN, MANAGED WTIH ORDERED TOPICAL MEDICATION, PARTICIPATED IN SCHEDULED THERAPIES. HR REGULAR, LUNG SOUNDS CLEAR IN ALL LOBES, BOWEL SOUNDS ACTIVE IN ALL QUADRANTS. DRESSING TO RLE CHANGED PER ORDERS. PT ON 2L O2 VIA NC PER ORDERS. FALL PRECAUTIONS IN PLACE, NURSING WILL CONTINUE TO MONITOR.
--- NOTE | 2019-11-04 18:39 | NUR ---
ASSUMED CARES AT 0700. PT AWAKE, ALERT AND ORIENTED*4. C/O EARLINE SHOUDLER AND BACK PAIN, VOLTAREN GEL ADMINISTERED ORDERED. C/O EPIGASTRIC PAIN AFTER MEALS, SIMETHICONE ADMINISTERED NEEDED. VITALS REMAIN STABLE RLE WOUND CLEANED AND DRESSING CHANGED. PT UP WITH 1 MIN-MOD ASSIST, GB AND WALKER AND TOLERATED WELL. Q1H VISUAL CHECKS. CALL LIGHT WITHIN REACH
[2019-11-04 19:16] VITALS: BP 133/51
--- NOTE | 2019-11-05 02:21 | NUR ---
TOOK OVER CARE OF PT AT 1900. PT ASSESSMENT DONE AND VSS. MEDS GIVEN AND WELL TOLERATED. FALL PRECAUTIONS IN PLACE. HOURLY ROUNDING DONE. CALL LIGHT IN REACH. WILL CONTINUE TO MONITOR.
[2019-11-05 08:00] VITALS: BP 162/64
--- NOTE | 2019-11-05 14:56 | NUR ---
ISAEL reviewed chart. Rehab team conference to be held on Friday afternoon. Plan is for pt to discharge home with [facility] on 11/11. Case mgmt is following to assist as needed with discharge planning.
--- NOTE | 2019-11-05 15:43 | H ---
[facility] [place] [address] HISTORY AND PHYSICAL Name: THIAGO SMITH Room #: 506-1 ADM IN M.R.#: [id number] Admission: 10/27/19 Attend Phys: Primitivo Valadez MD Discharge: Date of : 40 Report #: [id number] THIS REPORT FOR: cc: Durga Brambila MD, Neal A. MD Smithson,Primitivo Evans MD ~ CC: Primitivo Brambila DATE OF SERVICE: 10/27/2019 HISTORY OF PRESENT ILLNESS: The patient is a 79-year-old female who was originally admitted to [facility] on 10/24/2019 with acute mental status changes. She was diagnosed with acute community-acquired pneumonia with acute hypoxic respiratory failure and started on antibiotics. She was noted to have an elevated troponin. Cardiology did evaluate and did not feel that the elevated troponin was ischemic related and recommended further outpatient testing. She has some abdominal pain with elevated LFTs and underwent MRCP with GI evaluation and possibly passed stone. Recommendations for outpatient ERCP once pneumonia has resolved since the patient having no further GI symptoms at this time. She was diagnosed with an acute metabolic encephalopathy. She is noted to have significant functional mobility and ADL as well as cognitive issues. She has now been admitted for acute in-hospital inpatient rehabilitation. PAST MEDICAL HISTORY: Heart disease, hypertension, lung disease, vascular disease, small bowel AVMs, diverticulosis, GERD, severe degenerative arthritis, bilateral knees with genu valgus, and also has severe arthritis of both shoulders and has been premorbidly wheelchair bound. PAST SURGICAL HISTORY: Cardiac stents, renal stents, hysterectomy, ethmoidectomy, urethral sling, and hand surgeries. MEDICATIONS: Please see the full medication listing. ALLERGIES: Sulindac, vancomycin, fluticasone, and Solu-Medrol. SOCIAL HISTORY: has been living in a house with her boyfriend. She has 2 supportive sons. She was able to transfer from toileting to the wheelchair independently; has a caregiver 4 hours, Friday through Friday to assist with IADLs and bathing. REVIEW OF SYSTEMS: Denies any current chest pain, shortness of breath or abdominal discomfort. HABITS: No history of drug or alcohol abuse. She does have remote history of [facility] [address] [address] HISTORY AND PHYSICAL Name: THIAGO SMITH Room #: 506-1 ADM IN [facility].#: [id number] Admission: 10/27/19 Attend Phys: Primitivo Valadez MD Discharge: Date of : 40 Report #: [id number] smoking. REVIEW OF SYSTEMS: Further details, she has history of rotator cuff injuries and has the chronic knee pain, left worse than right. PHYSICAL EXAMINATION: GENERAL: She is a 79-year-old white female in obvious distress. VITAL SIGNS: Last recorded temperature 36.7, pulse 72, respirations 17, blood pressure 166/57 prior to rehabilitation admission. NEUROLOGIC: She is alert. There is some definite latency to her responses, but she will follow basic 1 step commands. Facies appeared symmetric. She has significant bilateral shoulder arthritis with limited active assisted range of motion. She tends to hold her arms adducted. She has better movement of the elbows, wrists, and hands, but again does have significant degenerative arthritis. Strength is probably a grade 3+/5. Lower extremities; she has significant genu valgus, left appears worse than right with significant arthritic changes of both knees. There is no focal calf swelling. I would grade her strength at probably a grade 3 to 3+. Tone appeared to be intact. CHEST: Had some diffuse breath sounds throughout. CARDIOVASCULAR: Sounded regular rate and rhythm. ABDOMEN: Bowel sounds positive, nontender. GENITOURINARY AND RECTAL: Deferred. ASSESSMENT: A 79-year-old white female with the following problem list: 1. Toxic metabolic encephalopathy. 2. Acute hypoxic respiratory failure. 3. Community-acquired pneumonia. 4. Abdominal pain with possible passed bile duct stone. 5. Premorbid wheelchair bound. 6. Severe arthritis of both shoulders and both knees. PLAN: The patient is being admitted for acute in-hospital inpatient rehabilitation. From a postadmission physician evaluation perspective, there are no relevant changes since the preadmission screening. Please see the above review of prior and current medical and functional conditions and comorbidities. Please see the patient's previous and current functional status. As far as risk of complications, the patient has multiple medical comorbidities as noted above. The initial plan of care involves the interdisciplinary acute inpatient rehabilitation program. Measurable functional goals would be for the patient to become modified independent with basic bed mobility and transfers or at least to the point where she can return back to the home setting with the part-time caregiver and her significant other involved. Her prognosis is reasonably good with estimated length of stay probably at least 7-14 days. Goal is also to improve her overall cognition with the toxic metabolic encephalopathy. Potential barriers would include her multiple medical comorbidities and decreased functional status. [facility] [address] [place] [address] HISTORY AND PHYSICAL Name: THIAGO SMITH Room #: 506-1 ADM IN M.R.#: [id number] Admission: 10/27/19 Attend Phys: Primitivo Valadez MD Discharge: Date of : 40 Report #: [id number] The patient meets diagnostic criteria for an acute in-hospital inpatient rehabilitation stay. She meets the medical necessity criteria. We will have the technology consultant physicians continue to follow. She does have the tolerance for therapies and has appropriate discharge goals back to the home setting. <ELECTRONICALLY SIGNED> By: Primitivo Valadez MD 11/05/19 1543 1402 [id number] Primitivo Valadez MD /[facility]
--- NOTE | 2019-11-05 19:59 | NUR ---
ASSUMED CARE OF PT AT 0700. PT IS A&OX4 AND VITAL SIGNS ARE STABLE. PT DID NOT CALL FOR MEDICATIONS APPROPRIATELY. WOUND TO RIGHT CALF CHANGED BY WOUND NURSE. PAIN MANAGED WITH TOPICAL MEDICATIONS PER ORDERS. FALL PRECAUTIONS IN PLACE AND NURSING WILL CONTINUE TO MONITOR.
[2019-11-05 20:00] VITALS: BP 99/48
--- NOTE | 2019-11-06 04:33 | NUR ---
assumed care at approx 1900 evening 11/04. pt sitting up in bed at change of shift resting. pt alert and oriented x4, appropriate and cooperative. pt given hs meds with applesauce tolerating well. pt appears to be sleeping off and on with hourly rounding checks. bed alarm on and call light in reach. will continue to monitor.
[2019-11-06 07:40] VITALS: BP 106/54
--- NOTE | 2019-11-06 18:34 | NUR ---
ASSUMED CARE AT 0700, PT A&O X 4 , ABLE TO MAKE NEEDS KNOWN. VSS O2 ON RA. PT C/O PAIN RELIEVED WITH JOSIAH AND PRN MEDS. ASSIST X 1 USING WHEELCHAIR. CONTINENT OF B&B, LAST BM 11/05/19. RESTING IN BED, CALL LIGHT WITHIN REACH, WILL CONTINUE TO MONITOR PER POC.
[2019-11-06 19:34] VITALS: BP 119/46
--- NOTE | 2019-11-07 04:54 | NUR ---
ASSUMED CARE AT APPROX 1900 EVENING 11/05. PT ALERT AND ORIENTED X4, CALM AND COOPERATIVE. PT UP TO BATHROOM WITH W/C TOLERATING WELL. PT GIVEN HS MEDS IN APPLESAUCE TOLERATING WELL. PT DOES NOT SLEEP WELL PREFERRING TO STAY UP AT NIGHT WATCHING TV AND LEAVES ALL LIGHTS ON. PT STATES SHE GENERALLY STAYS AWAKE AT NIGHT. BED ALARM ON AND CALL LIGHT IN REACH. WILL CONTINUE TO MONITOR.
[2019-11-07 08:00] VITALS: BP 149/67
--- NOTE | 2019-11-07 15:45 | NUR ---
ASSUMED CARES AT 0700. PT SLEEPY THIS AM, STATED THAT SHE DIDN'T SLEEP WELL LAST NOC. ORIENTED *4. C/O BACK AND EPIGASTRIC PAIN, VOLTAREN GEL APPLIED AND SIMETHICONE ADMINISTERED NEEDED. ABDOMEN SOFT AND ROUND, BS ACTIVE*4, LAST BM 11/04. FREQUENCY URINE OUTPUT OF 0-150CC AT A TIME NOTED, BLADDER SCAN AFTER VOIDING WAS 0. URINE IS LIGHT YELLOW, CLEAR WITH NO FOUL ODOR. WILL CONTINUE TO MONITOR. WOUND IN RLE CLEANED AND DRESSING CHANGED. PT UP WITH 1 MIN ASSIST, GB AND WALKER AND TOLERATED WELL. Q1H VISUAL CHECKS. CALL LIGHT WITHIN REACH. FALL PRECAUTIONS IN PLACE
[2019-11-07 19:43] VITALS: BP 105/45
--- NOTE | 2019-11-07 22:14 | NUR ---
TOOK OVER PT CARE AT 1900. ASSESSMENT DONE AND VSS. PT UP TO BR ON MY ARRIVAL VIA WC, PIVOTS TO TOILET. THEN WC TO BS, PIVOTS USING WALKER TO BED. TRYING TO HAVE A BOWEL MOVEMENT. NONE AT THIS TIME. MEDS GIVEN AND WELL TOLERATED. FALL PRECAUTIONS IN PLACE. SLEEPING ON/OFF OVERNIGHT. CALL LIGHT IN REACH. HOURLY ROUNDING DONE. WILL CONTINUE TO MONITOR.
[2019-11-08 07:56] VITALS: BP 117/46
--- NOTE | 2019-11-08 07:56 | NUR ---
ASSUMED CARE AT 0700. PATIENT IS ALERT AND ORIENTED X4. PATIENT LIVIER, CATALOGUE MAKER ARE EQUAL. C/O EARLINE SHOULDER PAIN. PATIENT IS UP WITH GAIT BELT, WALKER AND TO THE W/C TO USE THE BATHROOM TO VOID. LUNGS ARE CLEAR. ABD IS SOFT WITH BSXR4. UP IN THE W/C FOR BREAKFAST. TAKES MEDS WITH APPLESAUCE. FALL AND SAFETY PROTOCOLS IN PLACE. C/O GENERALIZED PAIN AND IN HER SHOULDERS. NIGHT NURSE MEDICATED PATIENT WITH PRN PAIN MED. CONTINUES TO PROGRESS TOWARDS D/C GOALS. WILL CONTINUE TO MONITER.
[2019-11-08 10:34] VITALS: BP 117/46
--- NOTE | 2019-11-08 14:05 | NUR ---
DRESSING CHANGED TO PATIENT'S RIGHT LEG ACCORDING TO PROTOCOL. PATIENT TOLERATED THE PROCEDURE WELL. WILL CONTINUE TO MONITER.
[2019-11-08 19:45] VITALS: BP 111/74
--- NOTE | 2019-11-09 05:24 | NUR ---
Assumed pt care at 1900. Pt is A/OX4, VSS.Up with AX1 WC/RW to the bathroom. C/o back pain, medicated per EMAR with relief reported. Continent of B&B. Dressing on RLE C/D/I. Fall precautions in place, calls approp for help. Resting quietly at this time w/o distress noted,will continue to monitor pt.
[2019-11-09 05:41] LABS: ABSOLUTE NEUTROPHILS 3.8 thou/uL (1.4-8.2); BASOPHILS 1.1 % (0.0-2.0); HEMATOCRIT 33.4 % (37.0-47.0); HEMOGLOBIN 10.9 gm/dL (12.0-15.0); LYMPHOCYTES 11.4 % (24.0-44.0); MCH 30.7 pg (26.0-34.0); MCHC 32.7 g/dL (28.0-37.0); MCV 93.6 fL (80.0-100.0); MONOCYTES 9.5 % (1.0-8.0); PLATELET COUNT 433 thou/uL (150-400); RBC 3.57 mil/uL (4.20-5.00); RDW 15.7 % (10.5-14.5)
[2019-11-09 06:10] LABS: CALCIUM 9.1 mg/dL (8.5-10.1); CREATININE 1.4 mg/dL (0.6-1.0); MAGNESIUM 2.4 mg/dL (1.8-2.4); POTASSIUM 4.5 mmol/L (3.5-5.1)
[2019-11-09 07:30] VITALS: BP 134/81
[2019-11-09 08:39] LABS: ALBUMIN 2.8 g/dL (3.4-5.0); DIRECT BILIRUBIN 0.1 mg/dL (<0.1-0.2); TOTAL BILIRUBIN 0.5 mg/dL (<0.1-1.0); TOTAL PROTEIN 7.2 g/dL (6.4-8.2)
--- NOTE | 2019-11-09 11:19 | NUR ---
ASSUMED CARE AT 0700, PT A&O X 4, NO ACUTE DISTRESS NOTED. VSS O2 ON RA. PT C/O BACK PAIN AND RECEIVED PRN TRAMADOL WITH ADEQUATE RELIEF. MEDS GIVEN PER ORDERS, PARTICIPATED WITH THERAPIES. CONTINENT OF B&B BM 11/08/19. RESTING IN CHAIR, CALL LIGHT WITHIN REACH, WILL CONTINUE TO MONITOR PER POC.
--- NOTE | 2019-11-09 13:58 | NUR ---
team meeting, recommendation dc 10th with [facility] (pt, ot, st, and nurse), will need assistance with pills and bills. cont private duty with increased number of hr and including weekend. pt sig other is not going to be able to assist her in home currently. will cont following as needed for dc needs.
[2019-11-09 19:45] VITALS: BP 107/50
--- NOTE | 2019-11-10 03:54 | NUR ---
Assumed pt care at 1900. A/OX4, VSS.Up with assist of 1 RW/WC to the bathroom w/o difficulties. C/o back pain medicated per EMAR with relief reported. Continent of B&B. PO intake encouraged verbalizes understanding. Fall precutions in place, resting quietly w/o distress oxygen in place at 2L/NC will continue to monitor pt.
[2019-11-10 08:00] VITALS: BP 120/47
--- NOTE | 2019-11-10 12:44 | NUR ---
ISAEL reviewed chart. Discharge home with [facility] is anticipated for Friday, 11/11. ISAEL spoke with Kindra in intake at [facility] to notify of anticipated discharge. Pt is on the scheduled to have start of care on Sat. 11/12. Pt's family will provide transportation home. Contact info for HH placed in pt's discharge summary. Following to assist as needed with discharge planning.
[2019-11-10 12:45] VITALS: BP 120/47
--- NOTE | 2019-11-10 15:14 | NUR ---
ASSUMED CARE AT 0700, PT A&O X 4, NO ACUTE DISTRESS DURING SHIFT. VSS O2 ON RA (PT WEARS 2L VIA NC AT HS). PT C/O PAIN AND RECEIVED PRN TYLENOL WITH ADEQUATE RELIEF. PARTICIPATED IN JOSIAH THERAPIES. MEDS GIVEN WHOLE IN APPLESAUCE. PT CONTINENT OF B&B DURING SHIFT LAST BM 11/08/19 PT ON JOSIAH MIRALAX. RESTING IN BED, CALL LIGHT WITHIN REACH, WILL CONTINUE TO MONITOR PER POC.
[2019-11-10 19:15] VITALS: BP 125/54
--- NOTE | 2019-11-11 02:58 | NUR ---
ASSUMED CARE AT APPROX 1900 EVENING 11/09. PT SITTING UP IN BED AT CHANGE OF SHIFT WATCHING TV. PT ALERT AND ORIENTED X4, CALM AND COOPERATIVE. PT TOOK HS MEDS WITH APPLESAUCE TOLERATING WELL. PT KEEPS TV AND ALL LIGHTS ON AT NIGHT AND RARELY SLEEPS. PT CALLING OUT SEVERAL TIMES IN NIGHT TO GO TO BATHROOM. PT WITH NO BM HOWEVER PASSING FLATUS. PT WORRIED SHE IS GOING TO HAVE ACCIDENT AND INSISTS ON W/C TO BATHROOM. 02 AT 2L PER N/C. PT GIVEN PAIN MED FOR C/O BACK AND KNEE PAIN. BED ALARM ON AND CALL LIGHT IN REACH. WILL CONTINUE TO MONITOR.
[2019-11-11 07:01] LABS: ABSOLUTE NEUTROPHILS 3.3 thou/uL (1.4-8.2); BASOPHILS 1.2 % (0.0-2.0); EOSINOPHILS 3.2 % (0.0-3.0); HEMATOCRIT 28.6 % (37.0-47.0); HEMOGLOBIN 9.7 gm/dL (12.0-15.0); LYMPHOCYTES 10.4 % (24.0-44.0); MCH 31.6 pg (26.0-34.0); MCHC 33.9 g/dL (28.0-37.0); MCV 93.3 fL (80.0-100.0); MONOCYTES 11.8 % (1.0-8.0); POLYS 73.4 % (36.0-66.0); RBC 3.07 mil/uL (4.20-5.00); RDW 15.7 % (10.5-14.5); WBC 4.5 thou/uL (4.0-11.0)
[2019-11-11 07:07] LABS: CALCIUM 9.2 mg/dL (8.5-10.1); CREATININE 1.1 mg/dL (0.6-1.0); MAGNESIUM 2.1 mg/dL (1.8-2.4); POTASSIUM 3.9 mmol/L (3.5-5.1)
[2019-11-11 07:22] LABS: PLATELET COUNT 343 thou/uL (150-400)
[2019-11-11 08:00] VITALS: BP 102/50
--- NOTE | 2019-11-11 15:37 | NUR ---
ASSUMED CARES AT 0700. PT AWAKE, ALERT AND ORIENTED*4. C/O SHOULDER PAIN, ACETAMINOPHEN ADMINISTERED AND VOLTAREN GEL APPLIED TO SHOULDER. VITALS REMAIN STABLE. WOULD ON RLE CLEANED AND DRESSING CHANGED. ABD SOFT AND ROUND, ACTIVE BS, LAST BM 11/08/19 ... MIRALAX AND MG CITRATE ADMIN PER ORDER. PT EATING 20-25% OF HER MEALS. Q1H VISUAL CHECKS. CALL LIGHT WITHIN REACH. FALL PRECAUTIONS IN PLACE
[2019-11-11 19:26] VITALS: BP 102/46
--- NOTE | 2019-11-11 23:08 | NUR ---
TOOK OVER PT CARE AT 1900. ASSESSMENT DONE AND VSS. MEDS GIVEN AND WELL TOLERATED. FALL PRECAUTIONS IN PLACE. HOURLY ROUNDING. CALL LIGHT IN REACH. WILL CONTINUE TO MONITOR.
[2019-11-12 08:30] VITALS: BP 120/47
[2019-11-12 08:40] VITALS: BP 120/47
[2019-11-12] MEDS ORDERED: SIMETHICON CHEW80 M1 PO (08:48)
[2019-11-12] MEDS ORDERED: MIRALAX17 GM PO (08:48)
[2019-11-12] MEDS ORDERED: VENTOLIN HFA 1818 GM INH (08:50)
[2019-11-12] MEDS ORDERED: VOLTAREN GEL 1100 G2 TOP (08:52)
[2019-11-12] MEDS ORDERED: BYSTOLIC10 MG PO (08:53)
[2019-11-12] MEDS ORDERED: LASIX 40 MG TAB40 M2 PO (08:53)
--- NOTE | 2019-11-12 11:06 | NUR ---
ASSUMED CARE AT 0700. PATIENT IS ALERT AND ORIENTED X4. PATIENT BARNHART. PATIENT IS UP WITH GAIT BELT, WALKER AND UP TO W/C TO BATHROOM. LUNGS ARE CLEAR. ABD IS SOFT WITH BSX4. UP TO THE BATHROOM TO VOID TIGRE COLORED URINE. UP IN W/C FOR BREAKFAST. FALL AND SAFETY PROTOCOLS IN PLACE. C/O MILD PAIN IN HER SHOULDERS AND LEFT KNEE. MEDICATED BY NIGHT NURSE WITH PRN PAIN MED. CONTINUES TO PROGRESS TOWARDS D/C GOALS. DRESSING CHANGED TO PATIENTS RIGHT LEG. PATIENT TOLERATED PROCEDURE. WELL. PLAN D/C LATER TODAY.
--- NOTE | 2019-11-12 11:09 | NUR ---
1030 D/C INSTRUCTIONS GIVEN TO PATIENT. PATIENT LEFT UNIT IN HER W/C AND BELONGINGS IN GOOD CONDTION. D/C'D TO [facility] WITH SON.
--- NOTE | 2019-11-12 12:34 | PLAN ---
[facility] [place] [address] REHAB UNIT PLAN OF CARE Name: THIAGO SMITH Room #: 506-1 DIS IN M.R.#: [id number] Admission: 10/27/19 Attend Phys: Primitivo Valadez MD Discharge: 11/12/19 Date of : 40 Report #: [id number] THIS REPORT FOR: //name// CC: Primitivo Brambila PROGRESS NOTE/OVERALL PLAN OF CARE The patient was seen in followup. She was in no distress. Alert. Temperature 98, pulse 81, respirations 18, blood pressure 151/57. No focal calf swelling. She has chronic bilateral knees, significant arthritis. She has been working in therapies with sit to stand transfers and min assist level. Bed mobility is mod assist. She was able to ambulate 3 feet min assist, front-wheeled walker. Occupational therapy, lower body dressing has been dependent. Speech therapy is working with her and she has severe memory deficits along with moderate cognitive deficits. ASSESSMENT: A 79-year-old female with the following problem list: 1. Encephalopathy, toxic metabolic. 2. Medical complexity with generalized debilitation. 3. Community-acquired pneumonia. 4. Acute hypoxic respiratory failure. 5. Abdominal pain with possible passed stone. 6. Chronic diastolic heart failure. 7. Chronic obstructive pulmonary disease. 8. Obstructive sleep apnea. 9. Hypertension. 10. Severe DJD of the knees. 11. History of bilateral rotator cuff injuries. PLAN: The overall plan of care is based on the preadmission screen, post-admission physician evaluation and information garnered from therapy assessments. 1. Estimated length of stay is probably at least 10 days to 2 weeks pending progress. 2. Medical prognosis is reasonably good. 3. Anticipated interventions includes the interdisciplinary acute inpatient rehabilitation program. 4. Anticipated functional outcomes would be for the patient to hopefully improve as far as her basic transfers, functional mobility, ADLs and cognition, so that she can return back to the home setting with her part-time caregiver assistance. 5. Discharge destination would be back home with the part-time assistance as noted above. She is living there with her boyfriend and the emergency department aide assistance. 6. Expected therapy by discipline includes PT, OT and speech, 1 hour per day, [address] [address] REHAB UNIT PLAN OF CARE Name: THIAGO SMITH Room #: 506-1 DIS IN [facility]#: [id number] Admission: 10/27/19 Attend Phys: Primitivo Valadez MD Discharge: 11/12/19 Date of : 40 Report #: [id number] each five days a week throughout the duration of the acute inpatient rehabilitation stay. <ELECTRONICALLY SIGNED> By: Primitivo Valadez MD 11/12/19 1234 [id number] [id number] Primitivo Valadez MD /nt
--- NOTE | 2019-11-12 14:34 | NUR ---
PT DISCHARGING TODAY TO HOME WITH [facility] FAXED DC ORDERS/SUMMARY SPOKE WITH MATEO IN INTAKE SHE RECEIVED DC ORDERS AND WILL NOTIFY PT TIME OF VISITS.
== END 2019-11-12 10:54 | disposition home health service (06) | DRG 91 ==
PROVIDERS: Hospitalist; Nurse Practitioner; ADMIT Physical Medicine & Rehabilitation; ATTEND Physical Medicine & Rehabilitation
DX: G92 Toxic encephalopathy (principal); J18.9 Pneumonia, unspecified organism; J96.01 Acute respiratory failure with hypoxia; I50.32 Chronic diastolic (congestive) heart failure; J44.0 Chronic obstructive pulmonary disease with (acute) lower respiratory infection; E44.0 Moderate protein-calorie malnutrition; L97.819 Non-pressure chronic ulcer of other part of right lower leg with unspecified severity; M17.0 Bilateral primary osteoarthritis of knee; K21.9 Gastro-esophageal reflux disease without esophagitis; M19.012 Primary osteoarthritis, left shoulder; M19.011 Primary osteoarthritis, right shoulder; R53.81 Other malaise; I11.0 Hypertensive heart disease with heart failure; G47.33 Obstructive sleep apnea (adult) (pediatric); E78.5 Hyperlipidemia, unspecified; I25.10 Atherosclerotic heart disease of native coronary artery without angina pectoris; F32.9 Major depressive disorder, single episode, unspecified; D64.9 Anemia, unspecified; I48.91 Unspecified atrial fibrillation; I73.9 Peripheral vascular disease, unspecified; Z99.3 Dependence on wheelchair; Z90.710 Acquired absence of both cervix and uterus; Z95.5 Presence of coronary angioplasty implant and graft; Z88.8 Allergy status to other drugs, medicaments and biological substances; Z87.891 Personal history of nicotine dependence; Z99.81 Dependence on supplemental oxygen; Z68.25 Body mass index [BMI] 25.0-25.9, adult; Z86.73 Personal history of transient ischemic attack (TIA), and cerebral infarction without residual deficits
CPT/HCPCS: 10112

== ENCOUNTER → 2020-05-03 | Outpatient (CLI) | payer OTHER, BC ==
[~2020-05-03] MED LIST changes: +CEFUROXIME500 MG PO; +SIMETHICON CHEW80 M1 PO; +SSD CREAM 1% 5050 GM TOP; +VENTOLIN HFA 1818 GM INH; +ZITHROMAX500 MG PO
== END ==
LOC: SJCVCIMAG 08:42
PROVIDERS: ATTEND Internal Medicine Cardiovascular Disease
DX: I70.203 Unspecified atherosclerosis of native arteries of extremities, bilateral legs (principal); K55.1 Chronic vascular disorders of intestine; I25.10 Atherosclerotic heart disease of native coronary artery without angina pectoris; I70.1 Atherosclerosis of renal artery; I65.23 Occlusion and stenosis of bilateral carotid arteries; E78.00 Pure hypercholesterolemia, unspecified; I10 Essential (primary) hypertension; Z79.899 Other long term (current) drug therapy; Z95.820 Peripheral vascular angioplasty status with implants and grafts; Z87.891 Personal history of nicotine dependence; Z86.79 Personal history of other diseases of the circulatory system; Z87.19 Personal history of other diseases of the digestive system

== ENCOUNTER → 2020-05-26 | Outpatient (CLI) | payer OTHER, BC | LOC: ULTRA 05-25 14:22 | PROVIDERS: ATTEND Family Medicine | DX: I65.23 Occlusion and stenosis of bilateral carotid arteries (principal) ==

== ENCOUNTER → 2020-08-03 | Outpatient (CLI) | payer OTHER, BC ==
[2020-08-03 13:10] VITALS: BP 110/59
--- NOTE | 2020-08-03 15:25 | NUR ---
ARRIVED IN WHEELCHAIR WITH SON. HERE FOR VENOFER INFUSION. IV STARTED AND GIVEN VENOFER ORDERED. HAS HAD IRON INFUSIONS IN THE PAST. TOLERATED WITHOUT ADVERSE REACTION. DC PER WHEELCHAIR WITH SON. TO RETURN NEXT WEEK FOR NEXT INFUSION.
== END ==
LOC: OPONC 09:00
PROVIDERS: ATTEND Family Medicine
DX: D50.9 Iron deficiency anemia, unspecified (principal); K29.81 Duodenitis with bleeding
CPT/HCPCS: 95000

== ENCOUNTER → 2020-08-08 | Outpatient (CLI) | payer OTHER, BC ==
[2020-08-08 12:52] LABS: HEMATOCRIT 25.3 % (37.0-47.0); HEMOGLOBIN 7.7 gm/dL (12.0-15.0); MCHC 30.5 g/dL (28.0-37.0); PLATELET COUNT 372 thou/uL (150-400); RBC 3.08 mil/uL (4.20-5.00)
[2020-08-08 12:54] VITALS: BP 112/40
[2020-08-08 13:50] VITALS: BP 102/38
[2020-08-08 13:56] LABS: ABSOLUTE NEUTROPHILS 5.2 thou/uL (1.4-8.2); PLATELET ESTIMATE NORMAL
--- NOTE | 2020-08-08 14:59 | NUR ---
IN FOR 2ND OF 5 VENOFER INFUSIONS FOR IRON DEFICIENCY ANEMIA. STATED FEELING TIRED ALL THE TIME AND SLEEPS ALOT. SLEPT THROUGHOUT INFUSION TODAY. CBC DRAWN. HGB 7.7. FAXED RESULTS TO DR. LONG. TOLERATED INFUSION WITHOUT INCIDENT. POST VITALS STABLE. TO RETURN ON FRIDAY FOR 3RD INFUSION. DISMISSED IN STABLE CONDITION.
== END ==
LOC: OPONC 11:08
PROVIDERS: ATTEND Family Medicine
DX: D50.9 Iron deficiency anemia, unspecified (principal); K29.81 Duodenitis with bleeding
CPT/HCPCS: 95000

== ENCOUNTER → 2020-08-11 | Outpatient (CLI) | payer OTHER, BC ==
[2020-08-11 12:20] VITALS: BP 113/27
[2020-08-11 13:10] VITALS: BP 118/43
--- NOTE | 2020-08-11 15:12 | NUR ---
IN FOR 3RD OF 5 VENOFER INFUSIONS FOR IRON DEFICIENCY ANEMIA. DENIED FEVER/CHILLS, NAUSEA, SOB. MILD COUGH NOTED. LUNGS CLEAR. IV PLACED IN LFA AND INFUSED VENOFER OVER 30 MINUTES. TOLERATED WELL. POST BLOOD PRESSURE STABLE. REMOVED IV AND DISMISSED IN STABLE CONDITION.
== END ==
LOC: OPONC 14:20
PROVIDERS: ATTEND Family Medicine
DX: D50.9 Iron deficiency anemia, unspecified (principal); K29.81 Duodenitis with bleeding
CPT/HCPCS: 95000

== ENCOUNTER → 2020-08-14 | Outpatient (CLI) | payer OTHER, BC ==
[2020-08-14 13:22] VITALS: BP 132/45
[2020-08-14 14:10] VITALS: BP 123/46
--- NOTE | 2020-08-14 14:15 | NUR ---
HERE FOR 4TH OF 5 VENOFER INFUSIONS. REPORTS TOLERATING ALL WELL BUT STATES NO NOTICEABLE CHANGE IN STRENGTH OR ENERGY. TOLERATED TODAY'S WITHOUT INCIDENT, VSS. DISMISSED IN STABLE CONDITION. SCHEDULED TO RETURN FOR FINAL INFUSION ON FRIDAY.
== END ==
LOC: OPONC 10:32
PROVIDERS: ATTEND Family Medicine
DX: D50.9 Iron deficiency anemia, unspecified (principal); K29.81 Duodenitis with bleeding
CPT/HCPCS: 95000

== ENCOUNTER → 2020-08-18 | Outpatient (CLI) | payer OTHER, BC ==
[2020-08-18 11:25] VITALS: BP 125/74
[2020-08-18 12:25] VITALS: BP 136/43
--- NOTE | 2020-08-18 13:07 | NUR ---
IN FOR LAST OF 5 VENOFER INFUSIONS FOR IRON DEFICIENCY ANEMIA. PATIENT STATED NO SIDE EFFECTS BUT DOESN'T FEEL ANY STRONGER YET. IV PLACED IN LFA AND INFUSED VENOFER OVER 30 MINUTES. TOLERATED WELL. POST BP GOOD. REMOVED IV AND DISMISSED IN STABLE CONDITION.
== END ==
LOC: OPONC 08:07
PROVIDERS: ATTEND Family Medicine
DX: D50.9 Iron deficiency anemia, unspecified (principal); K29.81 Duodenitis with bleeding
CPT/HCPCS: 95000

== ENCOUNTER → 2020-10-02 | Outpatient (CLI) | payer OTHER, BC | LOC: ULTRA 09-29 10:20 | PROVIDERS: ATTEND Family Medicine | DX: N28.1 Cyst of kidney, acquired (principal); N28.89 Other specified disorders of kidney and ureter ==

== ENCOUNTER 2020-10-10 21:07 | Inpatient (IN) | payer OTHER, BC ==
[~2020-10-10] VITALS: Ht 152.4 cm; Wt 55.1 kg
[2020-10-10 21:21] VITALS: BP 140/43
[2020-10-10] MEDS ORDERED: PREDNISONE 5 MG5 M1 PO (21:32)
[2020-10-10] MEDS ORDERED: TORSEMIDE20 MG PO (21:32)
[2020-10-10 22:06] LABS: ABSOLUTE NEUTROPHILS 6.2 thou/uL (1.4-8.2); BASOPHILS 0.9 % (0.0-2.0); EOSINOPHILS 0.3 % (0.0-3.0); HEMATOCRIT 27.2 % (37.0-47.0); HEMOGLOBIN 8.9 gm/dL (12.0-15.0); LYMPHOCYTES 3.4 % (24.0-44.0); MCH 30.9 pg (26.0-34.0); MCHC 32.8 g/dL (28.0-37.0); MCV 94.1 fL (80.0-100.0); MONOCYTES 5.3 % (1.0-8.0); PLATELET COUNT 367 thou/uL (150-400); POLYS 90.1 % (36.0-66.0); RBC 2.89 mil/uL (4.20-5.00); RDW 21.5 % (10.5-14.5); WBC 6.9 thou/uL (4.0-11.0)
[2020-10-10 22:43] LABS: ALBUMIN 2.7 g/dL (3.4-5.0); ANION GAP 12 mmol/L (7-16); CALCIUM 8.6 mg/dL (8.5-10.1); CHLORIDE 100 mmol/L (98-107); CO2 24 mmol/L (21-32); CREATININE 2.2 mg/dL (0.6-1.0); DIRECT BILIRUBIN < 0.1 mg/dL (<0.1-0.2); GLUCOSE 123 mg/dL (74-106); POTASSIUM 4.4 mmol/L (3.5-5.1); SGOT 19 U/L (15-37); SGPT 19 U/L (14-59); SODIUM 136 mmol/L (136-145); TOTAL BILIRUBIN 0.3 mg/dL (0.2-1.0); TOTAL PROTEIN 6.6 g/dL (6.4-8.2)
[2020-10-10 22:54] LABS: BUN 59 mg/dL (7-18)
[2020-10-10 22:59] LABS: URINE BILIRUBIN NEGATIVE (Negative); URINE BLOOD NEGATIVE (Negative); URINE CLARITY CLEAR; URINE COLOR YELLOW; URINE GLUCOSE-RANDOM* NEGATIVE (Negative); URINE KETONES NEGATIVE (Negative); URINE LEUKOCYTES-REFLEX NEGATIVE (Negative); URINE NITRITE-REFLEX NEGATIVE (Negative); URINE PROTEIN (DIPSTICK) NEGATIVE (Negative); URINE SPECIFIC GRAVITY 1.015 (1.005-1.035); URINE UROBILINOGEN 0.2 E.U./dl (0.2-1.0)
[2020-10-11 04:34] VITALS: BP 135/36
[2020-10-11 05:03] VITALS: BP 119/39
[2020-10-11 05:28] VITALS: BP 116/44
--- NOTE | 2020-10-11 07:15 | EKG ---
[address] [address] ELECTROCARDIOGRAM REPORT Name: THIAGO SMITH Room #: 213-P ADM IN M.R.#: [id number] Admission: 10/10/20 Attend Phys: Durga Brambila MD Discharge: Date of : 40 Report #: [id number] [facility] ED Test Date: 2020-10-10 Test Time: 22:03:42 Pat Name: THIAGO SMITH Department: Room: 213 Gender: F Pivot End Polisher: IVÁN : 1940 Requested By: Cristin Collins Order Number: [id number] MD: Luis Quezada Measurements Intervals [place] Rate: 69 P: 71 ND: 193 QRS: 2 QRSD: 94 T: 14 QT: 392 QTc: 420 Interpretive Statements Sinus rhythm Compared to ECG 10/25/2019 07:11:44 Myocardial infarct finding no longer present Prolonged QT interval no longer present Electronically Signed On 10-11-2020 7:15:12 [employer]AIL [employer]OUTE [employer]PER[employer] by Luis Quezada [email or web address] <ELECTRONICALLY SIGNED> By: Luis Quezada MD, [facility] 10/11/20 0715 02 02 Luis Quezada MD, FAC /EPI
[2020-10-11 07:45] VITALS: BP 109/55
--- NOTE | 2020-10-11 11:31 | NUR ---
PT TO VQ SCAN AT 1115.
--- NOTE | 2020-10-11 11:46 | NUR ---
Case opened to follow for dc planning. Pt is A&ox4 and familiar with cm role from previous admissions. She notes that she has hh per Adrien for RN,PT and OT and due to recent increased weakness she hired private duty caregiver Friday thru Friday 3-5hrs daily to assist with meal prep and adl's. She lives alone in her own home and functions at a w/c level, transfers indep and is able to walk from the doorway of the bathroom to the toliet and back on her own. She has a rwalker, cane and home o2 2lnc per [facility] as well as a w/c. She notes her arthritis has been worse in both shoulders and joleen her rt hand thus making her mobility worse this past week. She is also sob and elev d-dimer with VQ scan planned for this am. She is concerned about returning directly home at dc due to her functional decline and is interested in [facility] or [facility] for an intensive program. She was on 5N last year and has also been to [facility] OP SNF in the past but does not want to try them again. She is motivated and reports two supportive sons Abilio and Cuate. She does have DPOA documents in place if needed and her sons can provide a copy. The has her cell phone and navy diver at bedside and has updated her sons this am on our discussion. Will request Rehab eval, PT/OT and Covid testing as she has not been tested yet. Will follow along.
[2020-10-11 12:00] VITALS: BP 118/48
--- NOTE | 2020-10-11 14:54 | 2DMMODE ---
[facility] [place] [address] 2 D/M-MODE ECHOCARDIOGRAM Name: THIAGO SMITH Room #: 213-P ADM IN M.R.#: [id number] Admission: 10/10/20 Attend Phys: Durga Brambila MD Discharge: Date of : 40 Report #: [id number] REPORT FOR: cc: Durga Brambila MD, Neal A. MD Lammoglia, Francisco J. MD ~ APPROVED REPORT Study performed: 10/11/2020 13:50:40 EXAM: Comprehensive 2D, Doppler, and color-flow Echocardiogram Patient Location: Bedside Room #: 213 Status: routine BSA: 1.51 HR: 65 bpm BP: 109/55 mmHg Rhythm: NSR Indications Swelling, chest pain. Hx: COPD, CHF. 2D Dimensions RVDd: 38.65 mm IVSd: 9.64 (7-11mm) LVOT Diam: 18.72 (18-24mm) LVDd: 42.34 mm PWd: 9.78 (7-11mm) LVDs: 28.00 (25-40mm) Left Atrium: 32.33 (27-40mm) Aortic Root: 30.64 mm Volumes Left Atrial Volume (Systole) Single Plane 4CH: 71.30 mL Single Plane 2CH: 64.54 mL LA ESV Index: 48.00 mL/m2 Aortic Valve AoV Peak Jasbir.: 1.81 m/s AO Peak Gr.: 13.13 mmHg LVOT Max P.22 mmHg LVOT Max V: 1.25 m/s EVAN Vmax: 1.89 cm2 AI Vmax: 3.92 m/s AI Glascock: 2.14 m/s2 [facility] [place] [address] 2 D/M-MODE ECHOCARDIOGRAM Name: LUISTHIAGO Campbell Room #: 213-P [facility] IN [facility].#: [id number] Admission: 10/10/20 Attend Phys: Durga Brambila, Discharge: Date of : 40 Report #: [id number] AI PHT: 530.87 ms Mitral Valve E/A Ratio: 1.3 MV Decel. Time: 212.45 ms MV E Max Jasbir.: 0.96 m/s MV A Jasbir.: 0.75 m/s MV PHT: 61.61 ms IVRT: 78.43 ms Pulmonary Vein P Vein S: 0.69 m/s P Vein A: 0.30 m/s P Vein D: 0.50 m/s P Vein A Dur.: 124.6 msec P Vein S/D Ratio: 1.38 Tricuspid Valve TR Peak Jasbir.: 2.60 m/s RAP Estimate: 5.00 mmHg TR Peak Gr.: 27.02 mmHg PA Pressure: 32.00 mmHg Left Ventricle The left ventricle is normal size. There is normal LV segmental wall motion. There is normal left ventricular wall thickness. Left ventricular systolic function is normal. LVEF is 55-60%. Moderate diastolic dysfunction is present. Right Ventricle The right ventricle is normal size. The right ventricular systolic function is normal. Atria Left atrium is moderately dilated. The right atrium size is normal. Aortic Valve The aortic valve is normal in structure. Mild aortic regurgitation. There is no aortic valvular stenosis. Mitral Valve The mitral valve is normal in structure. Mild to moderate mitral regurgitation. No evidence of mitral valve stenosis. Tricuspid Valve The tricuspid valve is normal in structure. Mild tricuspid regurgitation. Estimated PAP is 30-35mmHg. [facility] [address] [place] [address] 2 D/M-MODE ECHOCARDIOGRAM Name: THIAGO SMITH Room #: 213-P [facility] IN .R.#: [id number] Admission: 10/10/20 Attend Phys: Durga Brambila, Discharge: Date of : 40 Report #: [id number] Pulmonic Valve Pulmonic valve is not well visualized. Great Vessels The aortic root is normal in size. Ascending aorta is not well visualized. IVC is normal in size and collapses >50% with inspiration. Pericardium There is no pericardial effusion. There is no pleural effusion. <Conclusion> The left ventricle is normal size. LVEF is 55-60%. Left atrium is moderately dilated. The aortic valve is normal in structure. Mild aortic regurgitation. The mitral valve is normal in structure. Mild to moderate mitral regurgitation. The tricuspid valve is normal in structure. Mild tricuspid regurgitation. Estimated PAP is 30-35mmHg. Pulmonic valve is not well visualized. The aortic root is normal in size. There is no pericardial effusion. There is no pleural effusion. <ELECTRONICALLY SIGNED> By: Chele Chaparro MD 10/11/20 1453 [id number] [id number] Chele Chaparro MD /INF
--- NOTE | 2020-10-11 15:27 | NUR ---
PT ON SERVICE WITH JAZ MILLER FAXED CLINICAL UPDATE RECEIVED CONFIRMATION.
--- NOTE | 2020-10-11 16:15 | NUR ---
FAXED REFERRAL TO [facility] RECEIVED CONFIRMATION AND LEFT MSG WITH AYAKA IN ADM. FAXED REFERRAL TO [facility] RECEIVED CONFIRMATION AND LEFT MSG WITH LANDRY IN ADM.
[2020-10-11 20:15] VITALS: BP 118/47
[2020-10-12] VITALS (7 sets, daily range): BP systolic 108–138; BP diastolic 42–70
--- NOTE | 2020-10-12 03:57 | NUR ---
PT IS ALERT AND ORIENTED X4. LUNGS ARE DIMINISHED. ON 2LITERS OXYGEN. DENIES ANY COMPLAINTS OF PAIN. BRUISES NOTED ON ARMS. PROPS HER LEGS UP ON A PILLOW WEDGE TO SLEEP. USES BEDSIDE COMMODE TO VOID. COVID SWAB IS BACK SEE COMPUTER FOR RESULTS. WILL CONTINUE TO MONTIOR AND ASSESS PER NURSING AT THIS TIME. NO CONCERNS NOTED.
[2020-10-12 05:42] LABS: HEMATOCRIT 26.6 % (37.0-47.0); HEMOGLOBIN 8.8 gm/dL (12.0-15.0); MCH 31.4 pg (26.0-34.0); MCHC 33.2 g/dL (28.0-37.0); MCV 94.7 fL (80.0-100.0); RBC 2.81 mil/uL (4.20-5.00); RDW 21.5 % (10.5-14.5); WBC 4.3 thou/uL (4.0-11.0)
[2020-10-12 05:44] LABS: CALCIUM 8.8 mg/dL (8.5-10.1); CREATININE 2.2 mg/dL (0.6-1.0); POTASSIUM 3.9 mmol/L (3.5-5.1)
--- NOTE | 2020-10-12 10:38 | NUR ---
BLOOD TRANSFUSION WRONGFULLY DOCUMENTED, CHARTED "UNDONE"
--- NOTE | 2020-10-12 10:56 | NUR ---
PT ALERT THIS AM AND RESTING IN BED. C/O CHRONIC ARTHRITIC PAIN 03/13 PT WANTS TO BE ABLE TO GO HOME AND UNDERSTANDS SHE WILL NEED REHAB TO GAIN STRENTH BACK. PT STATES SHE USES [facility] AT HOME AND LIVES HOME ALONE. PLAN IS FOR PT TO GO TO AN ACUTE REHAB FACILITY AT THIS TIME. NO QUESTIONS OR CONCERNS AT THIS TIME, CALL LIGHT IN REACH, REFRESHMENTS PROVIDED.
--- NOTE | 2020-10-12 13:17 | NUR ---
FAXED PROGRESS NOTE, CONSULTATION, SPEECH THERAPY NOTES AND NEGATIVE COVID RESULTS TO [facility]. WILL CONFIRM WITH DIVYA/TRINA THAT SHE RECEIVED. [facility] P [phone]; FAX [phone]; DIVYA/DIANNA P [phone]
--- NOTE | 2020-10-12 14:15 | NUR ---
Case discussed with the care team. [facility] called needing updates. They were here to visit with the pt this am and can accept today or tomorrow. Taran is also evaling and talking with the pt and her son. Updates sent to [facility] per the dc traffic and transport planner. Pt getting iv steriods today. Likely dc tomorrow to acute rehab either [facility] or [facility]. She is discussing with her son Abilio. Will follow.
[2020-10-13 04:35] VITALS: BP 138/45
--- NOTE | 2020-10-13 05:05 | NUR ---
PT IN FOR PART OF SHIFT, UP TO BSC WITH X1 HEAVY ASSIST AND WALKER. ORIENTEDX4, MILDLY ANXIOUS WITH FREQUENT CONCERNS ABOUT ARM, COUGH AND WEAKNESS, FREQUENT REQUESTS. RESTING QUIETLY OFF AND ON. TRAMADOL FOR PAIN, LIDOCAINE CREAM FOR ARTHRITIS IN ARM.
[2020-10-13 07:30] VITALS: BP 127/55
[2020-10-13] MEDS ORDERED: RAYOS5 MG PO (07:46)
--- NOTE | 2020-10-13 11:05 | NUR ---
Case discussed with the care team. Followup visit made with the pt at bedside and son Abilio via phone. Pt decided to go to [facility] here vs going to [facility] or [facility]. all parties notified. [facility] can accept this afternoon after xrays of her cspine and shoulders. She is cheery and sitting eob this am. Nursing updated. Pt will go to rm 515. [facility] liason aware that pt has 2nd covid vaccine next and son will take if they can get her a pass.
[2020-10-13 11:20] VITALS: BP 121/44
[2020-10-13 11:40] VITALS: BP 139/82
--- NOTE | 2020-10-13 11:45 | NUR ---
COMMISSARY MANAGER SPOKE WITH PATIENT'S SON, ALBINO, ON 10/12/20. SON WAS INFORMED THAT PATIENT WAS A CANDIDATE FOR 5N AND HAD BEEN ACCEPTED IF PATIENT/FAMILY DECIDED FOR PATIENT TO ADMIT. SON ALSO INFORMED THAT SAY WOULD BE AROUND 2 WEEKS AND AT DISCHARGE PATIENT WOULD RETURN HOME. AT THAT TIME FAMILY WOULD NEED TO HAVE ARANGED INCREASED ASSISTANCE AT HOME FOR PATIENT TO BE SAFE. SUGGESTED POSSIBLY FORM 7AM TO BEDTIME. SON STATED THAT THEY ARE LOOKING INTO ASSISTED LIVING. DISCUSSED SNF OPTION A LONGER STAY THAT MIGHT HELP FAMILY MAKE ARRANGEMENTS AND BE READY FOR PATIENT TO EITHER RETURN HOME OR TO A NEW [facility] APARTMENT. OTHER CONCERNS OF SON ADDRESSED IN COVERSATION. PER ACUTE HOSPITAL D/C [facility] AND [facility] FAMILY HAS DECIDED THAT PATIENT SHOULD COME TO 5N AND THAT PHYSICIAN HAS COMPLETED D/C PAPERWORK. PATIENT TO ADMIT TO ACUTE REHAB TODAY PENDING MRI C-SPINE.
--- NOTE | 2020-10-13 16:09 | NUR ---
ASSESSMENT CHARTED. PT ALERT AND ORIENTED. VSS. PRN PAIN MED GIVEN WITH PARTIAL RELIEF. PARTICIPATED IN PT/OT. UP IN THE CHAIR THIS SHIFT. ORDERS GIVEN TO DISCHARGE PT 5 [facility]ECK REHABU. REPORT CALLED IN TO THE NURSE.
== END 2020-10-13 16:24 | DRG 553 ==
LOC: ER 21:07 → EROBS 23:18 → 2N 23:18
PROVIDERS: Emergency Medicine; ADMIT Family Medicine; ATTEND Family Medicine
DX: M06.4 Inflammatory polyarthropathy (principal); E43 Unspecified severe protein-calorie malnutrition; J96.00 Acute respiratory failure, unspecified whether with hypoxia or hypercapnia; N17.9 Acute kidney failure, unspecified; D64.9 Anemia, unspecified; J44.9 Chronic obstructive pulmonary disease, unspecified; I50.9 Heart failure, unspecified; I25.10 Atherosclerotic heart disease of native coronary artery without angina pectoris; G47.33 Obstructive sleep apnea (adult) (pediatric); F17.210 Nicotine dependence, cigarettes, uncomplicated; M17.0 Bilateral primary osteoarthritis of knee; M19.012 Primary osteoarthritis, left shoulder; R53.81 Other malaise; M19.011 Primary osteoarthritis, right shoulder; I70.1 Atherosclerosis of renal artery; I11.0 Hypertensive heart disease with heart failure; F32.9 Major depressive disorder, single episode, unspecified; Z95.820 Peripheral vascular angioplasty status with implants and grafts; Z95.5 Presence of coronary angioplasty implant and graft; Z90.710 Acquired absence of both cervix and uterus; Z88.1 Allergy status to other antibiotic agents; Z88.8 Allergy status to other drugs, medicaments and biological substances; Z79.82 Long term (current) use of aspirin; Z79.899 Other long term (current) drug therapy; Z82.3 Family history of stroke; Z82.49 Family history of ischemic heart disease and other diseases of the circulatory system; Z20.822 Contact with and (suspected) exposure to COVID-19
CPT/HCPCS: 10081

== ENCOUNTER 2020-10-13 11:00 | Inpatient (IN) | payer OTHER, BC ==
[~2020-10-13] VITALS: Ht 152.4 cm; Wt 47.5 kg
[~2020-10-13 11:00] MED LIST changes: +PREDNISONE 5 MG5 M1 PO; +RAYOS5 MG PO; +TORSEMIDE20 MG PO
[2020-10-13 18:02] VITALS: BP 108/54
--- NOTE | 2020-10-13 18:08 | NUR ---
80 YEAR OLD FEMALE ARRIVES TO FLOOR VIA WC ACCOMP NIED BY 2ND FLOOR NURSING STAFF AT APPROX 1650. WEARING 02 2 LITERS PER NC AND O2 SAT ON ADMIT 95 PERCENT. PT ADMITTED TO ACUTE CARE ON 10-10 WITH REPORTED RIGHT ARM PAIN AND WEAKNESS. WAS NOTED TO HAVE INCREASED SHORTNESS OF BREATH AND EDEMA AT TIME OF ACUTE CARE ADMIT. COOPERATIVE WITH ADMISSION PROCESS-STATES HAS BEEN HERE BEFORE ON REHAB AND ABLE TO IDENTIFY SPECIFIC GOALS FOR DC INCLUDING BEING ABLE TO GET SELF OUT OF BED AT HOME AND GET SELF TO BR AT HOME. DOES REPORT CHRONIC JOINT PAIN "ALL OVER" RATED AN 8 ON ADMIT-REFUSES OFERS OF ULTRAM STATING SHE WANTED TO TAKE THAT AT NIGHT ONLY. ALERT AND ORIENTED X3. SALINE LOCK TO LEFT WRIST COVERED WITH TRANSPARENT DRESSING-NO REDNESS,DRAINAGE NOTED-PT DENIES PAIN TO SITE. ORIENTED TO ROOM/UNIT. VS/CONSENTS OBTAINED-CURENTLY EATING SUPPER IN ROOM.
[2020-10-13 19:55] VITALS: BP 118/39
--- NOTE | 2020-10-14 01:35 | NUR ---
UP IN UNTIL 2300, PIVOT TRANSFER FROM TO [facility] WITH ONE PERSON ASSIST AND GAIT BELT. VOIDING WELL, THEN TO BED WITH MODERATE ASSIST, PATIENT CAREFUL TO KEEP CALL LIGHT AT LEVEL OF WAIST BECAUSE SHE HAS TROUBLE REACHING HIGHER OR LOWER DUE TO OLD ROTATOR CUFF INJURIES AND ARTHRITIS. STATES HAS HAD BM 10/13, BUT APPRECIATES MIRALAX EVERY DAY IN ORDER TO KEEP REGULAR.
[2020-10-14 04:49] LABS: HEMATOCRIT 25.8 % (37.0-47.0); HEMOGLOBIN 8.5 gm/dL (12.0-15.0); MCH 31.3 pg (26.0-34.0); MCHC 33.2 g/dL (28.0-37.0); MCV 94.3 fL (80.0-100.0); RBC 2.73 mil/uL (4.20-5.00); RDW 21.1 % (10.5-14.5); WBC 8.4 thou/uL (4.0-11.0)
[2020-10-14 05:07] LABS: CALCIUM 9.3 mg/dL (8.5-10.1); CREATININE 2.1 mg/dL (0.6-1.0); POTASSIUM 4.5 mmol/L (3.5-5.1)
[2020-10-14 07:15] VITALS: BP 110/44
--- NOTE | 2020-10-14 12:32 | NUR ---
Assumed pt care at 7am.Pt in bed sleeping till 0830.Assessment completed.vss. c/o neck pain rated 6/10.Tramadol po given with all am meds and well tolerated.Pt transfered with assist to for breakfast and later exercise with therapists.Pt now back in bed resting and prefered to eat lunch later. No further c/o will continue monitor.
[2020-10-14 21:15] VITALS: BP 114/42
--- NOTE | 2020-10-15 01:50 | NUR ---
ASSESSMENT COMPLETED. PT IS ALERT AND ORIENTED.REQUIRES MAX ASSIST X 1 TO THE BATHROOM. GIVEN TRAMADOL FOR PAIN.STABLE ON /. AFEBRILE.BLE ELEVATED, CALL LIGHT WITHIN REACH, FALL PREC IN PLACE.
[2020-10-15 08:10] VITALS: BP 140/44
--- NOTE | 2020-10-15 10:54 | NUR ---
ASSUMED CARE OF PT AT 0715. PT IS A&OX4. IS STABLE. IS ON 2.0 L OF O2/NC. DENIES PAIN IN LEFT SHOULDER. BRUISING NOTED TO BILAT ARMS. HAS BILAT LE EMEDA. IS UP WITH 1 ASSIST, GB, WALKER. FALL PRECAUTIONS & HOURLY ROUNDING CONTINUED THIS SHIFT. LABS & VITALS REVIWED. PT TO DC THIS AM WITH NEPHEW. NEPHEW IS HERE. HAS CONCERNS; WANTS TO BE SURE THAT SCRIPTS ARE SENT OVER TO CORRECT PHARMACY. CALL LIGHT WITHIN REACH. WILL CONTINUE TO MONITOR.
--- NOTE | 2020-10-15 15:18 | NUR ---
ASSUMED CARE OF PT AT 0715. PT IS A&OX4. IS ON 2.5L OF O2/NC. IS STABLE. HAS POLYARTHRITIC PAIN THAT IS BEING MANAGED WITH TOPICAL & ORAL PAIN MEDS. IS HAS RIGHT SIDED WEAKNESS. IS UP WITH MAX ASSIST X1, GB, STAND PIVOT TO CHAIR, BED, & BSC. FALL PRECAUTIONS & HOURLY ROUNDING CONTINUED THIS SHIFT. LABS & VITALS REVIEWED. PT BILAT LE ELEVATED WITH WEDGE. IS ABLE TO REPORSITION SELF SOME IN BED WITH MIN ASSIST. PT IS CURRENTLY IN BED WATCHING TV. CALL LIGHT WITHIN REACH. WILL CONTINUE TO MONITOR.
[2020-10-15 19:29] VITALS: BP 126/37
--- NOTE | 2020-10-16 02:34 | NUR ---
ASSUMED CARE APPROX 1919 EVENING 10/15. PT SITTING UP IN BED AT CHANGE OF SHIFT ALERT AND ORIENTED X4, APPROPRIATE AND COOPERATIVE. PT WITH LARGE WEDGE IN BED WITH LEGS ELEVATED. PT TOOK HS MEDS WITH ENSURE TOLERATING WELL. PT UP TO BSC WITH 1 ASSIST. PT APPEARS TO BE SLEEPING SOUNDLY. 02 AT 2L PER N/C. BED ALARM ON AND CALL LIGHT IN REACH. WILL CONTINUE TO MONITOR.
--- NOTE | 2020-10-16 08:39 | NUR ---
cm received phone call from son kain, " need to pick her up on friday for 2nd covid vaccine. have to leave [facility] by 1030 and then she will have appointment with her dentist about her denture hurting. i will let you know when that appointment will be"/kain. education that yajaira would pass on to dr and floorleader to see if this is ok. per MD they already know, kain to have training with therapy prior to taking her for appointment outside [facility] acute rehab. chart review. yajaira unable to visit pt, working with therapy. noted she lives alone in house, 2 steps then 13 steps inside. has cater hh in past and private duty 3 hours m-f. has wheel chair, cane, 4ww, stool riser and home oxygen from [facility]. will cont following as needed for dc needs.
[2020-10-16 09:30] VITALS: BP 115/30
--- NOTE | 2020-10-16 13:46 | NUR ---
ASSUMED CARE AT 0700. SLEPT FAIR. ALERT AND ORIENTATED. PAIN CONTROLLED WITH TYLENOL GIVEN EARLIER THIS MORNING. SHE IS ABLE TO GET UP AND PIVOT TO THE BSC. REFUSED MIRALAX, HAD SEVERAL LOOSE BM YESTERDAYAND ONE TODAY. COMPLAINED OF SORE MOUTH AND UNABLE TO CHEW HER FOOD. ST CHANGED HER DIET TO PUREED. ALSO REPORTED SHORT OF AIR EARLIER THIS MORNING AND IS ON 2L 02 AND REQ FOR BREATHING TREATMENT. SILVERDENE APPLIED TO R LAT LE FOR OLD SPIDER BITE. PARTICIPATING WITH THERAPY.
[2020-10-16 20:06] VITALS: BP 141/44
--- NOTE | 2020-10-16 21:58 | NUR ---
ASSESSED AT START OF SHIFT PT A&OX4 DENIES PAIN, N/V. EVENING MEDS GIVEN AND PT AISSATOU IT WELL. PT GETS SCHEDULED BREATHING TREATMENT AND ON 2L OF O2 AT NIGHT TIME. EARLINE LOWER EXT ELEVATED ON WEDGE PILLOWS. UPX1 TO THE BATHROOM. FALL PREC IN PLACE AND CALL LIGHT AT REACH WILL CONT TO MONITOR.
[2020-10-17 07:22] VITALS: BP 130/44
--- NOTE | 2020-10-17 13:15 | NUR ---
team meeting, reccommendation: checking ua. dc 25th home with hh and increased pd if goes home vs possible GIGI. she also has ramp at home and fww. has appointment dental and covid 2nd vaccine.
--- NOTE | 2020-10-17 13:30 | NUR ---
ASSUMED CARE AT 0700. DID NOT SLEEP WELL LAST NIGHT. GETTING UP SEVERAL TIMES TO USE THE BATHROOM TO VOID. DENIES ANY BURNING OR FOUL SMELLING URINE. UA ORDERED. HAD A BM TODAY. REPORTED PAIN IN HER NECK AND R SHOULDER AND TRAMADOL GIVEN WITH PARTIAL RELIEF AT 10. NYSTATIN/LIDOCAINE GIVEN WITH GOOD RELIEF TO SORE MOUTH. PLAN TO GO TO DENTIST ON FRIDAY AT 1600 AND TO GET HER 2ND COVID VACCINE ON FRIDAY AT [address] BANSAL AWARE.
[2020-10-17 19:15] VITALS: BP 114/47
[2020-10-17 23:37] LABS: URINE BILIRUBIN NEGATIVE (Negative); URINE BLOOD NEGATIVE (Negative); URINE CLARITY CLEAR; URINE COLOR YELLOW; URINE GLUCOSE-RANDOM* NEGATIVE (Negative); URINE KETONES NEGATIVE (Negative); URINE LEUKOCYTES-REFLEX TRACE (Negative); URINE NITRITE-REFLEX NEGATIVE (Negative); URINE PROTEIN (DIPSTICK) NEGATIVE (Negative); URINE SPECIFIC GRAVITY <= 1.005 (1.005-1.035); URINE UROBILINOGEN 0.2 E.U./dl (0.2-1.0)
--- NOTE | 2020-10-18 01:16 | NUR ---
O2 2L NOW AND PRN DURING THE DAY. HAS CHRONIC PAIN INCLUDING RIGHT ARM ROTATOR CUFF WHICH KEEPS HER FROM RAISING ARM. UP TO BSC WITH MINIMAL ASSIST. USES WEDGE TO ELEVATE LEGS. ABLE TO SWALLOW PILLS WHOLE
[2020-10-18 05:50] LABS: HEMATOCRIT 23.6 % (37.0-47.0); HEMOGLOBIN 7.7 gm/dL (12.0-15.0); MCH 30.8 pg (26.0-34.0); MCHC 32.7 g/dL (28.0-37.0); MCV 94.2 fL (80.0-100.0); PLATELET COUNT 336 thou/uL (150-400); RBC 2.51 mil/uL (4.20-5.00); RDW 20.8 % (10.5-14.5); WBC 5.9 thou/uL (4.0-11.0)
[2020-10-18 06:26] LABS: CALCIUM 8.8 mg/dL (8.5-10.1); CREATININE 1.5 mg/dL (0.6-1.0); MAGNESIUM 2.2 mg/dL (1.8-2.4); POTASSIUM 4.1 mmol/L (3.5-5.1)
[2020-10-18 07:26] VITALS: BP 132/39
--- NOTE | 2020-10-18 08:52 | NUR ---
ASSUMED CARE AT 0700. PATIENT IS ALERT AND ORIENTED X4. PATIENT HAS RIGHT ROTATOR CUFF INJURY FROM PREVIOUS FALL. PATIENT IS UP TO BSC WITH GAIT BELT AND WALKER AND ASSIST OF 1 STAFF. LUNGS ARE CLEAR AND DEMINISHED. ABD IS SOFT WITH BSX4. PATIENT CONTINUES TO HAVE OCCASIONAL URGENCY AND FREQ R/T VOIDING. U.A. WAS NEGATIVE FOR U.T.I. FALL AND SAFETY PROTOCOLS IN PLACE. C/O JOINT PAIN. MEDICATED WITH PRN PAIN MED. CONTINUES TO PROGESS TOWARDS D/C GOALS. WILL CONTINUE TO MONITER.
[2020-10-18 09:47] LABS: METAMYELOCYTES 1 %; MYELOCYTES 1 %
[2020-10-18 09:48] LABS: ANISOCYTOSIS 2+
--- NOTE | 2020-10-18 14:13 | NUR ---
FAXED REFERRAL TO [facility] SPOKE WITH ELLIOTT IN ADM SHE SAID THEY RECEIVED REFERRAL AND THE DON IS REVIEWING.
[2020-10-18 14:18] VITALS: BP 132/39
--- NOTE | 2020-10-18 16:09 | NUR ---
SPOKE WITH ELLIOTT IN ADM AT [facility] SHE WILL NOTIFY LINDY [facility]IRKLAND TO ARRANGE A BEDSIDE VISIT WITH PT.
[2020-10-18 19:35] VITALS: BP 100/44
--- NOTE | 2020-10-19 01:47 | NUR ---
UP IN WHEELCHAIR UNTIL 2229, MIIMAL ASSIST TO BSC FOR VOID. MELATONIN NOT TRAZADONE AT HS WITH A DOSE OF TRAMADOL FOR PAIN WITH HOPE OF SLEEPING WELL TONIGHT SEEMS TO BE WORKING WELL. BREATHING TREATMENT AT 2029 AND 2L PNC O/N
[2020-10-19 07:15] VITALS: BP 133/48
--- NOTE | 2020-10-19 12:40 | NUR ---
ASSUMED CARE AT 0700. SLEPT WELL WITH MELATONIN LAST NIGHT. PT REPORTED HAVING ONGOING NON PRODUCTIVE COUGH AND REQUESTED FOR MUCINEX. ON 2L 02 NEEDED. WHEEZES IN LOWER BASES, BREATHING TREATMENT GIVEN. PAIN IS CONTROLLED WITH TYLENOL AND REFUSED TO TAKE HER TRAMADOL AND SAYS IT MAKES HER SLEEPY. PT CALLED FOR HER AFTERNOON MEDS. GOING TO HER DENTIST APPT AT 330PM WITH SON TODAY. THERAPY WITH PT/OT/ST DONE EARLIER TODAY AND PARTICIPATED MUCH TOLERATED.
--- NOTE | 2020-10-19 13:29 | NUR ---
cm spoke with delgado jeddo of [facility] going to come out to visit with darien on around [phone]. cm received phone call from son kain who is wanting to talk his mom out on fri to tour [facility] prior to dc on . cm re-education that dr or STAND UP COMEDIAN has to approve outings, no rncm. cm passed on to STAND UP COMEDIAN and MD.
[2020-10-19 20:00] VITALS: BP 96/39
--- NOTE | 2020-10-20 02:47 | NUR ---
assumed care approx 1900 evening 10/19. pt sitting up in w/c at change of shift alert and oriented x4. assisted pt onto toilet and into bed at hs. 02 at 2L per n/c. pt assisted up to bsc after falling asleep. pt with wedge in bed wth legs elevated. pt appears to be sleeping soundly. bed alarm on and call light in reach. will continue to monitor.
[2020-10-20 07:37] VITALS: BP 130/44
--- NOTE | 2020-10-20 10:27 | NUR ---
ASSUMED CARE AT 0700. SLEPT FAIRLY WELL. ALERT AND ORIENTATED. PAIN MEDS GIVEN EARLIER WITH SOME RELIEF WITH TYLENOL. SHE REFUSED HER DIURETICS TODAY SHE IS GOING TO GO FOR HER 2ND VACCINE SHOT THIS MORNING. SON IS HERE TO PICK HER UP AND SON SIGNED THE THERAPEUTIC PASS. SHE PARTICIPATED WITH OT AND ST THIS MORNING. DIET CHANGED TO REGULAR FROM PUREED DIET. SHE GOT HER DENTURES READJUSTED WELL BY THE DENTIST YESTERDAY AND ABLE TO TOLERATE REGULAR FOOD. SHE ALSO REQUESTED FOR INHALER JUST TO KEEP PRN DURING HER APPT. PT REPORTED SHE USED HER 02 PRN AND EDUCATION GIVEN IF SHE DOES NOT REQ 02 AT ALL TIME, SHE CAN LEAVE THE UNIT WITHOUT 02. 02 SAT CHECKED ON RA WAS 93%. NO COMPLAINS OF SHORT OF AIR. PT LEFT UNIT AT 1100 ON ROOM AIR.
[2020-10-20 20:00] VITALS: BP 123/35
--- NOTE | 2020-10-21 03:39 | NUR ---
assumed care approx 1900 evening 10/20. pt alert and oriented x4, calm and cooperative. pt up to bsc to void with 1 assist in the night. pt took hs meds with applesauce tolerating well. pt appears to be sleeping soundly off and on. bed alarm on and call light in reach. will continue to monitor.
[2020-10-21 07:36] VITALS: BP 116/47
--- NOTE | 2020-10-21 08:19 | NUR ---
ASSUMED CARE AT 0700. PATIENT IS ALERT AND ORIENTED X4. PATIENT BARNHART'S. PATIENT IS UP WITH ASSIST OF 1 STAFF AND GAIT BELT. UP TO CHAIR FOR BREAKFAST. UP TO BSC TO VOID TIGRE COLORED URINE. LUNGS ARE CLEAR. ABD IS SOFT WITH BSX4. FALL AND SAFETY PROTOCOLS IN PLACE. C/O GENERALIZED PAIN. MEDICATED WITH PRN PAIN MED. CONTINUES TO PROGRESS TOWARDS D/C GOALS. WILL CONTINUE TO MONINTER.
--- NOTE | 2020-10-21 09:08 | NUR ---
ASSUMED CARE AT 0700. PATIENT IS ALERT AND ORIENTED X4. PATIENT BARNHART'S SLOWLY. LUNGS ARE CLEAR AND DEMINISHED. ABD IS SOFT WITH BSX4. UP TO BSC TO VOID TIGRE COLORED URINE. UP IN THE W/C FOR BREAKFAST. FALL AND SAFETY PROTOCOLS IN PLACE. C/O GENERALIZED PAIN. MEDICATED WITH PRN PAIN MED. CONTINUES TO PROGRESS TOWARDS D/C GOALS. WILL CONTINUE TO MONITER.
[2020-10-21 19:44] VITALS: BP 123/40
--- NOTE | 2020-10-22 01:25 | NUR ---
UP IN WC ALL EVENING, AWARE THAT SHE FORGOT TO ASK FOR MEDS AGAIN, STATES AT HOME SHE TAKES ALL HER AM MEDS SOON SHE GETS UP AND TAKES THE REST OF THEM PRIOR TO GOING TO BED. PATIENT HAS A BEDTIME ROUTINE THAT REQUIRES ONE PERSON ASSIST TO GET HER PANTS ON AND OFF USING THE TOILET OR BSC, MIN ASSIST TO TRANSFER TO BED, GET CALL LIGHT, PHONE, AND WATER WITHIN REACH OF HER LEFT HAND SINCE SHE CANNOT RAISE HER RIGHT ARM. 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 PLAN OF GOING TO ASSISTED LIVING 10/26, BUT SHE WANTS TO GO HOME FOR A FEW DAYS PRIOR TO GOING TO ASSISTED LIVING ON THE FIRST. MESSAGE TO [facility] CASE MANAGEMENT TO HELP HER SEE THE BEST WAY TO ARRANGE THIS. USING O2 AT NIGHT, APPRECIATES EVENING BREATHING TREATMENT
[2020-10-22 08:18] VITALS: BP 144/48
--- NOTE | 2020-10-22 10:49 | NUR ---
ASSUMED CARE OF PT AT 0715. PT IS A&OX4. IS ON ROOM AIR. IS STABLE. REPORTS CHRONIC PAIN D/T POLYARTHRITIS THAT IS BEING MANAGED WITH PAIN MEDS & OTHER THERAPUETIC TECHNIQUES. IS UP WITH 1 ASSIST, GB, WALKER TO BSC & WC. FALL PRECAUTIONS & HOURLY ROUNDING CONTINUED THIS SHIFT. LABS & VITALS REVIEWED. PT SLEEPS WITH WEDGE UNDER BILAT LE. PT IS CURRENTLY IN BED NAPPING. CALL LIGHT WITHIN REACH. IS ABLE TO REPOISTION SELF IN BED. CALL LIGHT WITHIN REACH. WILL CONTINUE TO MONITOR.
[2020-10-22 19:44] VITALS: BP 114/45
--- NOTE | 2020-10-23 01:01 | NUR ---
ASKED FOR EVENING MEDS DURING DISCUSSION OF STOOL SOFTENER REQUEST. TRANSFER FROM TO TOILET USING GRAB BARS WITH GAIT BELT AND ONE PERSON SUPPORT. TRANSFER WITH GAIT BELT AND ASSIST OF ONE TO BED FOR THE NIGHT. USING WEDGE TO ELEVATE FEET. ALL ITEMS WITHING REACH OF HER LEFT HAND SINCE SHE IS UNABLE TO RAISE HER RIGHT ARM MUCH DUE TO RIGHT ROTATOR CUFF INJURY HISTORY. MELATONIN SCHEDULED, MEDS WITH APPLESAUCE
[2020-10-23 05:19] LABS: HEMATOCRIT 20.9 % (37.0-47.0); HEMOGLOBIN 6.8 gm/dL (12.0-15.0); MCH 30.9 pg (26.0-34.0); MCHC 32.4 g/dL (28.0-37.0)
[2020-10-23 05:21] LABS: MCV 95.2 fL (80.0-100.0); PLATELET COUNT 320 thou/uL (150-400); RDW 19.6 % (10.5-14.5); WBC 8.3 thou/uL (4.0-11.0)
[2020-10-23 05:42] LABS: CREATININE 1.4 mg/dL (0.6-1.0); MAGNESIUM 2.4 mg/dL (1.8-2.4); POTASSIUM 4.1 mmol/L (3.5-5.1)
[2020-10-23 08:00] VITALS: BP 119/51
[2020-10-23 08:38] LABS: ABSOLUTE NEUTROPHILS 6.1 thou/uL (1.4-8.2)
[2020-10-23 08:39] LABS: ANISOCYTOSIS 2+; HYPOCHROMASIA 1+; PLATELET ESTIMATE NORMAL
--- NOTE | 2020-10-23 11:30 | NUR ---
yajaira received phone call from son kain, passing on that he will pick her up for tour of [facility] on at 1300 and will bring her back.
--- NOTE | 2020-10-23 11:45 | NUR ---
ASSUMED CARE AT 0700. DID NOT SLEEP WELL DESPITE GIVEN MELATONIN. SHE WAS MEDICATED WITH TYLENOL EARLIER THIS MORNING BY NOC RN AND IS MANAGEABLE. ON 2L 02 AND PT USES OXYGEN FOR COMFORT. REPORTED HAVING HARD STOOLS AND REQUESTED FOR STOOL SOFTNER. HGB WAS 6.8 FROM 7.7. NO OVERT BLEEDING NOTED. OCCULT STOOL POSITIVE. DR CHAVEZ WITH GI CONSULTED. RODRIGUEZ [facility] SILVICULTURE WITH GI, WILL SEE PT LATER TODAY. PT PARTICIPATING WITH THEARAPY. NO SIGN OF HYPOTENSION. DIURESING ADEQ.
[2020-10-23 16:28] VITALS: BP 120/48; BP 125/52; BP 128/43; BP 136/49
--- NOTE | 2020-10-24 02:44 | NUR ---
PT CARE ASSUMED WITH PT IN W/C FINISHING BLOOD TRANSFUSION.BLOOD FINISHED WITH NO ISSUES AND POST TRANSFUSION VITAL SIGN WNL.PT IS A/O X4.PT IS UP WITH X1 ASSIST TO W/C WITH GAIT BELT.PT IS ON 2L OF O2 VIA NC.WILL PT C/O PAIN AND PAIN MANAGED WITH TRAMADOL.WILL CONTINUE TO MONITOR PER POC
[2020-10-24 05:38] LABS: HEMATOCRIT 23.8 % (37.0-47.0); HEMOGLOBIN 7.9 gm/dL (12.0-15.0); MCH 31.5 pg (26.0-34.0); MCHC 33.2 g/dL (28.0-37.0); MCV 94.6 fL (80.0-100.0); RBC 2.52 mil/uL (4.20-5.00); RDW 17.8 % (10.5-14.5); WBC 7.7 thou/uL (4.0-11.0)
[2020-10-24 07:28] VITALS: BP 142/56
--- NOTE | 2020-10-24 09:59 | HC ---
[facility] [place] [address] CONSULTATION Name: THIAGO SMITH Room #: 515-P [facility] IN M.R.#: [id number] Admission: 10/13/20 Attend Phys: Primitivo Valadez MD Discharge: Date of : 40 Report #: [id number] THIS REPORT FOR: cc: Durga Brambila MD, Neal A. MD Deutch,Durga Chou. PhD ~ DATE OF SERVICE: 10/15/2020 NEUROBEHAVIORAL STATUS EXAM AGE: 80. ATTENDING PHYSICIAN: Primitivo Valadez MD CASINO BEVERAGE SERVER: Durga Huber, PhD CLINICAL PRESENTATION: The patient is an 80-year-old female admitted to the rehabilitation unit at [facility] for a comprehensive inpatient program. She was living at her home independently, primarily wheelchair bound. Her problem list at admission to the hospital included abdominal pain, acute CVA, GENA, AMS, anemia, bilateral knee pain, bladder obstruction, chronic anemia, coronary artery disease, urinary obstruction and retention and UTI. A minor head injury without loss of consciousness is reported. 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 A complete description of her medical condition and history can be found in her medical records. Neuropsychological consultation was requested to provide assistance in the assessment of cognitive and emotional status and to provide recommendations and services. Prior to this most recent admission, the patient was living alone in her own home. She does have one son that has been helping. She quit driving about 2 years ago. The patient had 3 children. One child from suicide about 14 years ago. Her sister and spouse in the fall, also contributing to feelings of depression. The patient was independent with managing bills but had help coming into the house. 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 TECHNIQUES UTILIZED: Clinical interview, review of medical records, staff consultation and behavioral observation, mini mental status exam 2 standard version, and verbal fluency assessment. EXAMINATION FINDINGS: The patient was alert and cooperative with the [facility] [address] [place] [address] CONSULTATION Name: THIAGO SMITH Room #: 515-P [facility] IN M.R.#: [id number] Admission: 10/13/20 Attend Phys: Primitivo Valadez MD Discharge: Date of : 40 Report #: [id number] assessment. She accurately described the reason for her hospitalization. There is no evidence of aphasia. Her thoughts are logical and goal oriented. There is no evidence of thought disorder. She does not report auditory or visual hallucinations or suicidal ideation. The patient does report subjective feelings of anxiety and depression. A prior history of depression is reported. She reports mild difficulty with memory and word finding. She does not report difficulty with sleep or appetite. Her grandmother and her mother both had Alzheimer's disease. Performance on the MMSE 2 brief version is within normal limits with a raw score 16/16. Performance on the MMSE 2 standard version is within normal limits with a raw score 29/30. Because of polyarthritis and severe difficulty with upper extremity dexterity, drawing tasks were not administered. Letter fluency was in the average range with a T score of 44, percentile rank of 27. Category fluency was low average with a T score of 42 and percentile rank of 21. Overall, total fluency was low average with a T score 37, percentile rank at 10. The patient is presenting with mild difficulty with verbal fluency indicating executive dysfunction. Deficits in executive functioning are likely in a mild range. She is alert and oriented. DIAGNOSTIC IMPRESSION: Unspecified anxiety disorder with depression. Mild neurocognitive disorder, unspecified, without behavior disorder. RECOMMENDATIONS: Continued speech therapy to assist with development of compensatory strategies. A treatment program for anxiety and depression is indicated that would include both counseling and psychiatric management of medication. Verbal praise and complements about participation in therapies and ability to maintain optimal independence will also help overall adjustment. Helping the patient see her strengths and resources and progress in treatment will benefit her self-confidence. Thank you very much for allowing me to provide the consultation on this patient. <ELECTRONICALLY SIGNED> By: Durga Huber, PhD 10/24/20 [id number] Durga Huber, PhD /nt
--- NOTE | 2020-10-24 11:35 | NUR ---
ASSUMED CARE AT 0700. 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 SHE RECEIVED A UNIT OF BLOOD TRANSFUSION YESTERDAY AND HER HGB TODAY IS 7.9. PT FEELING MUCH BETTER. USES 02 ALL TIME [employer] SHE REPORTS USING PRN IN THE DAYS. TRAMADOL GIVEN PRIOR TO PHY THERAPY TODAY WITH PARTIAL RELIEF FOR HER NECK/SHOULDER. HAD A SMALL BM EARLIER TODAY. DIVLADISLAV SMITH. PLAN FOR HER TO TOUR [facility] TOMORROW AFTERNOON WITH SON AND PLAN FOR DC HOME ON FRIDAY. PT WANTS TO GO HOME FIRST BEFORE GOING TO [place]. CM WILL SPEAK AND ARRANGE WITH FAMILY.
--- NOTE | 2020-10-24 13:48 | NUR ---
team meeting, reccommendation: day pass tomorrow for tour of [facility] in [place], [place]. dc 25th, home with pd 24h for 4 days, then going to [facility]. no dme. will need assist with pills and bills. shruthi hartmann ( pt, ot, st, nursing and sw).
--- NOTE | 2020-10-24 15:05 | PLAN ---
[facility] [place] [address] REHAB UNIT PLAN OF CARE Name: THIAGO SMITH Room #: 515-P ADM IN M.R.#: [id number] Admission: 10/13/20 Attend Phys: Primitivo Valadez MD Discharge: Date of : 40 Report #: [id number] THIS REPORT FOR: cc: Durga Brambila MD, Neal A. MD Smithson,Primitivo Evans MD ~ DATE OF SERVICE: 10/16/2020 PROGRESS NOTE/OVERALL PLAN OF CARE SUBJECTIVE: The patient is seen on the inpatient rehabilitation clifford at [facility]. She is in no distress. Last recorded temperature is 97.6, pulse 61, respirations 16, blood pressure 126/37. She is desiring to have her respiratory therapy treatments started and she is noted to have an albuterol treatment ordered. She is on prednisone and has acute inflammatory polyarthritis. She notes she has chronic prior rotator cuff tears. She is discussing possibly assisted living. OBJECTIVE: CHEST: Sounded clear. CARDIAC: Regular rate and rhythm. ABDOMEN: Bowel sounds positive, nontender. GENITOURINARY AND RECTAL: Deferred. EXTREMITIES: She has limited range of motion of both shoulders with some discomfort with movement. Driver Medic is decreased. Arthritic changes of her hands. She is unable to lift her upper extremities more than a few inches off the bed. Left upper extremity range of motion is a little better, although still limited with left upper extremity strength that is more of a grade 3+ to 4-/5 distally where as his right upper extremity is more of a grade 3+. She is able to lift both lower extremities antigravity, but she has chronic arthritic changes of both hands and knees, left knee worse than right. Some chronic changes of her ankles as well as her feet. No focal calf swelling. Transfers have been min assist with gait up to mod assist 15 feet with a front-wheeled walker. In occupational therapy, lower body dressing is max assist, upper body dressing is max assist. She has mild comprehensive deficits. ASSESSMENT: An 80-year-old female with the following problem list: 1. Acute inflammatory polyarthritis. X-rays of bilateral shoulders showed extensive destruction, distracted bilateral humeral heads, findings related to Charcot joint versus inflammatory arthritis. She was treated with IV steroids due to inflammatory polyarthritis and now is currently on oral steroids. 2. Severe degenerative arthritis, shoulders, knees and spine. 3. Acute renal insufficiency superimposed on chronic kidney disease. 4. Chronic anemia. 5. [place] [address] REHAB UNIT PLAN OF CARE Name: THIAGO SMITH Room #: 515-P [facility] IN M.R.#: [id number] Admission: 10/13/20 Attend Phys: Primitivo Valadez MD Discharge: Date of : 40 Report #: [id number] 6. Hypertension. 7. Depression. PLAN: The overall plan of care is based on the preadmission screen and information garnered from therapy assessments. 1. Estimated length of stay is probably around 14 days. 2. Medical prognosis is reasonably good. 3. Anticipated interventions includes the interdisciplinary acute inpatient rehabilitation program. 4. Anticipated functional outcomes would be for the patient to become hopefully modified independent with basic transfers and basic ADLs, also to be independent. From a cognitive level, she currently has fzej-gw-mfaogovy cognitive deficits with saxl-ga-evwgxjrr memory deficits. 5. Discharge destination would be to the home setting with increased assistance versus assisted living. 6. Expected therapy by discipline includes PT, OT and speech 1 hour per day each five days a week throughout the duration of the acute inpatient rehabilitation stay. <ELECTRONICALLY SIGNED> By: Primitivo Valadez MD 10/24/20 1505 [id number] Primitivo Valadez MD /[facility]
[2020-10-24 19:49] VITALS: BP 118/43
--- NOTE | 2020-10-25 00:37 | NUR ---
assumed care approx 1900 evening 10/24. pt sitting up in w/c at change of shift alert and oriented x4, appropriate and cooperative. pt assisted in bathroom to void on toilet before hs. pt took hs meds with applesauce tolerating well. pt appears to be sleeping soundly in bed at present. bed alarm on and call light in reach. will continue to monitor.
[2020-10-25 07:15] VITALS: BP 118/63
--- NOTE | 2020-10-25 07:57 | NUR ---
ASSUMED CARE AT 0700. PATIENT IS ALERT AND ORIENTED X4. 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 LUNGS ARE CLEAR AND DEMINISHED. 02 AT 2L PER N/C. PATIENT IS UP IN W/C FOR MEALS. PATIENT HAS S.L. IN HER RIGHT F.A. PLAN FOR PASS LATER TODAY. FALL AND SAFETY PROTOCOLS IN PLACE. C/O GENERALIZED PAIN. MEDICATED WITH PRN PAIN MED. CONTINUES TO PROGRESS TOWARDS D/C GOALS. WILL CONTINUE TO MONITER.
--- NOTE | 2020-10-25 14:53 | NUR ---
PATIENT LEFT ON PASS TO VISIT ASSISTED LIVING WITH HER SON. PATIENT LEFT IN GOOD CONDITION PER W/C WITH 02 AT 2L PER N/C. WILL CONTINUE TO MONITER UPON HER RETURN.
[2020-10-25 19:34] VITALS: BP 139/54
--- NOTE | 2020-10-26 01:02 | NUR ---
assumed care at 1900, pt awake, alert and oriented, sitting up in the w/c, assessments as charted, took meds whole in apple sauce tolerated well, assisted to the bathroomx1 assist with a wheelchair and a gait belt, tolerated well, denies any concerns, sleeping at this time, progressing well towards poc and discharge
[2020-10-26 06:10] LABS: HEMATOCRIT 23.4 % (37.0-47.0); HEMOGLOBIN 7.7 gm/dL (12.0-15.0)
[2020-10-26] MEDS ORDERED: MUCUS RLF DM E1 EACH PO (10:00)
[2020-10-26] MEDS ORDERED: MELATONIN5 M1 PO (10:00)
[2020-10-26] MEDS ORDERED: RAYOS5 MG PO (10:00)
--- NOTE | 2020-10-26 11:11 | NUR ---
ASSUMED CARE AT 0700. ALERT AND ORIENTATED. PT DID NOT SLEEP WELL. PT IS ANXIOUS ABOUT DISCHARGE PLANNING TODAY AND SON IS COMING IN AROUND 2PM. PAIN IS STABLE WITH TYLENOL GIVEN EARLIER THIS MORNING BY NOC RN. STILL COMPLAINES OF HARD STOOLS, GIVEN COLACE AND SENNA. WORKED WITH PT/OT/ST TODAY. LUNG IS CLEAR AND DIM AT BASES AND IS ON 2L 02. UP WITH ASSIST WITH GAIT BELT, ASSISTED WITH WC TO BATHROOM AND ABLE TO STAND AND PIVOT TO THE TOILET. TOLERATES HER MEDS WITH APPLE SAUCE. PLAN FOR DC HOME TODAY WITH SON.
--- NOTE | 2020-10-26 15:28 | NUR ---
FAXED DC ORDERS/SUMMARY TO [facility] SPOKE WITH MATEO IN INTAKE THEY RECEIVED ORDERS AND WILL ARRANGE VISITS WITH PT.
== END 2020-10-26 14:30 | disposition home health service (06) | DRG 812 ==
PROVIDERS: Nurse Practitioner; Nurse Practitioner Family; ADMIT Physical Medicine & Rehabilitation; ATTEND Physical Medicine & Rehabilitation
PROC: 30233N1 Transfusion of Nonautologous Red Blood Cells into Peripheral Vein, Percutaneous Approach (ICD-10-PCS; principal; 2020-10-23)
DX: D62 Acute posthemorrhagic anemia (principal); N17.9 Acute kidney failure, unspecified; I13.0 Hypertensive heart and chronic kidney disease with heart failure and stage 1 through stage 4 chronic kidney disease, or unspecified chronic kidney disease; R53.81 Other malaise; M06.4 Inflammatory polyarthropathy; I25.10 Atherosclerotic heart disease of native coronary artery without angina pectoris; E78.5 Hyperlipidemia, unspecified; D64.9 Anemia, unspecified; N18.9 Chronic kidney disease, unspecified; I34.0 Nonrheumatic mitral (valve) insufficiency; G47.00 Insomnia, unspecified; J44.9 Chronic obstructive pulmonary disease, unspecified; I50.9 Heart failure, unspecified; G47.33 Obstructive sleep apnea (adult) (pediatric); F32.9 Major depressive disorder, single episode, unspecified; M19.012 Primary osteoarthritis, left shoulder; M19.011 Primary osteoarthritis, right shoulder; M17.0 Bilateral primary osteoarthritis of knee; G31.84 Mild cognitive impairment of uncertain or unknown etiology; F41.9 Anxiety disorder, unspecified; Z60.2 Problems related to living alone; K57.90 Diverticulosis of intestine, part unspecified, without perforation or abscess without bleeding; K59.00 Constipation, unspecified; Z88.1 Allergy status to other antibiotic agents; Z88.8 Allergy status to other drugs, medicaments and biological substances; Z95.5 Presence of coronary angioplasty implant and graft; Z90.710 Acquired absence of both cervix and uterus; Z99.3 Dependence on wheelchair
CPT/HCPCS: 10112

== ENCOUNTER → 2020-11-08 | Outpatient (CLI) | payer OTHER, BC ==
[~2020-11-08] MED LIST changes: +MELATONIN5 M1 PO; +MUCUS RLF DM E1 EACH PO
== END ==
LOC: SJCVC 09:27
PROVIDERS: ATTEND Internal Medicine Cardiovascular Disease
DX: I25.10 Atherosclerotic heart disease of native coronary artery without angina pectoris (principal); E78.00 Pure hypercholesterolemia, unspecified; I70.1 Atherosclerosis of renal artery; I73.9 Peripheral vascular disease, unspecified; J44.9 Chronic obstructive pulmonary disease, unspecified; I65.23 Occlusion and stenosis of bilateral carotid arteries; M89.49 Other hypertrophic osteoarthropathy, multiple sites; I11.0 Hypertensive heart disease with heart failure; I50.9 Heart failure, unspecified; M19.90 Unspecified osteoarthritis, unspecified site; Z98.61 Coronary angioplasty status; G47.33 Obstructive sleep apnea (adult) (pediatric); Z90.710 Acquired absence of both cervix and uterus; Z98.890 Other specified postprocedural states; Z79.82 Long term (current) use of aspirin; Z79.899 Other long term (current) drug therapy; Z87.19 Personal history of other diseases of the digestive system; Z87.891 Personal history of nicotine dependence; Z82.49 Family history of ischemic heart disease and other diseases of the circulatory system

== ENCOUNTER → 2020-12-15 | Outpatient (CLI) | payer OTHER, BC ==
[~2020-12-15] MED LIST changes: +CELEXA 20 MG TA20 MG PO; +WELLBUTRIN SR150 MG PO
[2020-12-15 09:15] VITALS: BP 116/30
[2020-12-15 11:25] VITALS: BP 150/45; BP 169/53
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
== END ==
LOC: OPONC 10:42
PROVIDERS: ATTEND Nurse Practitioner
DX: D50.9 Iron deficiency anemia, unspecified (principal)
CPT/HCPCS: 91030

== ENCOUNTER 2021-03-06 12:30 | Emergency (ER) | payer OTHER, BC ==
[~2021-03-06] VITALS: Ht 152.4 cm; Wt 52.6 kg
--- NOTE | ~2021-03-06 | EMS ---
[address] [address] EMS Patient Care Report Name: THIAGO SMITH Room #: DEP YONIS Adame#: [id number] Admission: 03/06/21 Attend Phys: Discharge: 03/06/21 Date of : 40 Report #: [id number] THIS REPORT FOR: //name// Report Transmitted: 03/06/2021 16:42 EMS Care Summary [facility] MED-ACT Incident [id number] @ 03/06/2021 11:37 Incident Location [address] [place] [address] Patient THIAGO SMITH Female, 80 Years 1940 Patient Address [address] [place] [address] Patient History Hypertension (HTN),Stroke/CVA,Arthritis,Depression,Anemia,Sleep Apnea, Patient Allergies Other drug allergy,Vancomycin, Patient Medications Acetaminophen, DuoNeb, Torsemide, Valsartan, Atorvastatin, Citalopram, Prednisone, Tramadol, Fiber Supplements, Simethicone, Docusate Sodium, Magnesium Oxide, Aspirin, Pantoprazole, Estradiol, Bupropion, Lidocaine, Melatonin, Albuterol, Famotidine, Chief Complaint "hemoglobin is getting low" Disposition Transported No Lights/[place] Dispatch Reason Sick Person Transported To [address] [address] EMS Patient Care Report Name: THIAGO SMITH Room #: DEP YONIS Adame#: [id number] Admission: 03/06/21 Attend Phys: Discharge: 03/06/21 Date of : 40 Report #: [id number] Narrative 1150 responded to a call for an 80yo female who reports that she "doesn't feel right" and she "knows her hemoglobin is getting low because she's been through this before". She says that she can't focus and she is weaker than normal. Pt has an iron transfusion scheduled this afternoon but reports that she can't wait that long. She wishes to be transported to [place] because that's where her finishing machine tender is located. Pt is normally in wheelchair and is able to stand with assistance. Vitals and pt condition monitored enroute to the hospital and transfer of care made in triage to RN. Initial Vitals @12:22P: 75,BP: 151/60,SpO2: 93, @12:15P: 75,BP: 133/53,SpO2: 93, @12:06P: 83,R: 14,BP: 156/51,Pain: 2/10,Temp: 97.6F,SpO2: 95, Impression Generalized Weakness Procedures @12:24Surgical Mask on PatientResponse: Unchanged Timeline 11:36,Call Received 11:36,Psap Call 11:37,Dispatched 11:40,En Route 11:47,On Scene 11:48,At Patient 12:05,Depart Scene 12:06,BP: 156/51 M,PULSE: 83,RR: 14 R,SPO2: 95 Ox,ETCO2: ,BG: ,PAIN: 2,GCS: , 12:15,BP: 133/53 M,PULSE: 75,RR: R,SPO2: 93 Ox,ETCO2: ,BG: ,PAIN: ,GCS: , 12:22,BP: 151/60 M,PULSE: 75,RR: R,SPO2: 93 Ox,ETCO2: ,BG: ,PAIN: ,GCS: , 12:24,Surgical Mask on Patient,Response: Unchanged 12:26,At Destination 13:14,Call Closed Disclaimer v1.1 Copyright 2020 [employer] This EMS Care Summary contains data elements from the applicable legal record (which may be displayed differently). It is designed to provide pertinent information for the following purposes: continuity of care, clinical quality, and state data reporting. The complete legal record is available to ED staff and administrators of the receiving hospital in [employer] Patient Tracker. All data is provided "as is."
[2021-03-06 12:59] LABS: ABSOLUTE NEUTROPHILS 9.5 thou/uL (1.4-8.2); BASOPHILS 0.4 % (0.0-2.0); EOSINOPHILS 0.5 % (0.0-3.0); HEMATOCRIT 22.6 % (37.0-47.0); LYMPHOCYTES 2.8 % (24.0-44.0); MCH 24.6 pg (26.0-34.0); MCHC 30.9 g/dL (28.0-37.0); MCV 79.4 fL (80.0-100.0); MONOCYTES 2.6 % (1.0-8.0); PLATELET COUNT 436 thou/uL (150-400); POLYS 93.7 % (36.0-66.0); RBC 2.85 mil/uL (4.20-5.00); RDW 18.8 % (10.5-14.5); WBC 10.2 thou/uL (4.0-11.0)
[2021-03-06 13:02] LABS: ANION GAP 5 mmol/L (7-16); BUN 37 mg/dL (7-18); CHLORIDE 104 mmol/L (98-107); CO2 31 mmol/L (21-32); CREATININE 1.4 mg/dL (0.6-1.0); GLUCOSE 107 mg/dL (74-106); POTASSIUM 4.2 mmol/L (3.5-5.1); SODIUM 140 mmol/L (136-145)
[2021-03-06 13:12] LABS: ALBUMIN 2.8 g/dL (3.4-5.0); SGOT 23 U/L (15-37); SGPT 19 U/L (14-59); TOTAL BILIRUBIN 0.3 mg/dL (0.2-1.0); TOTAL PROTEIN 6.1 g/dL (6.4-8.2); TROPONIN-I <0.06 ng/mL (<0.06)
[2021-03-06] MEDS ORDERED: BYSTOLIC10 MG PO (13:16)
[2021-03-06 14:22] LABS: ANISOCYTOSIS 1+; PLATELET ESTIMATE NORMAL
--- NOTE | 2021-03-06 15:17 | EKG ---
[address] [address] ELECTROCARDIOGRAM REPORT Name: THIAGO SMITH [facility] [id number] Admission: 03/06/21 Attend Phys: Discharge: Date of : 40 Report #: [id number] [facility] ED Test Date: 2021-03-06 Test Time: 13:05:33 Pat Name: THIAGO SMITH Department: Room: Gender: F Muleser: ROSARIO : 1940 Requested By: Edenilson Hurtado Order Number: [id number] MD: Luis Quezada Measurements Intervals Cornell Rate: 74 P: 84 MI: 196 QRS: 15 QRSD: 101 T: 35 QT: 377 QTc: 419 Interpretive Statements Sinus rhythm Compared to ECG 10/10/2020 22:03:42 No significant changes Electronically Signed On 03-06-2021 15:17:48 CDT by Luis Quezada [email or web address] <ELECTRONICALLY SIGNED> By: Luis Quezada MD, [facility] 03/06/21 1517 1305 1305 Luis Quezada MD, FACC /EPI
[2021-03-06 15:20] LABS: URINE BILIRUBIN NEGATIVE (Negative); URINE BLOOD NEGATIVE (Negative); URINE CLARITY CLEAR; URINE COLOR YELLOW; URINE GLUCOSE-RANDOM* NEGATIVE (Negative); URINE KETONES NEGATIVE (Negative); URINE LEUKOCYTES-REFLEX NEGATIVE (Negative); URINE NITRITE-REFLEX NEGATIVE (Negative); URINE PROTEIN (DIPSTICK) NEGATIVE (Negative); URINE SPECIFIC GRAVITY <= 1.005 (1.005-1.035); URINE UROBILINOGEN 0.2 E.U./dl (0.2-1.0)
[2021-03-06 15:57] VITALS: BP 137/48
== END 2021-03-06 15:57 | disposition home or self-care (01) ==
LOC: ER 12:30
PROVIDERS: Emergency Medicine
DX: D64.9 Anemia, unspecified (principal); Z20.822 Contact with and (suspected) exposure to COVID-19; R06.02 Shortness of breath; E86.0 Dehydration; R53.1 Weakness; M19.90 Unspecified osteoarthritis, unspecified site; J44.9 Chronic obstructive pulmonary disease, unspecified; I50.9 Heart failure, unspecified; I11.0 Hypertensive heart disease with heart failure; I25.10 Atherosclerotic heart disease of native coronary artery without angina pectoris; F17.210 Nicotine dependence, cigarettes, uncomplicated; F32.9 Major depressive disorder, single episode, unspecified; Z90.710 Acquired absence of both cervix and uterus; Z90.49 Acquired absence of other specified parts of digestive tract; Z79.2 Long term (current) use of antibiotics; Z79.82 Long term (current) use of aspirin; Z79.899 Other long term (current) drug therapy; Z88.6 Allergy status to analgesic agent; Z88.1 Allergy status to other antibiotic agents

== ENCOUNTER → 2021-03-22 | Outpatient (CLI) | payer OTHER, BC | LOC: SJCVCIMAG 08:09 | PROVIDERS: ATTEND Nuclear Medicine Nuclear Cardiology | DX: I70.203 Unspecified atherosclerosis of native arteries of extremities, bilateral legs (principal); I77.4 Celiac artery compression syndrome; K55.1 Chronic vascular disorders of intestine; Z78.0 Asymptomatic menopausal state; Z95.828 Presence of other vascular implants and grafts; Z79.899 Other long term (current) drug therapy ==

== ENCOUNTER → 2021-03-27 | Outpatient (CLI) | payer OTHER, BC ==
[~2021-03-27] MED LIST changes: +ARTHRITIS PAIN100 GM TOP
== END ==
LOC: SJCVC 12:25
PROVIDERS: ATTEND Internal Medicine Cardiovascular Disease
DX: R94.31 Abnormal electrocardiogram [ECG] [EKG] (principal); I25.10 Atherosclerotic heart disease of native coronary artery without angina pectoris; I73.9 Peripheral vascular disease, unspecified; K55.1 Chronic vascular disorders of intestine; I70.1 Atherosclerosis of renal artery; I65.23 Occlusion and stenosis of bilateral carotid arteries; I11.0 Hypertensive heart disease with heart failure; E78.00 Pure hypercholesterolemia, unspecified; R53.83 Other fatigue; I50.9 Heart failure, unspecified; G47.33 Obstructive sleep apnea (adult) (pediatric); Z87.19 Personal history of other diseases of the digestive system; Z79.82 Long term (current) use of aspirin; Z79.899 Other long term (current) drug therapy; Z87.891 Personal history of nicotine dependence; Z72.89 Other problems related to lifestyle; Z88.1 Allergy status to other antibiotic agents; Z88.8 Allergy status to other drugs, medicaments and biological substances

== ENCOUNTER 2021-03-31 11:58 | Emergency (ER) | payer OTHER, BC ==
[~2021-03-31] VITALS: Ht 152.4 cm; Wt 61.2 kg
--- NOTE | ~2021-03-31 | EMS ---
[address] [address] EMS Patient Care Report Name: THIAGO SMITH Room #: DEP YONIS Adame#: [id number] Admission: 03/31/21 Attend Phys: Discharge: 03/31/21 Date of : 40 Report #: [id number] THIS REPORT FOR: //name// Report Transmitted: 03/31/2021 15:49 EMS Care Summary [facility] MED-ACT Incident [id number] @ 03/31/2021 11:08 Incident Location [address] [place] [address] Patient THIAGO SMITH Female, 80 Years 1940 Patient Address [address] [place] [address] Patient History Congestive Heart Failure (CHF),Chronic Obstructive Pulmonary Disease (COPD),Hypertension (HTN),Arthritis,Depression,Anemia,Coronary Artery Disease (CAD), Patient Allergies Vancomycin, Patient Medications Acetaminophen, Bystolic, Atrovent, Melatonin, Albuterol, Tramadol, Hydrocodone, Famotidine, Aspirin, Calcium, Pantoprazole, Fish Oil, Atorvastatin, Citalopram, Torsemide, Valsartan, Prednisone, Bupropion, Estradiol, Chief Complaint arthitis in knee hurting more Disposition Transported No Lights/[place] Dispatch Reason Sick Person Transported To [address] [address] EMS Patient Care Report Name: THIAGO SMITH Room #: DEP Deep#: [id number] Admission: 03/31/21 Attend Phys: Discharge: 03/31/21 Date of : 40 Report #: [id number] Narrative [id number] was called for an 80y/o female having knee pain. On EMS arrival pt is laying on bed and is showing no obvious signs of acute distress. Pt is warm, pink and dry, GCs of 15, breathing is non-labored, EMS notes pt is on O2 via NC and ABC's are intact. Pt states that she has arthritis in her right knee and last night her knee started to hurt more than normal. Pt has been given her hydrocodone to help with the pain. Pt reports having thrown up about an hour after taking pain medication and also did not eat with her medication. Pt is on O2 at 2lpm all the time due to COPD. Pt states she has not had any trauma to knee that would cause an increase in pain. Pt denies chest pain, SOB, lightheadedness, other pain and nausea while with EMS. Physical exam shows no signs of trauma to leg. Pt is sheet lifted to cot, secured via department policy then moved to unit. Pt is continued on O2 at 2lpm via NC. V/S are monitored while en route to [place]. Pt starts to report some nausea about 5 minutes from hospital. Pt throws up once then reports nausea is gone. Pt is then sheet lifted to ER bed 11 and report is given to RN. 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: 2 Device: Nasal Cannula (NC) Response: UnchangedSucceeded, 11:07,Call Received 11:07,Psap Call 11:08,Dispatched 11:09,En Route 11:15,On Scene 11:18,At Patient 11:20,BP: 155/64 M,PULSE: 69,RR: 18 R,SPO2: 95 Ox,ETCO2: ,BG: ,PAIN: 4,GCS: , 11:29,Depart Scene 11:31,BP: 162/65 M,PULSE: 70,RR: R,SPO2: 93 Ox,ETCO2: ,BG: ,PAIN: ,GCS: , 11:40,Surgical Mask on Patient,Response: Unchanged 11:41,BP: / M,PULSE: 69,RR: R,SPO2: 96 Ox,ETCO2: ,BG: ,PAIN: ,GCS: , [facility] [address] [place] [address] EMS Patient Care Report Name: THIAGO SMITH Room #: ANTONIO Adame#: [id number] Admission: 03/31/21 Attend Phys: Discharge: 03/31/21 Date of : 40 Report #: [id number] 11:49,BP: 117/86 M,PULSE: 70,RR: R,SPO2: 93 Ox,ETCO2: ,BG: ,PAIN: ,GCS: , 11:54,At Destination 12:10,Call Closed Disclaimer v1.1 Copyright 2020 [employer] This EMS Care Summary contains data elements from the applicable legal record (which may be displayed differently). It is designed to provide pertinent information for the following purposes: continuity of care, clinical quality, and state data reporting. The complete legal record is available to ED staff and administrators of the receiving hospital in [employer]'s Patient Tracker. All data is provided "as is."
[~2021-03-31 11:58] MED LIST changes: -ARTHRITIS PAIN100 GM TOP
[2021-03-31] MEDS ORDERED: ARTHRITIS PAIN100 GM TOP (13:00)
[2021-03-31 13:25] VITALS: BP 158/53
== END 2021-03-31 13:25 ==
LOC: ER 11:58
DX: M17.11 Unilateral primary osteoarthritis, right knee (principal); M25.562 Pain in left knee; M25.561 Pain in right knee; G89.29 Other chronic pain; I11.0 Hypertensive heart disease with heart failure; I50.9 Heart failure, unspecified; I25.10 Atherosclerotic heart disease of native coronary artery without angina pectoris; J44.9 Chronic obstructive pulmonary disease, unspecified; G47.33 Obstructive sleep apnea (adult) (pediatric); F32.9 Major depressive disorder, single episode, unspecified; F17.210 Nicotine dependence, cigarettes, uncomplicated; Z90.710 Acquired absence of both cervix and uterus; Z79.82 Long term (current) use of aspirin; Z79.899 Other long term (current) drug therapy; Z88.1 Allergy status to other antibiotic agents; Z88.6 Allergy status to analgesic agent; Z91.09 Other allergy status, other than to drugs and biological substances; Z88.8 Allergy status to other drugs, medicaments and biological substances

== ENCOUNTER → 2021-05-01 | Outpatient (CLI) | payer OTHER, BC ==
[~2021-05-01] MED LIST changes: +ARTHRITIS PAIN100 GM TOP
== END ==
LOC: SJCVCIMAG 08:39
PROVIDERS: ATTEND Internal Medicine Cardiovascular Disease
DX: I25.10 Atherosclerotic heart disease of native coronary artery without angina pectoris (principal); R53.83 Other fatigue; Z88.1 Allergy status to other antibiotic agents; Z88.8 Allergy status to other drugs, medicaments and biological substances; I11.0 Hypertensive heart disease with heart failure; G47.33 Obstructive sleep apnea (adult) (pediatric); E78.00 Pure hypercholesterolemia, unspecified; J44.9 Chronic obstructive pulmonary disease, unspecified; I50.9 Heart failure, unspecified; Z87.891 Personal history of nicotine dependence